=== PATIENT | female | born 1965 | race Caucasian/White ===

== ENCOUNTER 2017-03-12 22:32 | Inpatient (IN) ==
--- NOTE | 2017-03-12 22:56 | Emergency Department Note ---
Disposition Clinical Impression: Right fibular fracture Qualifiers: Encounter type: initial encounter Fibula location: proximal Fracture type: closed Fracture morphology: other fracture Qualified Code(s): S82.831A - Other fracture of upper and lower end of right fibula, initial encounter for closed fracture Disposition: Admitted As Inpatient Condition: Good Time of Disposition: 00:38 General Adult HPI - General Chief complaint: ED Extremity Injury, Lower Stated complaint: Right knee injury Time Seen by Provider: 03/12/17 22:46 Source: patient, EMS Limitations: no limitations Nursing Notes Reviewed: Yes Vital Signs Reviewed: Yes - History of Present Illness HPI Narrative: Female patient complaining of right knee pain. She states that she fell earlier today. She states this is mechanical fall. She was standing at the sink and the carpet came out from under her. She states she fell backwards. She denies striking her head. She reports right knee pain. There are no provoking or alleviating factors. She has taken her home Percocet to help with the pain. Pain Scale: 10 - Related Data Home Medications Medication Instructions Recorded Confirmed Carvedilol 3.125 mg PO BID 08/06/15 11/29/15 Cetirizine HCl [Zyrtec] 10 mg PO DAILY 08/06/15 11/29/15 Cholecalciferol (Vitamin D3) 1,000 unit PO DAILY 08/06/15 11/29/15 [Vitamin D3] Ferrous Sulfate 325 mg PO BID 08/06/15 11/29/15 OxyCODONE/APAP 5/325 [Percocet 1 tab PO BID PRN 08/06/15 11/29/15 5/325 MG] Pioglitazone HCl [Actos] 30 mg PO DAILY 08/06/15 11/29/15 Rosuvastatin [Crestor] 40 mg PO DAILY 08/06/15 11/29/15 Albuterol Sulfate [Ventolin Hfa] 1 - 2 puff IH Q6H 11/29/15 11/29/15 Gabapentin [Neurontin] 100 mg PO TID 11/29/15 11/29/15 Pantoprazole Sodium [Protonix] 40 mg PO DAILY 11/29/15 11/29/15 Previous Rx's Medication Instructions Recorded GuaiFENesin ER [Mucinex] 600 mg PO BID PRN #20 tbbp.12hr 12/02/15 Levofloxacin [Levaquin] 750 mg PO DAILY #7 tablet 12/02/15 Nystatin POWDER [Nystop] 1 appl TP BID #1 bottle 12/02/15 predniSONE [PredniSONE] 10 mg PO DAILY #40 tablet 12/02/15 Allergies Allergy/AdvReac Type Severity Reaction Status Date / Time No Known Allergies Allergy Verified 08/06/15 17:18 All systems ED: reviewed and negative except as stated. Constitutional: Denies: fever, chills ENT ED: Denies: congestion Cardiovascular: Denies: chest pain, palpitations, syncope Respiratory: Denies: cough, dyspnea Gastrointestinal: Denies: abdominal pain, nausea, vomiting, diarrhea Genitourinary: Denies: urgency, dysuria, frequency, hematuria Musculoskeletal: Reports: other (Right knee pain patient states she has bilateral knee pain chronically however her right knee hurt after her fall.). Denies: back pain, neck pain Integumentary: Reports: abrasion (To right knee). Denies: rash Neurological: Denies: headache, weakness, numbness, paresthesias Past Medical History - Past Medical History Medical history: Reports: asthma, COPD, diabetes, hyperlipidemia, hypertension, renal disease, other Surgical history: Reports: no surgical history Psychiatric history: Reports: no psych history AUTO BODY PAINTER history: Reports: no AUTO BODY PAINTER history - Social History Smoking Status: Current every day smoker Smokeless Tobacco Status: No Alcohol use: Reports: none Drug use: Reports: none Physical Exam - General Limitations: no limitations General appearance: alert, in no apparent distress - Head Head exam: atraumatic, normocephalic, normal inspection - Eye Eye exam: Present: normal appearance, PERRL, EOMI. Absent: scleral icterus - ENT ENT exam: normal exam, normal oropharynx, mucous membranes moist - Neck Neck exam: Present: normal inspection, full ROM, trachea midline. Absent: tenderness, meningismus, lymphadenopathy - Chest Chest inspection: Present: normal inspection, symmetric chest wall rise. Absent : tenderness - Respiratory Respiratory exam: Present: normal lung sounds bilaterally, respiratory distress. Absent: wheezes - Cardiovascular Cardiovascular exam: Present: regular rate, normal rhythm, normal heart sounds - Abdominal Exam Abdominal exam: Present: soft, Non-Tender, normal bowel sounds. Absent: tenderness, distention, guarding, rebound, rigidity, organomegaly - Extremities Exam Extremities exam: Present: normal inspection, full ROM, tenderness (To palpation of right tibial tuberosity. No laxity of right knee.), normal capillary refill. Absent: pedal edema, joint swelling, calf tenderness - Back Exam Back exam: Present: normal inspection, full ROM. Absent: tenderness - Neurological Exam Neurological exam: Present: alert, oriented X3, other (Patient unable to ambulate due to the pain in her right knee) - Psychiatric Psychiatric exam: Present: normal affect, normal mood - Skin Skin exam: Present: warm, dry, normal color, erythema. Absent: rash, cyanosis, diaphoresis Course Course Narrative: Female patient presenting to the emergency department in a wheelchair. She is complaining of right knee pain. Patient is unkempt while she is here. Her feet are dirty. She has a foul odor about her. She states she lives alone and takes care of herself. She states she was standing at the sink attempting to wash the dishes whenever the car breaking out from under her feet. She states she fell backwards. She denies striking her head. She only reports pain in her right knee. She had no episodes of syncope. She is not up-to-date on her tetanus shot but she is aware of. She does have a small abrasion to the patella area of her right knee. She has pain to palpation over the right tibial tuberosity. We will image this joint. She states she has taken Percocet at home prior to leaving to come to the hospital. I do not appreciate any laxity of her right knee joint. She does not have any ecchymosis. We will give her a tetanus shot while she is here and image the joint. The imaging showed a fibular fracture. We have placed patient in a posterior short leg splint and will admit to the hospital for inability to care for herself at home. She is unable to walk. I do not believe she will be able to care for herself at home with this injury. Vital Signs Temperature 98.2 F 03/12/17 22:35 Pulse Rate 55 03/12/17 22:35 Respiratory Rate 18 03/12/17 22:35 Blood Pressure 173/86 03/12/17 22:35 O2 Sat by Pulse Oximetry 94 03/12/17 22:35 Temperature 98.2 F 03/12/17 22:35 Pulse Rate 55 03/12/17 22:35 Respiratory Rate 18 03/12/17 22:35 Blood Pressure 173/86 03/12/17 22:35 O2 Sat by Pulse Oximetry 94 03/12/17 22:35 Oxygen Delivery Oxygen Delivery Room Air Medical Decision Making - Medical Records Medical records reviewed: Yes I reviewed the patient's medical records. - Radiology Data Radiology results reviewed: Yes I reviewed the patient's radiology results. Knee X-Ray 03/12/17 22:51 IMPRESSION: Oblique proximal fibular fracture. Multi compartmental degenerative changes at the knee. No fracture otherwise noted in the knee or the tibia/fibula D/ / Greg Mendes / Greg Mendes Interpreting Provider: Greg Mendes Tibia/Fibula X-Ray 03/12/17 22:51 IMPRESSION: Oblique proximal fibular fracture. Multi compartmental degenerative changes at the knee. No fracture otherwise noted in the knee or the tibia/fibula D/ / Greg Mendes / Greg Mendes Interpreting Provider: Greg Mendes Attestation Statement - Attestation Attestation: I, Dante Montez, examined this patient and my medical decision-making was reviewed with the LINE MECHANIC/PA/Advanced Practice Nurse/Resident Physician. I agree with the documented findings, disposition and treatment plan as described except to the extent set forth below. 52-year-old female presents with concerns of right knee pain. Patient states she was standing at her sink when the rug slipped out from underneath of her causing a mechanical fall. Denies hitting her head or having loss of consciousness. Patient complains of pain only to the right lateral knee. X- ray of the right tib-fib shows a proximal oblique fibular fracture. Patient is unable to ambulate emergency department. She is morbidly obese and is unable to use crutches. Patient will be admitted to hospital for further care and evaluation likely placement at a rehabilitation facility. I spoke to Dr. Means regarding the patient's case and presentation upon request of the hospitalist who will follow while in the hospital.
[2017-03-13] MEDS ORDERED: Tdap (Boostrix) Vaccine 0.5 ML SYRINGE IM ONE (00:30)
[2017-03-13] MEDS ORDERED: Ondansetron 4 MG/2 ML VIAL IVP PRN (00:54)
[2017-03-13] MEDS ORDERED: *HR* OxyCODONE Immed Rel 5 MG TABLET PO PRN (00:54)
[2017-03-13] MEDS ORDERED: Naloxone 0.4 MG/ML INJ IVP PRN (00:54)
[2017-03-13] MEDS ORDERED: Acetaminophen 325 MG TABLET PO PRN (00:54)
[2017-03-13] MEDS ORDERED: Dextrose Gel 15 GM PO PRN ×2 (00:58)
[2017-03-13] MEDS ORDERED: *HR* Dextrose 50 % in Water (Syg) 50 ML SYRINGE IVP PRN (00:58)
[2017-03-13] MEDS ORDERED: D5% in Water 1,000 ML IVC PRN (00:58)
--- NOTE | 2017-03-13 01:01 | Internal Med History&Physical ---
Date of Encounter: 03/13/17 Time of Encounter: 00:30 Assessment and Plan (1) Right fibular fracture Current visit: Yes Status: Acute Patient had a mechanical fall and has right knee pain. Tenderness to palpation over the right knee and lateral aspect of the right leg. X-ray reveals proximal fibular fracture that is oblique. Patient be admitted to inpatient status. Expected to be in the hospital for at least 2 midnights. Moderate due to risk of risk of further falls and morbidity. Expected discharge disposition is to home. Orthopedics consult. Physical therapy and occupational therapy consults. Pain control. Qualifiers: Encounter type: initial encounter Fracture type: closed Fracture morphology: oblique Fracture alignment: nondisplaced Qualified Code(s): S82.434A - Nondisplaced oblique fracture of shaft of right fibula, initial encounter for closed fracture (2) DM2 (diabetes mellitus, type 2) Current visit: Yes Status: Chronic Resume home medications. Sliding scale insulin. Patient has chronic kidney disease stage III. Will obtain labs to assess her renal function. 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 mellitus oysterman insulin use: without penitentiary use Chronic kidney disease stage: stage 3 (moderate) Qualified Code(s): E11.22 - Type 2 diabetes mellitus with diabetic chronic kidney disease; N18.3 - Chronic kidney disease, stage 3 ( moderate) (3) HTN (hypertension) Current visit: Yes Status: Chronic Controlled blood pressure. Continue home medications. Qualifiers: Hypertension type: essential hypertension Qualified Code(s): I10 - Essential (primary) hypertension (4) Tobacco abuse Current visit: Yes Status: Chronic Counseled regarding the need for cessation. Patient not willing to quit. Nicotine replacement therapy offered. Patient refused. (5) Morbid obesity with BMI of 50.0-59.9, adult Current visit: No Status: Chronic Internal Medicine - H&P: HPI Chief complaint: Fall and right knee pain Admitted From: Emergency Dept Plans for Post Hospital Care: Home History of present illness: Ms. Alexander is a 52 year old female who was brought to the emergency department why EMS after she sustained a fall and right knee pain. Patient states that she was standing in her kitchen washing dishes when the matter and her her legs slipped and she fell down hitting her back and right leg. She states that she started developing 9/10 pain in her right knee. She also reports 9/10 pain in her lower back in the middle. She denies any radiation of the pain. Pain is aggravated with movement and relieved with rest and pain medications. She denies any nausea or vomiting. She denies passing out after the fall. She denies hitting her head after the fall. She denies feeling lightheaded or having palpitations prior to the fall. She denies having any fever or chills. She states that she uses a cane at home. Past Med Surg Social Fam HX - Past Medical History Attestation: Yes The following information was validated with the patient. Source: patient Medical history: asthma, COPD, diabetes, hyperlipidemia, hypertension, renal disease, other Psychiatric history: no psych history - Past Surgical History Surgical History: non-contributory - Social History Smoking Status: Current every day smoker Packs per day: 2 Smokeless Tobacco Status: No Alcohol use: none Drug use: none Current living situation: Home, With Family Activity Level: Uses cane/walker Recent Out of Country Travel Within the Last 8 Weeks: No Exposure or Possible Exposure to Illness During Travel: No - Family History Mother Adopted: No Family Member Ethnicity: Non- Living Status: Hx Family Cardiac Disorders: Yes (SISTER) Hx Family Respiratory Disorders: Yes (DAD) Hx Family Cancer: No Hx Family GI Disorders: No Hx Family Endocrine Disorder: Yes (MOTHER) Hx Family Neuromuscular Disorders: No Hx Family Neurologic Disorders: No Hx Family HEENT Disorders: No Hx Family Autoimmune Disorders: No Father Living Status: Hx Family Cancer: Yes (Lung CA) Internal Medicine - H&P: Meds Carvedilol 3.125 mg PO BID 08/06/15 [History] Cetirizine HCl [Zyrtec] 10 mg PO DAILY 08/06/15 [History] Cholecalciferol (Vitamin D3) [Vitamin D3] 1,000 unit PO DAILY 08/06/15 [History] Ferrous Sulfate 325 mg PO BID 08/06/15 [History] OxyCODONE/APAP 5/325 [Percocet 5/325 MG] 1 tab PO BID PRN 08/06/15 [History] Pioglitazone HCl [Actos] 30 mg PO DAILY 08/06/15 [History] Rosuvastatin [Crestor] 40 mg PO DAILY 08/06/15 [History] Albuterol Sulfate [Ventolin Hfa] 1 - 2 puff IH Q6H 11/29/15 [History] Gabapentin [Neurontin] 100 mg PO TID 11/29/15 [History] Pantoprazole Sodium [Protonix] 40 mg PO DAILY 11/29/15 [History] GuaiFENesin ER [Mucinex] 600 mg PO BID PRN #20 tbbp.12hr 12/02/15 [Rx] Levofloxacin [Levaquin] 750 mg PO DAILY #7 tablet 12/02/15 [Rx] Nystatin POWDER [Nystop] 1 appl TP BID #1 bottle 12/02/15 [Rx] predniSONE [PredniSONE] 10 mg PO DAILY #40 tablet 12/02/15 [Rx] Allergies No Known Allergies Allergy (Verified 08/06/15 17:18) All Systems PM: A 10-system review of systems was performed and is negative for pertinent findings except as documented above in the HPI. Review of systems: 10 systems have been reviewed and are negative except as mentioned in the history of present illness - Constitutional Vitals: Temp Pulse Resp BP Pulse Ox 98.2 F 55 14 154/79 94 03/12/17 22:35 03/12/17 22:35 03/13/17 00:56 03/13/17 00:56 03/12/17 22:35 Exam: Gen.: Lying in bed. Mild to moderate distress. Eyes: Pupils equal, round and reactive to light. Extraocular muscles intact. ENT: Moist mucous membranes. No oropharyngeal erythema or discharge. Chest: Clear to auscultation bilaterally. No adventitious sounds present. CVS: First and second heart sounds present. No murmurs, rubs or gallops. Abdomen: Soft, nontender, obese. Bowel sounds present. Skin: No decubitus ulcers appreciated. WAREHOUSE TECHNICIAN: No focal neuro deficits present. Psychiatric: Alert, awake and oriented to time, place and person. Lymphatic system: No lymphadenopathy appreciated Musculoskeletal: Tenderness to palpation over the right knee on the lateral aspect. Internal Med - H&P Results - Diagnostic Studies Other Images Status: image reviewed by me Additional comments: Knee x-ray and tibia/fibula [id number] fracture of the proximal fibula
[2017-03-13 04:03] LABS: Basophils % 0.4 %; Eosinophils # 0.1 K/mcL (0.0-0.6); Eosinophils % 1.2 %; Hematocrit 40.9 % (35.3-44.9); Immature Granulocytes % 0.3 % (0-4); Lymphocytes # 0.8 K/mcL (0.6-4.6); Lymphocytes % 12.1 %; Mean Corpuscular HGB Conc 31.8 g/dL (31.6-35.5); Mean Corpuscular Hemoglobin 28.9 pg (28.0-33.3); Mean Corpuscular Volume 90.9 fL (83.0-100.0); Monocytes # 0.4 K/mcL (0.0-1.3); Monocytes % 6.3 %; Neutrophils # 5.3 K/mcL (1.6-8.9); Platelet Count 185 K/mcL (140-400); Red Cell Distribution Width 14.5 % (11.5-14.5); Segmented Neutrophils % 79.7 %
[2017-03-13 04:12] LABS: Albumin 3.6 g/dL (3.5-5.0); Albumin/Globulin Ratio 1.1 (1.1-2.2); Bilirubin,Total 0.7 mg/dL (0.2-1.2); Calcium 9.1 mg/dL (8.6-10.8); Globulin 3.3 g/dL (2.4-3.5); Potassium 4.3 mEq/L (3.5-4.5); Total Protein 6.9 g/dL (6.0-8.3)
[2017-03-13] MEDS: *HR* Heparin 5,000 UNIT/ML VIAL SQ SCH ×3 (09:09→23:23)
[2017-03-13] MEDS: Insulin LISPRO 300 UNITS/3 ML VIAL SQ SCH ×4 (09:10→20:16)
--- NOTE | 2017-03-13 14:33 | Orthopedic Consult Note ---
Date of Encounter: 03/13/17 Time of Encounter: 14:21 History of Present Illness Chief complaint: Right knee pain HPI: Ms. Alexander is a 52 year old female who sustained an injury to her right knee when she fell in her home. She states that she had a mechanical fall related to a carpet putting out from under her. She has only complaints of right knee pain. She denies any ankle pain though she does have a history of an ankle injury several weeks prior. He is having difficulty with ambulation due to the pain in around her knee. Patient also relates a history of having some chronic arthritic knee pain. For complete history and physical data please refer to the completed portion of the medical record. Pertinent orthopedic examination at this time reveals tenderness about the posterolateral aspect of the right knee. Exam is difficult due to the patient' s significant body habitus. No evidence of pain at the foot or ankle. Patient does have a BMI of 57.3. Reviewed x-rays of the right knee and the tibia and fibula. There are advanced arthritic changes manifested by tricompartmental spurring and significant medial femorotibial narrowing. These are not weightbearing x-rays. There is a oblique, nondisplaced fracture of the right fibular head. Impression: #1. Nondisplaced fracture right fibular head #2. Morbid obesity with BMI 57.3 #3. Advanced osteoarthritis bilateral knees Recommendation: This is purely a symptomatic treatment fracture. Would remove any braces or splints and start ambulation training with weightbearing as tolerated. I do not think there is any need for additional x-rays or follow-up unless there is a problem. Thank you very much for allowing me to see and care for Mrs. Alexander. Sincerely, Kaiden Means,DO Past Med Surg Social Fam HX - Past Medical History Medical history: asthma, COPD, diabetes, hyperlipidemia, hypertension, renal disease, other Psychiatric history: no psych history - Past Surgical History Surgical History: non-contributory - Social History Smoking Status: Current every day smoker Packs per day: 2 Smokeless Tobacco Status: No Alcohol use: none Drug use: none - Family History Mother Adopted: No Family Member Ethnicity: Non- Living Status: Hx Family Cardiac Disorders: Yes (SISTER) Hx Family Respiratory Disorders: Yes (DAD) Hx Family Cancer: No Hx Family GI Disorders: No Hx Family Endocrine Disorder: Yes (MOTHER) Hx Family Neuromuscular Disorders: No Hx Family Neurologic Disorders: No Hx Family HEENT Disorders: No Hx Family Autoimmune Disorders: No Father Living Status: Hx Family Cancer: Yes (Lung CA) Medications and Allergies Carvedilol 3.125 mg PO BID 08/06/15 [History] Cetirizine HCl [Zyrtec] 10 mg PO DAILY 08/06/15 [History] Ferrous Sulfate 325 mg PO BID 08/06/15 [History] OxyCODONE/APAP 5/325 [Percocet 5/325 MG] 1 tab PO TID PRN 08/06/15 [History] Rosuvastatin [Crestor] 40 mg PO HS 08/06/15 [History] Albuterol Sulfate [Ventolin Hfa] 2 puff IH Q6H PRN 11/29/15 [History] Pantoprazole Sodium [Protonix] 40 mg PO DAILY 11/29/15 [History] Nystatin POWDER [Nystop] 1 appl TP BID #1 bottle 12/02/15 [Rx] Cholecalciferol (D-3) [Vitamin D] 1,000 unit PO DAILY 03/13/17 [History] Gabapentin [Neurontin] 300 mg PO TID 03/13/17 [History] Losartan [Cozaar] 25 mg PO DAILY 03/13/17 [History] MetroNIDAZOLE [Rosadan] 1 appl TP BID 03/13/17 [History] Tiotropium [Spiriva] 18 mcg IH DAILY 03/13/17 [History] Allergies No Known Allergies Allergy (Verified 08/06/15 17:18) All Systems Reviewed: A 10-system review of systems was performed and is negative for pertinent findings except as documented above in the HPI. Physical Exam - Constitutional Vitals: Temp Pulse Resp BP Pulse Ox 98.2 F 56 18 159/82 97 03/13/17 11:33 03/13/17 11:33 03/13/17 11:33 03/13/17 11:33 03/13/17 11:33 Results - Labs Result Diagrams: 03/13/17 03:35 03/13/17 03:35 Labs: Abnormal lab results Creatinine 1.33 mg/dL (0.57-1.11) H 03/13/17 03:35 Est GFR ( Amer) 51 (> 60) L 03/13/17 03:35 Est GFR (Non-Af Amer) 42 (> 60) L 03/13/17 03:35 Glucose 147 mg/dL (70-99) H 03/13/17 03:35 POC Glucose 134 (58-89) H 03/13/17 01:43 All other labs normal. - Diagnostic results Knee x-ray: image reviewed Ankle/Foot x-ray: image reviewed Consult Discharge Plan - Plan Referrals: Shalonda Crowell MD [Primary Care Provider] -
--- NOTE | 2017-03-13 17:04 | Internal Med Progress Note ---
Date of Encounter: 03/13/17 Time of Encounter: 17:02 - Assessment and plan (1) CKD (chronic kidney disease) stage 3, GFR 30-59 ml/min Current Visit: No Status: Chronic (2) Morbid obesity with BMI of 50.0-59.9, adult Current Visit: No Status: Chronic (3) DM2 (diabetes mellitus, type 2) Current Visit: Yes Status: Chronic 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 mellitus superintendent terminal insulin use: without custodial use Chronic kidney disease stage: stage 3 (moderate) Qualified Code(s): E11.22 - Type 2 diabetes mellitus with diabetic chronic kidney disease; N18.3 - Chronic kidney disease, stage 3 ( moderate) (4) Acute worsening of stage 3 chronic kidney disease Current Visit: No Status: Resolved (5) Right fibular fracture Current Visit: Yes Status: Acute Qualifiers: Encounter type: initial encounter Fracture type: closed Fracture morphology: oblique Fracture alignment: nondisplaced Qualified Code(s): S82.434A - Nondisplaced oblique fracture of shaft of right fibula, initial encounter for closed fracture (6) HTN (hypertension) Current Visit: Yes Status: Chronic Qualifiers: Hypertension type: essential hypertension Qualified Code(s): I10 - Essential (primary) hypertension - Subjective Interval history: Mrs. Ada Alexander is a 52-year-old female who had a mechanical fall at home resulted in right fibular head fracture which is nondisplaced. For some reason she was decided to be admitted although it seems like that this sort of fracture would not need any further intervention. In any case orthopedics has seen the patient recommended to start bearing weight and ambulate. Patient wants to go home tomorrow the patient will be discharged tomorrow with outpatient physical therapy and pain management. No other complaint. She denies hitting her head neck or any other body part during this accident. She was complaining of knee pain for which x-rays were obtained which showed osteoarthritis. This has to be dealt as outpatient. Her creatinine was elevated which is reordered for the follow-up. - Constitutional Vitals: Temp Pulse Resp BP Pulse Ox 98.2 F 56 16 133/82 95 03/13/17 15:06 03/13/17 15:06 03/13/17 15:06 03/13/17 15:06 03/13/17 15:06 - Head Head exam: Present: atraumatic, normocephalic - Eye Eye exam: Present: PERRL, conjuntiva pink, sclera anicteric Pupils: Present: PERRL - Neck Neck exam general surgery: Present: supple, trachea midline. Absent: lymphadenopathy - Respiratory Respiratory exam: Present: CTAB. Absent: accessory muscle use, rales, rhonchi, wheezes - Cardiovascular Cardiovascular exam: Present: RRR, +S1, +S2. Absent: diastolic murmur, gallop, rubs, systolic murmur - GI/Abdominal GI/Abdominal exam: Present: normal bowel sounds, soft, no peritoneal signs. Absent: distended, tenderness - Extremities Exam Extremities exam: Present: warm, radial pulses palpable and symetrical. Absent : calf tenderness, cyanotic, pedal edema Additional comments: Patient did not allow us to examine her knees as she feels quite quite a bit of pain. She expressed tenderness when some pressure was applied at the lateral side of her leg. No Other complaints. - Neurological Exam Neurological exam: Present: CN II-XII intact, oriented X3, no focal deficits. Absent: pronater drift, facial droop, speech deficit - Skin Skin exam: Present: dry, intact Internal Medicine: Result - Labs CBC & Chem 7: 03/13/17 03:35 03/13/17 03:35 Consult Discharge Plan - Plan Referrals: Shalonda Crowell MD [Primary Care Provider] -
[2017-03-13] MEDS: *HR* Morphine 2 MG/ML SYRINGE IVP PRN (20:32)
[2017-03-14] MEDS: *HR* Morphine 2 MG/ML SYRINGE IVP PRN ×3 (02:07→23:46)
[2017-03-14 04:25] LABS: Basophils % 0.6 %; Eosinophils # 0.1 K/mcL (0.0-0.6); Eosinophils % 2.4 %; Hematocrit 39.7 % (35.3-44.9); Hemoglobin 12.8 g/dL (11.5-15.4); Immature Granulocytes % 0.2 % (0-4); Lymphocytes # 0.8 K/mcL (0.6-4.6); Lymphocytes % 15.2 %; Mean Corpuscular HGB Conc 32.2 g/dL (31.6-35.5); Mean Corpuscular Hemoglobin 29.2 pg (28.0-33.3); Mean Corpuscular Volume 90.4 fL (83.0-100.0); Mean Platelet Volume 10.2 fL (9.4-12.4); Monocytes # 0.4 K/mcL (0.0-1.3); Monocytes % 7.9 %; Neutrophils # 3.6 K/mcL (1.6-8.9); Platelet Count 178 K/mcL (140-400); Red Blood Count 4.39 M/mcL (3.82-4.97); Red Cell Distribution Width 14.3 % (11.5-14.5); Segmented Neutrophils % 73.7 %
[2017-03-14 05:57] LABS: Albumin 3.4 g/dL (3.5-5.0); Calcium 9.3 mg/dL (8.6-10.8); Globulin 3.5 g/dL (2.4-3.5); Potassium 4.5 mEq/L (3.5-4.5); Total Protein 6.9 g/dL (6.0-8.3)
[2017-03-14] MEDS: Insulin LISPRO 300 UNITS/3 ML VIAL SQ SCH ×4 (07:33→21:11)
[2017-03-14] MEDS: *HR* Heparin 5,000 UNIT/ML VIAL SQ SCH ×3 (07:56→23:48)
--- NOTE | 2017-03-14 16:03 | Physician Discharge Referral ---
ExtendedCare Referral Info Transfer To: ECF Provider in Charge: bhavani Provider in Charge after Transfer: PCP Institutional Level of Care: Skilled - Diagnosis (1) CKD (chronic kidney disease) stage 3, GFR 30-59 ml/min Status: Chronic (2) Morbid obesity with BMI of 50.0-59.9, adult Status: Chronic (3) DM2 (diabetes mellitus, type 2) Status: Chronic (4) Acute worsening of stage 3 chronic kidney disease Status: Resolved (5) Right fibular fracture Status: Acute (6) HTN (hypertension) Status: Chronic - Transfer Medications Home Medications: Carvedilol 3.125 mg PO BID 08/06/15 [History] Cetirizine HCl [Zyrtec] 10 mg PO DAILY 08/06/15 [History] Ferrous Sulfate 325 mg PO BID 08/06/15 [History] OxyCODONE/APAP 5/325 [Percocet 5/325 MG] 1 tab PO TID PRN 08/06/15 [History] Rosuvastatin [Crestor] 40 mg PO HS 08/06/15 [History] Albuterol Sulfate [Ventolin Hfa] 2 puff IH Q6H PRN 11/29/15 [History] Pantoprazole Sodium [Protonix] 40 mg PO DAILY 11/29/15 [History] Nystatin POWDER [Nystop] 1 appl TP BID #1 bottle 12/02/15 [Rx] Cholecalciferol (D-3) [Vitamin D] 1,000 unit PO DAILY 03/13/17 [History] Gabapentin [Neurontin] 300 mg PO TID 03/13/17 [History] Losartan [Cozaar] 25 mg PO DAILY 03/13/17 [History] MetroNIDAZOLE [Rosadan] 1 appl TP BID 03/13/17 [History] Tiotropium [Spiriva] 18 mcg IH DAILY 03/13/17 [History] Allergies/Adverse Reactions: Allergies No Known Allergies Allergy (Verified 08/06/15 17:18) - Respiratory Orders Smoking Cessation: Smoking cessation has been advised. For more information, call the [place] Tobacco Quit Line at 4-987-XHTT-NOW. CERTIFICATION: I certify that the transfer of the above named patient to an Extended Care Facility is necessary for the continuing treatment of the diagnosis listed. The above information is true and accurate reflection of patient's current condition. Confidential - Redisclosure prohibited without a patient's written consent.
--- NOTE | 2017-03-14 16:07 | Discharge Summary ---
Date of Encounter: 03/14/17 Time of Encounter: 16:05 - Discharge Diagnosis (1) CKD (chronic kidney disease) stage 3, GFR 30-59 ml/min Priority: Secondary Status: Chronic (2) Morbid obesity with BMI of 50.0-59.9, adult Priority: Secondary Status: Chronic (3) DM2 (diabetes mellitus, type 2) Priority: Secondary Status: Chronic 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 mellitus assisted insulin use: without assisted use Chronic kidney disease stage: stage 3 (moderate) Qualified Code(s): E11.22 - Type 2 diabetes mellitus with diabetic chronic kidney disease; N18.3 - Chronic kidney disease, stage 3 ( moderate) (4) Acute worsening of stage 3 chronic kidney disease Priority: Secondary Status: Resolved (5) Right fibular fracture Priority: Primary Status: Acute Qualifiers: Encounter type: initial encounter Fracture type: closed Fracture morphology: oblique Fracture alignment: nondisplaced Qualified Code(s): S82.434A - Nondisplaced oblique fracture of shaft of right fibula, initial encounter for closed fracture (6) HTN (hypertension) Priority: Secondary Status: Chronic Qualifiers: Hypertension type: essential hypertension Qualified Code(s): I10 - Essential (primary) hypertension - Discharge Medications Home Medications: Carvedilol 3.125 mg PO BID 08/06/15 [History] Cetirizine HCl [Zyrtec] 10 mg PO DAILY 08/06/15 [History] Ferrous Sulfate 325 mg PO BID 08/06/15 [History] OxyCODONE/APAP 5/325 [Percocet 5/325 MG] 1 tab PO TID PRN 08/06/15 [History] Rosuvastatin [Crestor] 40 mg PO HS 08/06/15 [History] Albuterol Sulfate [Ventolin Hfa] 2 puff IH Q6H PRN 11/29/15 [History] Pantoprazole Sodium [Protonix] 40 mg PO DAILY 11/29/15 [History] Nystatin POWDER [Nystop] 1 appl TP BID #1 bottle 12/02/15 [Rx] Cholecalciferol (D-3) [Vitamin D] 1,000 unit PO DAILY 03/13/17 [History] Gabapentin [Neurontin] 300 mg PO TID 03/13/17 [History] Losartan [Cozaar] 25 mg PO DAILY 03/13/17 [History] MetroNIDAZOLE [Rosadan] 1 appl TP BID 03/13/17 [History] Tiotropium [Spiriva] 18 mcg IH DAILY 03/13/17 [History] Acetaminophen [Tylenol] 650 mg PO Q6HR PRN #0 tablet 03/14/17 [Rx] Heparin 5,000 unit SQ Q8HR vial 03/14/17 [Rx] Lidocaine Patch [Lidoderm 5% patch] 2 each TP DAILY adh..patch 03/14/17 [Rx] Allergies/Adverse Reactions: Allergies No Known Allergies Allergy (Verified 08/06/15 17:18) Date of admission: 03/13/17 04:48 Primary care physician: Shalonda Crowell, Consults: 03/14/17 10:29 Consult to Warehouse Receiving Clerk [CONS] Routine Reason for SW Consult: Possible ECF placement Discharging clinician: Sushil Lua Anticipated date of discharge: 03/14/17 - Patient Status Disposition: Transfer SNF Condition: Good Overall status at discharge: patient is progressing back to baseline - Discharge Instructions Follow Up With: Shalonda Crowell MD [Primary Care Provider] - - Diet and Activity Activity: as per physical therapy, increase activity as tolerated Diet: advance to your usual diet Hospital course: Mrs. Ada Alexander is a 52-year-old female who had a mechanical fall at home resulted in right fibular head fracture which is nondisplaced. For some reason she was decided to be admitted although it seems like that this sort of fracture would not need any further intervention. In any case orthopedics has seen the patient recommended to start bearing weight and ambulate. Patient wants to go E for physical therapy and pain management. No other complaint. She denies hitting her head neck or any other body part during this accident. She was complaining of knee pain for which x-rays were obtained which showed osteoarthritis. This has to be dealt as outpatient. Her creatinine was elevated with repeat testing it has come down and seems to be stable. Patient is discharged to nursing facility for physical rehabilitation.. - Time Spent with Patient Total time spent providing and/or coordinating discharge services: Greater than 30 minutes - Constitutional Vitals: Temp Pulse Resp BP Pulse Ox 98.6 F 62 18 143/84 95 03/14/17 10:55 03/14/17 10:55 03/14/17 10:55 03/14/17 10:55 03/14/17 10:55 - Head Head exam: Present: atraumatic, normocephalic - Eye Eye exam: Present: PERRL, conjuntiva pink, sclera anicteric Pupils: Present: PERRL - Neck Neck exam general surgery: Present: supple, trachea midline. Absent: lymphadenopathy - Respiratory Respiratory exam: Present: CTAB. Absent: accessory muscle use, rales, rhonchi, wheezes - Cardiovascular Cardiovascular exam: Present: RRR, +S1, +S2. Absent: diastolic murmur, gallop, rubs, systolic murmur - GI/Abdominal GI/Abdominal exam: Present: normal bowel sounds, soft, no peritoneal signs. Absent: distended, tenderness - Extremities Exam Extremities exam: Present: warm, radial pulses palpable and symetrical. Absent : calf tenderness, cyanotic, pedal edema Additional comments: Tenderness around right we will ahead has improved and now as a squeeze her calf muscle then not as tender - Neurological Exam Neurological exam: Present: CN II-XII intact, oriented X3, no focal deficits. Absent: pronater drift, facial droop, speech deficit - Skin Skin exam: Present: dry, intact
[2017-03-15 04:26] LABS: Basophils % 0.5 %; Eosinophils # 0.1 K/mcL (0.0-0.6); Hematocrit 40.1 % (35.3-44.9); Hemoglobin 12.8 g/dL (11.5-15.4); Immature Granulocytes % 0.2 % (0-4); Lymphocytes % 25.4 %; Mean Corpuscular HGB Conc 31.9 g/dL (31.6-35.5); Mean Corpuscular Hemoglobin 28.6 pg (28.0-33.3); Mean Corpuscular Volume 89.7 fL (83.0-100.0); Mean Platelet Volume 10.2 fL (9.4-12.4); Monocytes # 0.4 K/mcL (0.0-1.3); Monocytes % 9.5 %; Neutrophils # 2.5 K/mcL (1.6-8.9); Platelet Count 178 K/mcL (140-400); Red Blood Count 4.47 M/mcL (3.82-4.97); Red Cell Distribution Width 14.2 % (11.5-14.5); Segmented Neutrophils % 61.4 %
[2017-03-15 04:45] LABS: Albumin 3.3 g/dL (3.5-5.0); Calcium 9.3 mg/dL (8.6-10.8); Globulin 3.4 g/dL (2.4-3.5); Potassium 4.1 mEq/L (3.5-4.5); Total Protein 6.7 g/dL (6.0-8.3)
[2017-03-15] MEDS: Insulin LISPRO 300 UNITS/3 ML VIAL SQ SCH ×2 (09:34→13:13)
[2017-03-15] MEDS: *HR* Heparin 5,000 UNIT/ML VIAL SQ SCH (09:40)
--- NOTE | 2017-03-15 09:59 | Discharge Summary ---
Date of Encounter: 03/15/17 Time of Encounter: 09:54 - Discharge Diagnosis (1) CKD (chronic kidney disease) stage 3, GFR 30-59 ml/min Priority: Secondary Status: Chronic (2) Tobacco abuse Priority: Secondary Status: Chronic (3) Morbid obesity with BMI of 50.0-59.9, adult Priority: Secondary Status: Chronic (4) DM2 (diabetes mellitus, type 2) Priority: Secondary Status: Chronic 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 mellitus intermediate frame tender insulin use: without detention use Chronic kidney disease stage: stage 3 (moderate) Qualified Code(s): E11.22 - Type 2 diabetes mellitus with diabetic chronic kidney disease; N18.3 - Chronic kidney disease, stage 3 ( moderate) (5) Right fibular fracture Priority: Primary Status: Acute Qualifiers: Encounter type: initial encounter Fracture type: closed Fracture morphology: oblique Fracture alignment: nondisplaced Qualified Code(s): S82.434A - Nondisplaced oblique fracture of shaft of right fibula, initial encounter for closed fracture (6) HTN (hypertension) Priority: Secondary Status: Chronic Qualifiers: Hypertension type: essential hypertension Qualified Code(s): I10 - Essential (primary) hypertension - Discharge Medications Prescriptions: Gabapentin [Neurontin] 300 mg PO TID #90 capsule OxyCODONE/APAP 5/325 [Percocet 5/325 MG] 1 tab PO TID PRN #30 tablet PRN Reason: Pain Home Medications: Carvedilol 3.125 mg PO BID 08/06/15 [History] Cetirizine HCl [Zyrtec] 10 mg PO DAILY 08/06/15 [History] Ferrous Sulfate 325 mg PO BID 08/06/15 [History] Rosuvastatin [Crestor] 40 mg PO HS 08/06/15 [History] Albuterol Sulfate [Ventolin Hfa] 2 puff IH Q6H PRN 11/29/15 [History] Pantoprazole Sodium [Protonix] 40 mg PO DAILY 11/29/15 [History] Nystatin POWDER [Nystop] 1 appl TP BID #1 bottle 12/02/15 [Rx] Cholecalciferol (D-3) [Vitamin D] 1,000 unit PO DAILY 03/13/17 [History] Losartan [Cozaar] 25 mg PO DAILY 03/13/17 [History] MetroNIDAZOLE [Rosadan] 1 appl TP BID 03/13/17 [History] Tiotropium [Spiriva] 18 mcg IH DAILY 03/13/17 [History] Acetaminophen [Tylenol] 650 mg PO Q6HR PRN #0 tablet 03/14/17 [Rx] Heparin 5,000 unit SQ Q8HR vial 03/14/17 [Rx] Lidocaine Patch [Lidoderm 5% patch] 2 each TP DAILY adh..patch 03/14/17 [Rx] Gabapentin [Neurontin] 300 mg PO TID #90 capsule 03/15/17 [Rx] OxyCODONE/APAP 5/325 [Percocet 5/325 MG] 1 tab PO TID PRN #30 tablet 03/15/17 [ Rx] Allergies/Adverse Reactions: Allergies No Known Allergies Allergy (Verified 08/06/15 17:18) Date of admission: 03/13/17 04:48 Primary care physician: Shalonda Crowell, Consults: 03/14/17 10:29 Consult to Procedure Tech [CONS] Routine Reason for SW Consult: Possible ECF placement - Patient Status Disposition: Transfer SNF Condition: Good Overall status at discharge: patient is progressing back to baseline - Discharge Instructions Follow Up With: Shalonda Crowell MD [Primary Care Provider] - - Diet and Activity Activity: as per physical therapy, increase activity as tolerated Diet: diabetic diet, low fat, low cholesterol, low salt diet Interval History: She reports mild right lower leg pain with bearing weight, currently 0/10 at rest. No chest pain or shortness of breath reported. Per nursing reports she was a to assist this morning however the patient says that she was able to walk herself to the commode yesterday. Hospital course: Ms. Alexander is a 52 year old female with past medical history significant for hypertension, type 2 diabetes, chronic kidney disease and morbid obesity who was admitted for evaluation and treatment of an acute right fibular fracture which resulted after a fall. Orthopedics was consulted. They recommended conservative management. Patient was managed with oral pain medication. Heparin was provided for DVT prophylaxis and we recommend that heparin should be continued for at least 2 weeks due to high risk of DVT secondary to decreased mobility and acute right lower extremity fracture. Her creatinine is at baseline. Pain is well-controlled with topical lidocaine and oral Percocet. She is medically stable for discharge to subacute rehabilitation. Time spent discussing smoking cessation with patient: 3 to 10 minutes - Time Spent with Patient Total time spent providing and/or coordinating discharge services: Less than 30 minutes - Constitutional Vitals: Temp Pulse Resp BP Pulse Ox 98.0 F 58 14 129/78 94 03/15/17 06:33 03/15/17 06:33 03/15/17 06:33 03/15/17 06:33 03/15/17 06:33 General appearance: Present: A&O X 3, answers questions appropriately - Respiratory Respiratory exam: Present: CTAB. Absent: accessory muscle use, rales, rhonchi, wheezes - Cardiovascular Cardiovascular exam: Present: RRR, +S1, +S2. Absent: diastolic murmur, gallop, rubs, systolic murmur - Extremities Exam Extremities exam: Present: warm, radial pulses palpable and symetrical. Absent : calf tenderness, cyanotic, pedal edema
[2017-03-15 11:07] VITALS: BP 147/82
== END 2017-03-15 13:10 | DRG 563 ==
LOC: 3NENU 22:32 → EMEROO 22:32 → 3NENU 03-13 00:58 → SUATTDRO 03-13 04:48
PROVIDERS: ADMIT Internal Medicine Sleep Medicine; ATTEND Internal Medicine

== ENCOUNTER 2017-11-08 21:05 | Inpatient (IN) ==
[2017-11-08 22:25] LABS: Calcium 9.3 mg/dL (8.6-10.3)
[2017-11-08 22:28] LABS: Basophils % 0.3 %; Eosinophils % 0.2 %; Hematocrit 42.2 % (35.3-44.9); Hemoglobin 13.4 g/dL (11.5-15.4); Immature Granulocytes % 0.3 % (0-4); Lymphocytes # 0.8 K/mcL (0.6-4.6); Lymphocytes % 9.5 %; Mean Corpuscular HGB Conc 31.8 g/dL (31.6-35.5); Mean Corpuscular Hemoglobin 28.3 pg (28.0-33.3); Mean Platelet Volume 10.6 fL (9.4-12.4); Monocytes # 0.7 K/mcL (0.0-1.3); Monocytes % 8.1 %; Neutrophils # 7.1 K/mcL (1.6-8.9); Platelet Count 245 K/mcL (140-400); Red Blood Count 4.74 M/mcL (3.82-4.97); Red Cell Distribution Width 13.8 % (11.5-14.5); Segmented Neutrophils % 81.6 %
--- NOTE | 2017-11-08 22:48 | Emergency Department Note ---
Disposition Clinical Impression: Acute exacerbation of chronic obstructive airways disease Disposition: Still a Patient Condition: Good Referrals: Shalonda Crowell MD [Primary Care Provider] - Forms: ED Satisfaction Letter SOB HPI - General Chief Complaint: ED Shortness of Breath/Dyspnea Stated Complaint: "MOHAN/Dizzy/Headache" Time Seen by Provider: 11/08/17 21:36 Source: patient Mode of arrival: ambulatory Limitations: no limitations Nursing Notes Reviewed: Yes Vital Signs Reviewed: Yes - History of Present Illness 52-year-old female who comes in complaining of cough congestion shortness of breath. Patient does have a history of COPD has progressive shortness of breath. He was seen at outside facility told she had a viral infection and was given cough syrup. 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 Context: recent illness Severity: moderate Consistency/Duration: constant Improves with: nothing Known history of: COPD Associated symptoms: Reports: fever, cough, wheezing Treatment prior to arrival: none Cough present: Yes Cough Description: Involuntary Cough Frequency: Continuous - Related Data Home Medications Medication Instructions Recorded Confirmed Carvedilol 3.125 mg PO BID 08/06/15 03/13/17 Cetirizine HCl [Zyrtec] 10 mg PO DAILY 08/06/15 03/13/17 Ferrous Sulfate 325 mg PO BID 08/06/15 03/13/17 Rosuvastatin [Crestor] 40 mg PO HS 08/06/15 03/13/17 Albuterol Sulfate [Ventolin Hfa] 2 puff IH Q6H PRN 11/29/15 03/13/17 Pantoprazole Sodium [Protonix] 40 mg PO DAILY 11/29/15 03/13/17 Cholecalciferol (D-3) [Vitamin D] 1,000 unit PO DAILY 03/13/17 03/13/17 Losartan [Cozaar] 25 mg PO DAILY 03/13/17 03/13/17 MetroNIDAZOLE [Rosadan] 1 appl TP BID 03/13/17 03/13/17 Tiotropium [Spiriva] 18 mcg IH DAILY 03/13/17 03/13/17 Previous Rx's Medication Instructions Recorded Nystatin POWDER [Nystop] 1 appl TP BID #1 bottle 12/02/15 Acetaminophen [Tylenol] 650 mg PO Q6HR PRN #0 tablet 03/14/17 Heparin 5,000 unit SQ Q8HR vial 03/14/17 Lidocaine Patch [Lidoderm 5% patch] 2 each TP DAILY adh..patch 03/14/17 Gabapentin [Neurontin] 300 mg PO TID #90 capsule 03/15/17 OxyCODONE/APAP 5/325 [Percocet 1 tab PO TID PRN #30 tablet 03/15/17 5/325 MG] Allergies Allergy/AdvReac Type Severity Reaction Status Date / Time No Known Allergies Allergy Verified 08/06/15 17:18 Past Medical History - Past Medical History Medical history: Reports: asthma, COPD, diabetes, hyperlipidemia, hypertension, renal disease, other Surgical history: Reports: non-contributory Psychiatric history: Reports: no psych history [employer]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 - Social History Smoking Status: Current every day smoker Smokeless Tobacco Status: No Alcohol use: Reports: none Drug use: Reports: none Physical Exam - General Limitations: no limitations General appearance: alert - Head Head exam: atraumatic, normocephalic, normal inspection - Eye Eye exam: Present: normal appearance, PERRL, EOMI - ENT ENT exam: normal exam, normal oropharynx, mucous membranes moist - Neck Neck exam: Present: normal inspection, full ROM, trachea midline - Chest Chest inspection: Present: normal inspection, symmetric chest wall rise - Respiratory Respiratory exam: Present: wheezes, prolonged expiratory phase - Cardiovascular Cardiovascular exam: Present: regular rate, normal rhythm, normal heart sounds - Abdominal Exam Abdominal exam: Present: soft, Non-Tender. Absent: tenderness, distention, guarding, rebound, rigidity - Extremities Exam Extremities exam: Present: normal inspection, full ROM. Absent: tenderness, pedal edema - Expanded Lower Extremity Exam Gait: observed and normal - Back Exam Back exam: Present: normal inspection, full ROM. Absent: tenderness - Neurological Exam Neurological exam: Present: alert, oriented X3 - Psychiatric Psychiatric exam: Present: normal affect, normal mood - Skin Skin exam: Present: warm, dry, intact, normal color Course Vital Signs Temperature 100.3 F H 11/08/17 21:08 Pulse Rate 93 11/08/17 21:08 Respiratory Rate 22 11/08/17 21:08 Blood Pressure 116/74 11/08/17 21:08 O2 Sat by Pulse Oximetry 85 11/08/17 21:08 Temperature 100.3 F H 11/08/17 21:08 Pulse Rate 86 11/08/17 21:53 Respiratory Rate 20 11/08/17 21:53 Blood Pressure 108/71 11/08/17 21:53 O2 Sat by Pulse Oximetry 89 11/08/17 21:53 Oxygen Delivery Oxygen Delivery Nasal Cannula Shortness of Breath/Dyspnea - Lab Data Result diagrams: 11/08/17 21:57 11/08/17 21:57 Lab Results 11/08/17 11/08/17 11/08/17 Range/Units 21:57 21:57 21:57 WBC 8.7 (4.3-11.1) K/mcL RBC 4.74 (3.82-4.97) M/mcL Hgb 13.4 (11.5-15.4) g/dL Hct 42.2 (35.3-44.9) % MCV 89.0 (83.0-100.0) fL MCH 28.3 (28.0-33.3) pg MCHC 31.8 (31.6-35.5) g/dL RDW 13.8 (11.5-14.5) % Plt Count 245 (140-400) K/mcL MPV 10.6 (9.4-12.4) fL Immature Gran % 0.3 (0-4) % Seg Neutrophils % 81.6 % Lymphocytes % 9.5 % Monocytes % 8.1 % Eosinophils % 0.2 % Basophils % 0.3 % Neutrophils # 7.1 (1.6-8.9) K/mcL Lymphocytes # 0.8 (0.6-4.6) K/mcL Monocytes # 0.7 (0.0-1.3) K/mcL Eosinophils # 0.0 (0.0-0.6) K/mcL Basophils # 0.0 (0.0-0.2) K/mcL Sodium 132 L (136-145) mEq/L Potassium 4.0 (3.5-5.1) mEq/L Chloride 102 (98-107) mEq/L Carbon Dioxide 19 L (23-29) mEq/L BUN 23 H (6-20) mg/dL Creatinine 2.38 H (0.60-1.20) mg/dL Est GFR ( Amer) 26 L (> 60) Est GFR (Non-Af Amer) 21 L (> 60) BUN/Creatinine Ratio 10 (6-26) Glucose 166 H (70-105) mg/dL Calculated Osmolality 281 (280-300) Lactic Acid 1.2 (0.5-2.2) mmol/L Calcium 9.3 (8.6-10.3) mg/dL Troponin I (< 0.04) ng/mL B-Natriuretic Peptide (Less than 100) pg/mL 11/08/17 11/08/17 Range/Units 21:57 21:57 WBC (4.3-11.1) K/mcL RBC (3.82-4.97) M/mcL Hgb (11.5-15.4) g/dL Hct (35.3-44.9) % MCV (83.0-100.0) fL MCH (28.0-33.3) pg MCHC (31.6-35.5) g/dL RDW (11.5-14.5) % Plt Count (140-400) K/mcL MPV (9.4-12.4) fL Immature Gran % (0-4) % Seg Neutrophils % % Lymphocytes % % Monocytes % % Eosinophils % % Basophils % % Neutrophils # (1.6-8.9) K/mcL Lymphocytes # (0.6-4.6) K/mcL Monocytes # (0.0-1.3) K/mcL Eosinophils # (0.0-0.6) K/mcL Basophils # (0.0-0.2) K/mcL Sodium (136-145) mEq/L Potassium (3.5-5.1) mEq/L Chloride (98-107) mEq/L Carbon Dioxide (23-29) mEq/L BUN (6-20) mg/dL Creatinine (0.60-1.20) mg/dL Est GFR ( Amer) (> 60) Est GFR (Non-Af Amer) (> 60) BUN/Creatinine Ratio (6-26) Glucose (70-105) mg/dL Calculated Osmolality (280-300) Lactic Acid (0.5-2.2) mmol/L Calcium (8.6-10.3) mg/dL Troponin I < 0.03 (< 0.04) ng/mL B-Natriuretic Peptide 55 (Less than 100) pg/mL S.B.A.R. - S.B.A.R. Recommendation: Recommendation based on pending studies, treatments, or consults Monica Report Given to: Ashley Anderson Repor Time: 22:51
[2017-11-08] MEDS ORDERED: Ipratropium/Albuterol Neb 3 ML IH ONE ×2 (22:53→23:24)
[2017-11-08] MEDS ORDERED: 0.9 % Sodium Chloride 1,000 ML IVC ONE (22:56)
[2017-11-08] MEDS ORDERED: methylPREDNISolone 125 MG/2 ML VIAL IVP ONE (23:24)
[2017-11-08] MEDS ORDERED: Azithromycin 500 MG in D5% in Water 250 ML IVPB ONE (23:25)
--- NOTE | 2017-11-08 23:26 | Emergency Department Note ---
Disposition Clinical Impression: Acute exacerbation of chronic obstructive airways disease, Acute renal injury Community acquired pneumonia Qualifiers: Laterality: left Lung location: lower lobe of lung Qualified Code(s): J18.1 - Lobar pneumonia, unspecified organism Disposition: Admitted As Inpatient Condition: Fair Referrals: Shalonda Crowell MD [Primary Care Provider] - Forms: ED Satisfaction Letter SOB HPI - General Chief Complaint: ED Shortness of Breath/Dyspnea Stated Complaint: "MOHAN/Dizzy/Headache" Time Seen by Provider: 11/08/17 21:36 Source: patient Mode of arrival: ambulatory Limitations: no limitations Nursing Notes Reviewed: Yes Vital Signs Reviewed: Yes - History of Present Illness Severity: moderate Improves with: nothing Associated symptoms: Reports: fever, cough, wheezing Treatment prior to arrival: none - Related Data Home Medications Medication Instructions Recorded Confirmed Carvedilol 3.125 mg PO BID 08/06/15 03/13/17 Cetirizine HCl [Zyrtec] 10 mg PO DAILY 08/06/15 03/13/17 Ferrous Sulfate 325 mg PO BID 08/06/15 03/13/17 Rosuvastatin [Crestor] 40 mg PO HS 08/06/15 03/13/17 Albuterol Sulfate [Ventolin Hfa] 2 puff IH Q6H PRN 11/29/15 03/13/17 Pantoprazole Sodium [Protonix] 40 mg PO DAILY 11/29/15 03/13/17 Cholecalciferol (D-3) [Vitamin D] 1,000 unit PO DAILY 03/13/17 03/13/17 Losartan [Cozaar] 25 mg PO DAILY 03/13/17 03/13/17 MetroNIDAZOLE [Rosadan] 1 appl TP BID 03/13/17 03/13/17 Tiotropium [Spiriva] 18 mcg IH DAILY 03/13/17 03/13/17 Previous Rx's Medication Instructions Recorded Nystatin POWDER [Nystop] 1 appl TP BID #1 bottle 12/02/15 Acetaminophen [Tylenol] 650 mg PO Q6HR PRN #0 tablet 03/14/17 Heparin 5,000 unit SQ Q8HR vial 03/14/17 Lidocaine Patch [Lidoderm 5% patch] 2 each TP DAILY adh..patch 03/14/17 Gabapentin [Neurontin] 300 mg PO TID #90 capsule 03/15/17 OxyCODONE/APAP 5/325 [Percocet 1 tab PO TID PRN #30 tablet 03/15/17 5/325 MG] Allergies Allergy/AdvReac Type Severity Reaction Status Date / Time No Known Allergies Allergy Verified 08/06/15 17:18 Past Medical History - Past Medical History Medical history: Reports: asthma, COPD, diabetes, hyperlipidemia, hypertension, renal disease, other Surgical history: Reports: non-contributory Psychiatric history: Reports: no psych history DUCT LAYER history: Reports: no DUCT LAYER history - Social History Smoking Status: Current every day smoker Smokeless Tobacco Status: No Alcohol use: Reports: none Drug use: Reports: none Physical Exam - General Limitations: no limitations General appearance: alert Course Course Narrative: Case was discussed with Dr. Matthews. Report received is that the patient is waiting on a CAT scan of the chest to further evaluate possible mass versus pneumonia. Vitals are stable. The patient does have history of COPD and two weeks ago was diagnosed with "a viral bronchitis and URI". She has had several days of dyspnea and per family is getting worse. She will most likely require admission. Another duo neb ordered. labs show АНДРЕЙ - Cr 2.4; baseline is usually 1.2-1.7. Thus, CT was done without contrast. CT read by rad as airspace disease / infiltrate and multiple nodes, likely reactive. ABX ordered. - Reevaluation(s) Reevaluation #1: "Feeling a little better", sats improved. Still requiring O2 Time: 00:10 - Consultations Consultation #1: CAse discussed with the hospitalist. He has accepted her for admission. Time: 00:15 Vital Signs Temperature 100.3 F H 11/08/17 21:08 Pulse Rate 93 11/08/17 21:08 Respiratory Rate 22 11/08/17 21:08 Blood Pressure 116/74 11/08/17 21:08 O2 Sat by Pulse Oximetry 85 11/08/17 21:08 Temperature 100.3 F H 11/08/17 21:08 Pulse Rate 86 11/08/17 21:53 Respiratory Rate 20 11/08/17 21:53 Blood Pressure 108/71 11/08/17 21:53 O2 Sat by Pulse Oximetry 89 11/08/17 21:53 Oxygen Delivery Oxygen Delivery Nasal Cannula Shortness of Breath/Dyspnea - Lab Data Result diagrams: 11/08/17 21:57 11/08/17 21:57 Lab Results 11/08/17 11/08/17 11/08/17 Range/Units 21:57 21:57 21:57 WBC 8.7 (4.3-11.1) K/mcL RBC 4.74 (3.82-4.97) M/mcL Hgb 13.4 (11.5-15.4) g/dL Hct 42.2 (35.3-44.9) % MCV 89.0 (83.0-100.0) fL MCH 28.3 (28.0-33.3) pg MCHC 31.8 (31.6-35.5) g/dL RDW 13.8 (11.5-14.5) % Plt Count 245 (140-400) K/mcL MPV 10.6 (9.4-12.4) fL Immature Gran % 0.3 (0-4) % Seg Neutrophils % 81.6 % Lymphocytes % 9.5 % Monocytes % 8.1 % Eosinophils % 0.2 % Basophils % 0.3 % Neutrophils # 7.1 (1.6-8.9) K/mcL Lymphocytes # 0.8 (0.6-4.6) K/mcL Monocytes # 0.7 (0.0-1.3) K/mcL Eosinophils # 0.0 (0.0-0.6) K/mcL Basophils # 0.0 (0.0-0.2) K/mcL Sodium 132 L (136-145) mEq/L Potassium 4.0 (3.5-5.1) mEq/L Chloride 102 (98-107) mEq/L Carbon Dioxide 19 L (23-29) mEq/L BUN 23 H (6-20) mg/dL Creatinine 2.38 H (0.60-1.20) mg/dL Est GFR ( Amer) 26 L (> 60) Est GFR (Non-Af Amer) 21 L (> 60) BUN/Creatinine Ratio 10 (6-26) Glucose 166 H (70-105) mg/dL Calculated Osmolality 281 (280-300) Lactic Acid 1.2 (0.5-2.2) mmol/L Calcium 9.3 (8.6-10.3) mg/dL Troponin I (< 0.04) ng/mL B-Natriuretic Peptide (Less than 100) pg/mL 11/08/17 11/08/17 Range/Units 21:57 21:57 WBC (4.3-11.1) K/mcL RBC (3.82-4.97) M/mcL Hgb (11.5-15.4) g/dL Hct (35.3-44.9) % MCV (83.0-100.0) fL MCH (28.0-33.3) pg MCHC (31.6-35.5) g/dL RDW (11.5-14.5) % Plt Count (140-400) K/mcL MPV (9.4-12.4) fL Immature Gran % (0-4) % Seg Neutrophils % % Lymphocytes % % Monocytes % % Eosinophils % % Basophils % % Neutrophils # (1.6-8.9) K/mcL Lymphocytes # (0.6-4.6) K/mcL Monocytes # (0.0-1.3) K/mcL Eosinophils # (0.0-0.6) K/mcL Basophils # (0.0-0.2) K/mcL Sodium (136-145) mEq/L Potassium (3.5-5.1) mEq/L Chloride (98-107) mEq/L Carbon Dioxide (23-29) mEq/L BUN (6-20) mg/dL Creatinine (0.60-1.20) mg/dL Est GFR ( Amer) (> 60) Est GFR (Non-Af Amer) (> 60) BUN/Creatinine Ratio (6-26) Glucose (70-105) mg/dL Calculated Osmolality (280-300) Lactic Acid (0.5-2.2) mmol/L Calcium (8.6-10.3) mg/dL Troponin I < 0.03 (< 0.04) ng/mL B-Natriuretic Peptide 55 (Less than 100) pg/mL
[2017-11-09] MEDS ORDERED: Acetaminophen 325 MG TABLET PO PRN (01:59)
[2017-11-09] MEDS ORDERED: *HR* OxyCODONE/APAP 5/325 TABLET PO PRN (01:59)
--- NOTE | 2017-11-09 02:15 | Internal Med History&Physical ---
Date of Encounter: 11/09/17 Time of Encounter: 02:09 Assessment and Plan (1) Acute exacerbation of chronic obstructive airways disease Current visit: Yes Status: Acute Pt with Hx of COPD not on home O2 exacerbation likely 2/2 to PNA on arrival to ED patient sating at 85 started on 2L NC Patient given azithromycin and ceftriaxone in ED Patient given Duoneb breathing treatment and 125mg IV solumedrol. Plan: continue abx standing Q4H duonebs 60mg IV solumedrol Q12H restart hoem spiriva (2) Community acquired pneumonia Current visit: Yes Status: Acute Pt with suspected Pneumonia on CXR and CT chest. Patient started on Ceftriaxone and Azithromycin in the ED. blood cultures ordered and pending LA 1.2 WBC 8.7 Plan: continue abx. continue to monitor Qualifiers: Laterality: left Lung location: lower lobe of lung Qualified Code(s): J18.1 - Lobar pneumonia, unspecified organism (3) Sepsis Current visit: Yes Status: Acute Pt met sepsis criteria based on temp 100.3, RR 22, HR 93 PNA on imaging Likely 2/2 PNA LA 1.2, WBC 8.7 Blood cultures drawn and pending. patient given NS IV bolus Patient started on Ceftriaxone and azithromycin. Plan: continue to monitor continue Abx. continue IV hydration. Qualifiers: Sepsis type: sepsis due to unspecified organism Qualified Code(s): A41.9 - Sepsis, unspecified organism (4) DM2 (diabetes mellitus, type 2) Current visit: No Status: Chronic Patient denies hx of DM, but appears on her in patient and out patient records. glucose 166 on admission Plan: diabetic diet, SSI, accuchecks will check hgb A1C continue home neurontin likely for diabetic neuropathy 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 mellitus fpc insulin use: without fpc use Chronic kidney disease stage: stage 3 (moderate) Qualified Code(s): E11.22 - Type 2 diabetes mellitus with diabetic chronic kidney disease; N18.3 - Chronic kidney disease, stage 3 ( moderate); N18.3 - Chronic kidney disease, stage 3 (moderate) (5) Acute worsening of stage 3 chronic kidney disease Current visit: Yes Status: Acute Pt with DIANA on CKD stage III current Cr 2.38 baseline 1.2-1.7 likely secondary to dehydration Plan: continue IV fluid hydration avoid nephrotoxic agents (6) Morbid obesity with BMI of 50.0-59.9, adult Current visit: No Status: Chronic (7) DVT prophylaxis Current visit: Yes Status: Acute Started on Sub Q heparin q8H due to DIANA on CKD Internal Medicine - H&P: HPI Chief complaint: Shortness of Breath Admitted From: Emergency Dept Plans for Post Hospital Care: Home History of present illness: Ms. Alexander is a 52 year old female c PMHx of COPD not on home O2, CKD, HTN, HLD, DM reports to the [facility] ED c/o several days of progressively worsening SOB. Patient reports productive cough and change in sputum character, chest congestion. Patient denies fever, chest pain, abd pain, Nausea, vomtiing, diarrhea. Patient was worked up in the ED with CXR, CT chest, and lab work. Patient was found to have a pneumonia on imagining. Blood work was noteable for WBC 8.7, Na 132, bicarb 19, BUN 23, Cr 2.38(baseline 1.2-1.7), Glucose 166, Lactic acid 1.2 trop <0.03, BNP 55. Patient was started on ceftriaxone and azithromycin. She received 125 mg solumedrol and given duoneb breathing treatment. Patient was given a bolus of NS. Past Med Surg Social Fam HX - Past Medical History Medical history: asthma, COPD, coronary artery disease, diabetes, hyperlipidemia , hypertension, renal disease, other Psychiatric history: no psych history - Past Surgical History Surgical History: non-contributory - Social History Smoking Status: Current every day smoker Packs per day: 1 Smokeless Tobacco Status: No Alcohol use: none Drug use: none - Family History Mother Adopted: No Family Member Ethnicity: Non- Living Status: Hx Family Cardiac Disorders: Yes (SISTER) Hx Family Respiratory Disorders: Yes (DAD) Hx Family Cancer: No Hx Family GI Disorders: No Hx Family Endocrine Disorder: Yes (MOTHER) Hx Family Neuromuscular Disorders: No Hx Family Neurologic Disorders: No Hx Family HEENT Disorders: No Hx Family Autoimmune Disorders: No Father Living Status: Hx Family Cancer: Yes (Lung CA) Internal Medicine - H&P: Meds Carvedilol 3.125 mg PO BID 08/06/15 [History] Cetirizine HCl [Zyrtec] 10 mg PO DAILY 08/06/15 [History] Ferrous Sulfate 325 mg PO BID 08/06/15 [History] Rosuvastatin [Crestor] 40 mg PO HS 08/06/15 [History] Albuterol Sulfate [Ventolin Hfa] 2 puff IH Q6H PRN 11/29/15 [History] Pantoprazole Sodium [Protonix] 40 mg PO DAILY 11/29/15 [History] Nystatin POWDER [Nystop] 1 appl TP BID #1 bottle 12/02/15 [Rx] Cholecalciferol (D-3) [Vitamin D] 1,000 unit PO DAILY 03/13/17 [History] MetroNIDAZOLE [Rosadan] 1 appl TP BID 03/13/17 [History] Tiotropium [Spiriva] 18 mcg IH DAILY 03/13/17 [History] Acetaminophen [Tylenol] 650 mg PO Q6HR PRN #0 tablet 03/14/17 [Rx] Gabapentin [Neurontin] 300 mg PO TID #90 capsule 03/15/17 [Rx] OxyCODONE/APAP 5/325 [Percocet 5/325 MG] 1 tab PO TID PRN #30 tablet 03/15/17 [ Rx] 3 Allergy/AdvReac Type Severity Reaction Status Date / Time No Known Allergies Allergy Verified 08/06/15 17:18 All Systems PM: A 10-system review of systems was performed and is negative for pertinent findings except as documented above in the HPI. - Constitutional Vitals: Temp Pulse Resp BP Pulse Ox 98.4 F 63 14 115/68 88 11/09/17 01:46 11/09/17 01:46 11/09/17 01:46 11/09/17 01:46 11/09/17 01:46 General appearance: Present: A&O X 3, morbidly obese, no acute distress, answers questions appropriately - Head Head exam: Present: atraumatic, normocephalic - Eye Eye exam: Present: EOMI, PERRL, conjuntiva pink, sclera anicteric Pupils: Present: PERRL - Neck Neck exam general surgery: Present: supple, trachea midline - Respiratory Respiratory exam: Present: decreased breath sounds, wheezes. Absent: accessory muscle use, CTAB, rales, rhonchi - Cardiovascular Cardiovascular exam: Present: RRR, +S1, +S2. Absent: diastolic murmur, gallop, rubs, systolic murmur - GI/Abdominal GI/Abdominal exam: Present: normal bowel sounds, soft, no peritoneal signs. Absent: distended, tenderness - Extremities Exam Extremities exam: Present: warm, radial pulses palpable and symmetrical. Absent : calf tenderness, cyanotic, pedal edema - Neurological Exam Neurological exam: Present: alert, CN II-XII intact, oriented X3, no focal deficits. Absent: facial droop, speech deficit - Skin Skin exam: Present: dry, intact Internal Med - H&P Results - Labs CBC & Chem 7: 11/08/17 21:57 11/08/17 21:57
[2017-11-09] MEDS ORDERED: *HR* Dextrose 50 % in Water (Syg) 50 ML SYRINGE IVP PRN (02:25)
[2017-11-09] MEDS ORDERED: D5% in Water 1,000 ML IVC PRN (02:25)
[2017-11-09] MEDS ORDERED: Dextrose Gel 15 GM/37.5 ML TUBE PO PRN ×2 (02:25)
[2017-11-09] MEDS: Gabapentin 300 MG CAPSULE PO SCH ×4 (02:48→21:30)
[2017-11-09] MEDS ORDERED: cefTRIAXone 1,000 MG in Water for inj. (sterile) 20 ML 10 ML IVPB ONE (03:00)
[2017-11-09] MEDS: 0.9 % Sodium Chloride 1,000 ML IVC SCH ×3 (03:14→23:40)
[2017-11-09 04:47] LABS: Basophils % 0.3 %; Eosinophils % 0.1 %; Hematocrit 39.9 % (35.3-44.9); Hemoglobin 12.6 g/dL (11.5-15.4); Immature Granulocytes % 0.4 % (0-4); Lymphocytes # 0.5 K/mcL (0.6-4.6); Lymphocytes % 6.6 %; Mean Corpuscular HGB Conc 31.6 g/dL (31.6-35.5); Mean Corpuscular Hemoglobin 28.4 pg (28.0-33.3); Mean Corpuscular Volume 89.9 fL (83.0-100.0); Mean Platelet Volume 10.8 fL (9.4-12.4); Monocytes # 0.3 K/mcL (0.0-1.3); Monocytes % 3.2 %; Neutrophils # 7.1 K/mcL (1.6-8.9); Nucleated Red Blood Cells 0.5 /100 WBC (0); Platelet Count 190 K/mcL (140-400); Red Blood Count 4.44 M/mcL (3.82-4.97); Red Cell Distribution Width 13.9 % (11.5-14.5); Segmented Neutrophils % 89.4 %
[2017-11-09 05:02] LABS: Hemoglobin A1C 6.2 %
[2017-11-09 05:03] LABS: Calcium 8.9 mg/dL (8.6-10.3); Potassium 4.2 mEq/L (3.5-5.1)
[2017-11-09] MEDS: Ipratropium/Albuterol Neb 3 ML IH SCH ×6 (05:18→23:45)
[2017-11-09] MEDS ORDERED: *HR* Heparin 5,000 UNIT/ML VIAL SQ SCH (06:00)
[2017-11-09] MEDS: methylPREDNISolone 125 MG/2 ML VIAL IVP SCH ×2 (06:29→16:32)
[2017-11-09] MEDS: Tiotropium 18 MCG inhalation IH SCH (07:30)
--- NOTE | 2017-11-09 10:08 | Event Note ---
<Lukasz Garcia - Last Filed: 11/09/17 13:12> Date of Encounter: 11/09/17 Time of Encounter: 09:37 Ms. Alexander is a 52-year-old female that was admitted to the hospital for acute exacerbation of COPD likely secondary to pneumonia. Patient states that she is feeling better but still not back to her baseline. Patient denies any home oxygen use and is requiring 2.5 L here in the hospital. Patient was started on azithromycin and ceftriaxone for antibiotic therapy to likely pneumonia. Patient is also receiving duo nebs and steroids here in the hospital. Due the patient being admitted after midnight and being seen this morning by the night team. General: Patient is resting in bed comfortably in no acute distress Head: normocephalic atraumatic Neck: Full range of motion, trachea is midline, normal inspection Cardiac: Regular rate and rhythm, no murmurs Lungs: Patient had Rales in the left base and wheezing bilaterally Abdomen soft nontender no masses palpated Extremities there is no edema present in the lower extremities. Neuro: Patient is alert, no focal neurologic deficits, no facial droop Psych: Normal mood and affect Skin: Dry, warm and intact. <Raymundo Carrasquillo - Last Filed: 11/09/17 18:41> Date of Encounter: 11/09/17 Not seen by me today. Dr. Park patient.
[2017-11-09] MEDS: Insulin LISPRO 300 UNITS/3 ML VIAL SQ SCH ×3 (10:34→16:32)
[2017-11-09] MEDS ORDERED: cefTRIAXone 2,000 MG in Water for inj. (sterile) 20 ML IVP SCH ×2 (12:00→12:30)
--- NOTE | 2017-11-09 15:29 | Event Note ---
Date of Encounter: 11/09/17 Time of Encounter: 09:45 52-year-old female with history of COPD, diabetes, chronic kidney disease, hypertension, tobacco abuse, admitted with worsening cough and shortness of breath. Seen and examined at bedside. Slow but appropriate responses. Refuses home oxygen even if she qualifies at discharge. Is not on diabetic medications at home. Chest-S1, S2 heard. Lungs with coarse breath sounds bilaterally. - Bilateral pneumonia-chest x-ray reviewed, shows small infiltrates bilaterally. Follow-up blood cultures. Continue IV antibiotics-azithromycin and Rocephin. Supportive care and supplemental oxygen. - Acute hypoxic respiratory failure - Acute exacerbation of COPD-active smoker, continues to smoke at least 1 pack per day. Not motivated to quit at this time. Continue bronchodilators, IV steroids, IV antibiotics, supplemental oxygen. Requiring 3.5 L oxygen per minute at this time. However, refuses home oxygen. - Diabetes mellitus-noted to have steroid-induced hyperglycemia. Continue Accu- Chek blood glucose monitoring with basal bolus insulin regimen. Diabetic diet.
[2017-11-09] MEDS: *HR* Heparin 5,000 UNIT/ML VIAL SQ SCH ×2 (16:31→23:40)
[2017-11-09] MEDS ORDERED: Azithromycin 500 MG in D5% in Water 250 ML IVPB SCH (18:00)
[2017-11-09] MEDS ORDERED: Insulin LISPRO 300 UNITS/3 ML VIAL SQ SCH ×2 (21:00)
[2017-11-09] MEDS: Insulin DETEMIR 100 UNIT/ML X5UNITS SQ SCH (21:30)
[2017-11-10] MEDS: Ipratropium/Albuterol Neb 3 ML IH SCH ×4 (04:12→14:51)
[2017-11-10] MEDS: methylPREDNISolone 125 MG/2 ML VIAL IVP SCH (06:11)
[2017-11-10 06:17] LABS: Basophils % 0.1 %; Hematocrit 39.8 % (35.3-44.9); Hemoglobin 12.6 g/dL (11.5-15.4); Immature Granulocytes % 0.5 % (0-4); Lymphocytes # 0.6 K/mcL (0.6-4.6); Lymphocytes % 5.8 %; Mean Corpuscular HGB Conc 31.7 g/dL (31.6-35.5); Mean Corpuscular Hemoglobin 28.2 pg (28.0-33.3); Mean Platelet Volume 10.8 fL (9.4-12.4); Monocytes # 0.6 K/mcL (0.0-1.3); Monocytes % 5.8 %; Neutrophils # 8.4 K/mcL (1.6-8.9); Platelet Count 218 K/mcL (140-400); Red Blood Count 4.47 M/mcL (3.82-4.97); Red Cell Distribution Width 13.8 % (11.5-14.5); Segmented Neutrophils % 87.8 %
[2017-11-10 06:37] LABS: Calcium 8.9 mg/dL (8.6-10.3); Potassium 4.1 mEq/L (3.5-5.1)
[2017-11-10] MEDS: Tiotropium 18 MCG inhalation IH SCH (07:30)
[2017-11-10] MEDS: Insulin LISPRO 300 UNITS/3 ML VIAL SQ SCH ×4 (08:22→16:50)
[2017-11-10] MEDS: Gabapentin 300 MG CAPSULE PO SCH (08:52)
[2017-11-10] MEDS: Insulin DETEMIR 100 UNIT/ML X5UNITS SQ SCH (08:53)
[2017-11-10] MEDS: *HR* Heparin 5,000 UNIT/ML VIAL SQ SCH ×2 (08:54→16:51)
[2017-11-10] MEDS: 0.9 % Sodium Chloride 1,000 ML IVC SCH (10:07)
[2017-11-10 11:02] LABS: Uric Acid 6.2 mg/dL (2.3-7.6)
--- NOTE | 2017-11-10 11:13 | Nephrology Consult Note ---
Date of Encounter: 11/10/17 Time of Encounter: 11:01 Assessment and Plan (1) DIANA (acute kidney injury) Current Visit: Yes Status: Acute Work up to include: UA, urine culture, urine sodium, urine creatinine, urine eosinophils, CPK, serum uric acid, renal ultrasound, protein/creatinine ratio Agree with IV fluids Push p.o fluids Baseline GFR 45, Scr 1.30 Currently GFR 15, Scr 3.23 Strict I/Os Avoid nephrotoxins if possible (2) CKD (chronic kidney disease) stage 3, GFR 30-59 ml/min Current Visit: No Status: Chronic Will proceed with CKD workup since it has been 2 1/2 years since she seen a airport security screener PTH, C3 & C4 complement, Vitamin D 25-OH, MICAH, protein electrophoresis, immunofixation urine Baseline kidney function Scr 1.30 GFR 45 Avoid nephrotoxins if possible (3) Acute exacerbation of chronic obstructive airways disease Current Visit: Yes Status: Acute per primary team (4) DM2 (diabetes mellitus, type 2) Current Visit: No Status: Chronic per primary team 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 mellitus buttermaker continuous churn insulin use: without buttermaker continuous churn use Chronic kidney disease stage: stage 3 (moderate) Qualified Code(s): E11.22 - Type 2 diabetes mellitus with diabetic chronic kidney disease; N18.3 - Chronic kidney disease, stage 3 ( moderate); N18.3 - Chronic kidney disease, stage 3 (moderate) History of Present Illness - Reason for Consult Consult date: 11/10/17 - Chief Complaint pneumonia, DIANA on CKD - History of Present Illness Patient was originally placed on Dr Verdin service but his COLDFUSION Michelle informed me this patient has had multiple labs by Dr Horne so she should be on our service. ECW shows patient seen Dr Horne on 04/23/15 and then missed/ no showed future appointments. Ms. Alexander is a 52 year old female with a PMH of COPD, CKD, HTN, HLD, DM who was admitted by ED for c/o several days of progressively worsening SOB. Patient reports productive cough and change in sputum character, chest congestion. Patient was found to have a pneumonia on imagining. SCr 2.38 at admission ( baseline 1.30) GFR 21 (Baseline 45); patient was started on ceftriaxone and azithromycin. Patient states she has never seen a kidney doctor-which is incorrect, seen Dr Horne in April 2015; states her PCP wanted her to go see a kidney doctor recently but was too sick to make the appointment. Patient is a poor historian , lives with her sister, denies having HTN but this is listed on her [facility] list. Denies any family history of kidney disease, no heavy usage of NSAIDS, no recent dye exposure. Past Med Surg Social Fam HX - Past Medical History Medical history: asthma, COPD, coronary artery disease, diabetes, hyperlipidemia , hypertension, renal disease, other Psychiatric history: no psych history - Past Surgical History Surgical History: non-contributory - Social History Smoking Status: Current every day smoker Packs per day: 1 Smokeless Tobacco Status: No Alcohol use: none Drug use: none - Family History Mother Adopted: No Family Member Ethnicity: Non- Living Status: Hx Family Cardiac Disorders: Yes (SISTER) Hx Family Respiratory Disorders: Yes (DAD) Hx Family Cancer: No Hx Family GI Disorders: No Hx Family Endocrine Disorder: Yes (MOTHER) Hx Family Neuromuscular Disorders: No Hx Family Neurologic Disorders: No Hx Family HEENT Disorders: No Hx Family Autoimmune Disorders: No Father Living Status: Hx Family Cancer: Yes (Lung CA) Medications and Allergies Carvedilol 3.125 mg PO BID 08/06/15 [History] Ferrous Sulfate 325 mg PO BID 08/06/15 [History] Rosuvastatin [Crestor] 40 mg PO HS 08/06/15 [History] Albuterol Sulfate [Ventolin Hfa] 2 puff IH Q6H PRN 11/29/15 [History] Pantoprazole Sodium [Protonix] 40 mg PO DAILY 11/29/15 [History] Tiotropium [Spiriva] 18 mcg IH DAILY 03/13/17 [History] Gabapentin [Neurontin] 300 mg PO TID #90 capsule 03/15/17 [Rx] OxyCODONE/APAP 5/325 [Percocet 5/325 MG] 1 tab PO TID PRN #30 tablet 03/15/17 [ Rx] Ergocalciferol (VITAMIN D2) [Vitamin D2] 50,000 unit PO QWEEK 11/09/17 [History] Levocetirizine Dihydrochloride [Levocetirizine Dihydrochloride] 5 mg PO DAILY [History] Losartan [Cozaar] 25 mg PO DAILY 11/09/17 [History] 3 Allergy/AdvReac Type Severity Reaction Status Date / Time No Known Allergies Allergy Verified 08/06/15 17:18 Review of Systems All Systems: reviewed and no additional remarkable complaints except as stated Constitutional: malaise, no chills, no fever(s) Cardiovascular: dyspnea, dyspnea on exertion, no chest pain, no leg edema Respiratory: dyspnea, dyspnea on exertion Gastrointestinal: no constipation, no vomiting Neurological: no behavioral changes Exam - Vital Signs Vital signs: Initial Vital Signs Temp Pulse Resp BP Pulse Ox 100.3 F H 93 22 116/74 85 11/08/17 21:08 11/08/17 21:08 11/08/17 21:08 11/08/17 21:08 11/08/17 21:08 Vital Signs - Last 8 Hours Temp Pulse Resp BP Pulse Ox 11/10/17 10:19 97.8 F 56 18 129/77 94 11/10/17 08:25 97.8 F 52 16 95 11/10/17 07:31 16 95 11/10/17 06:55 97.8 F 52 18 130/79 96 11/10/17 05:10 97.5 F L 51 16 126/79 96 11/10/17 04:13 16 94 Intake and Output 11/09/17 11/10/17 11/10/17 23:59 07:59 15:59 Intake Total 1490 / 1490 0 / 0 1300 / 1300 Output Total 100 / 100 600 / 600 600 / 600 Balance 1390 / 1390 -600 / -600 700 / 700 Intake: IV Fluids 1250 / 1250 1000 / 1000 0.9 % Sodium Chloride 1,000 ML 1000 / 1000 1000 / 1000 @ 100 mls/hr IVC .Q10H [facility] Rx#: [id number] Zithromax 500 mg In Dextrose 5% 250 / 250 250 ML @ 252 mls/hr IVPB Q24H [facility] Rx#:[id number] Oral 240 / 240 0 / 0 300 / 300 Output: Urine 100 / 100 600 / 600 600 / 600 Other: Meal Dinner Breakfast Percent of Meal Consumed 100% 100% Weight 140.568 kg Blood Glucose* 379 187 Patient Weight 11/10/17 23:59 Weight 140.568 kg - General Appearance General appearance: obese EENT: ATNC, mucous membranes moist, hearing intact, vision intact Neck: supple Respiratory: wheezing, rhonchi Cardiology: no edema, normal S1, normal S2 Gastrointestinal: no tenderness, no guarding, obese Integumentary: warm and dry Neurologic: alert and oriented x3 Psychiatric: mood/affect appropriate, cooperative Results - Lab Results 11/10/17 04:12 11/10/17 04:12 Most recent lab results Calcium 8.9 mg/dL (8.6-10.3) 11/10/17 04:12 Magnesium 2.0 mg/dL (1.6-2.6) 11/10/17 04:12 Consult Discharge Plan - Plan Referrals: Shalonda Crowell MD [Primary Care Provider] -
[2017-11-10] MEDS ORDERED: cefTRIAXone 2,000 MG in Water for inj. (sterile) 20 ML 20 ML IVP SCH (12:30)
[2017-11-10 15:08] VITALS: BP 148/77
[2017-11-10] MEDS ORDERED: Acetaminophen 325 MG TABLET PO PRN (15:20)
[2017-11-10] MEDS ORDERED: *HR* OxyCODONE/APAP 5/325 TABLET PO PRN (15:20)
[2017-11-10 16:12] LABS: Bilirubin,Urine Negative (Negative); Blood,Urine Small (Negative); Clarity,Urine Cloudy (Clear); Color,Urine Yellow (Yellow); Glucose,Urine (UA) 100 mg/dL (Normal); Ketones,Urine Negative (Negative); Leukocyte Esterase,Urine Negative (Negative); Nitrite,Urine Negative (Negative); PH,Urine 5.5 pH Units (5.0-8.0); Protein,Urine 100 mg/dL (Neg-Trace); Urobilinogen,Urine Normal (Normal)
[2017-11-10 16:14] LABS: Bacteria,Urine None Seen per hpf (None-Few); RBC,Urine 0-3 per hpf (0-3); Squamous Epithelial Cell,Urine Many per lpf (None-Few)
--- NOTE | 2017-11-10 16:17 | Electrocardiograph Report ---
[place] [id number] Test Date: 2017-11-08 Pat Name: Ada Alexander Department: 104 Room: 3A16 Gender: F [employer] Assistant Department Head: JOSETTE : 1965 Requested By: Suha Montez Order Number: [id number] Reading MD: Bel Saldivar Measurements Intervals [place] Rate: 84 P: 67 CT: 159 QRS: 4 QRSD: 89 T: 47 QT: 380 QTc: 421 Interpretive Statements SINUS RHYTHM Electronically Signed On 11-10-2017 16:16:29 EST by Bel Saldivar
[2017-11-10 16:26] LABS: Uric Acid 5.7 mg/dL (2.3-7.6)
[2017-11-10 16:28] LABS: Yeast,Urine Few per hpf (None Seen)
--- NOTE | 2017-11-10 16:43 | Internal Med Progress Note ---
Date of Encounter: 11/10/17 Time of Encounter: 10:30 - Assessment and plan (1) Sepsis Current Visit: Yes Status: Acute Assessment and plan: Admitted with low-grade fever, tachycardia and tachypnea. Likely source pneumonia. Currently improving. Continue IV antibiotics, follow-up cultures, IV hydration. Qualifiers: Sepsis type: sepsis due to unspecified organism Qualified Code(s): A41.9 - Sepsis, unspecified organism (2) Community acquired pneumonia Current Visit: Yes Status: Acute Assessment and plan: Imaging studies show bilateral infiltrates. Continue IV Rocephin and azithromycin. Rapid influenza antigen, blood cultures negative. Continue supportive care and supplemental oxygen. Qualifiers: Laterality: unspecified laterality Qualified Code(s): J18.9 - Pneumonia, unspecified organism (3) Acute exacerbation of chronic obstructive airways disease Current Visit: Yes Status: Acute Assessment and plan: Improving slowly. Taper down IV steroids as tolerated. Continue bronchodilators and supplemental oxygen. Patient is not on home oxygen, improving oxygen requirements, now on 2 L/m via nasal cannula, refuses home oxygen at this time. (4) DIANA (acute kidney injury) Current Visit: Yes Status: Acute Assessment and plan: Baseline serum creatinine around 1.2-1.3. Currently worsening, 3.23 today. Noted to have appropriate urine output. Likely related to sepsis, continue IV hydration. Continue to monitor closely. Avoid nephrotoxic agents. Adjust gabapentin dose. Nephrology consulted. Follow-up urine dipstick, urine protein , urine protein creatinine ratio, serum uric acid levels. (5) Acute respiratory failure with hypoxia Current Visit: Yes Status: Acute (6) CAD (coronary artery disease) Current Visit: Yes Status: Chronic Qualifiers: Coronary Disease-Associated Artery/Lesion type: [place] artery [place] vs. transplanted heart: [place] heart Associated angina: without angina Qualified Code(s): I25.10 - Atherosclerotic heart disease of [place] coronary artery without angina pectoris (7) CKD (chronic kidney disease) stage 3, GFR 30-59 ml/min Current Visit: Yes Status: Chronic (8) DM2 (diabetes mellitus, type 2) Current Visit: Yes Status: Chronic Assessment and plan: Blood sugars noted to be well controlled. Continue Accu-Chek blood glucose monitoring with sliding scale insulin as needed. Hemoglobin A1c noted to be 6.2 %. Diabetic diet. 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 mellitus elevating grader operator insulin use: without elevating grader operator use Chronic kidney disease stage: stage 3 (moderate) Qualified Code(s): E11.22 - Type 2 diabetes mellitus with diabetic chronic kidney disease; N18.3 - Chronic kidney disease, stage 3 ( moderate); N18.3 - Chronic kidney disease, stage 3 (moderate) (9) HTN (hypertension) Current Visit: Yes Status: Chronic Qualifiers: Hypertension type: essential hypertension Qualified Code(s): I10 - Essential (primary) hypertension (10) Morbid obesity with BMI of 50.0-59.9, adult Current Visit: Yes Status: Chronic (11) Tobacco abuse Current Visit: Yes Status: Chronic - Subjective Interval history: Feels better; improving shortness of breath, cough, fever/chills; has decent urine output; - Constitutional Vitals: Temp Pulse Resp BP Pulse Ox 98.5 F 60 18 148/77 93 11/10/17 15:05 11/10/17 15:05 11/10/17 15:05 11/10/17 15:05 11/10/17 15:05 General appearance: Present: A&O X 3, morbidly obese, no acute distress, answers questions appropriately - Respiratory Respiratory exam: Present: CTAB (coarse breath sounds B/L). Absent: accessory muscle use, rales, rhonchi, wheezes - Cardiovascular Cardiovascular exam: Present: RRR, +S1, +S2. Absent: diastolic murmur, gallop, rubs, systolic murmur - GI/Abdominal GI/Abdominal exam: Present: normal bowel sounds, soft, no peritoneal signs. Absent: distended, tenderness - Extremities Exam Extremities exam: Present: warm, radial pulses palpable and symmetrical. Absent : calf tenderness, cyanotic, pedal edema Internal Medicine: Result - Labs CBC & Chem 7: 11/10/17 04:12 11/10/17 04:12 Labs: Short CBC 11/10/17 Range/Units 04:12 WBC 9.5 (4.3-11.1) K/mcL Hgb 12.6 (11.5-15.4) g/dL Hct 39.8 (35.3-44.9) % Plt Count 218 (140-400) K/mcL Neutrophils # 8.4 (1.6-8.9) K/mcL BMP 11/10/17 04:12 Sodium 136 Potassium 4.1 Chloride 107 Carbon Dioxide 17 L BUN 36 H Creatinine 3.23 H Glucose 265 H Calcium 8.9 Urine 11/10/17 Range/Units 15:36 Urine Color Yellow (Yellow) Urine Clarity Cloudy A (Clear) Urine pH 5.5 (5.0-8.0) pH Units Ur Specific [place] 1.020 (1.010-1.025) Urine Protein 100 H (Neg-Trace) mg/dL Urine Glucose (UA) 100 H (Normal) mg/dL Consult Discharge Plan - Plan Referrals: Shalonda Crowell MD [Primary Care Provider] -
[2017-11-10 17:03] LABS: Protein/Creatinine Ratio,Urine 1.59 mg/mg (0.00-0.20); Sodium, Urine 50.5 mEq/L
[2017-11-10] MEDS ORDERED: MethylPREDNISolone 40 MG/ML VIAL IVP SCH (18:00)
[2017-11-10] MEDS ORDERED: Gabapentin 300 MG CAPSULE PO SCH (21:00)
--- NOTE | 2017-11-11 17:22 | Discharge Summary ---
Orders not resulted at time of discharge: Pending orders 11/10/17 15:36 Immunofixation,Urine (BJP) Stat 11/10/17 15:44 MICAH IgG RICO rflx IFA Stat Complement Component 3 Stat Complement Component 4 Stat Protein Electrophoresis Stat Date of Encounter: 11/10/17 Time of Encounter: 10:30 - Discharge Diagnosis (1) Sepsis Priority: Primary Status: Acute Qualifiers: Sepsis type: sepsis due to unspecified organism Qualified Code(s): A41.9 - Sepsis, unspecified organism (2) Community acquired pneumonia Priority: Primary Status: Acute Qualifiers: Laterality: unspecified laterality Qualified Code(s): J18.9 - Pneumonia, unspecified organism (3) Acute exacerbation of chronic obstructive airways disease Priority: Primary Status: Acute (4) DIANA (acute kidney injury) Priority: Primary Status: Acute (5) Acute respiratory failure with hypoxia Priority: Primary Status: Acute (6) CAD (coronary artery disease) Priority: Secondary Status: Chronic Qualifiers: Coronary Disease-Associated Artery/Lesion type: [place] artery [place] vs. transplanted heart: [place] heart Associated angina: without angina Qualified Code(s): I25.10 - Atherosclerotic heart disease of [place] coronary artery without angina pectoris (7) CKD (chronic kidney disease) stage 3, GFR 30-59 ml/min Priority: Secondary Status: Chronic (8) DM2 (diabetes mellitus, type 2) Priority: Secondary Status: Chronic 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 mellitus fci insulin use: without fci use Chronic kidney disease stage: stage 3 (moderate) Qualified Code(s): E11.22 - Type 2 diabetes mellitus with diabetic chronic kidney disease; N18.3 - Chronic kidney disease, stage 3 ( moderate); N18.3 - Chronic kidney disease, stage 3 (moderate) (9) HTN (hypertension) Priority: Secondary Status: Chronic Qualifiers: Hypertension type: essential hypertension Qualified Code(s): I10 - Essential (primary) hypertension (10) Morbid obesity with BMI of 50.0-59.9, adult Priority: Secondary Status: Chronic (11) Tobacco abuse Priority: Secondary Status: Chronic Hospital course: Ms. Alexander is a 52 year old female with the above medical problems, admitted with SOB and cough. She was started on IV hydration and antibiotics for sepsis from Pneumonia. She was on nebulizers, supplemental O2 for acute exacerbation of COPD. SHe had acute on chronic renal failure, on IV hydration, nonoliguric; Nephrology was consulted and workup was pending. Patient decided to leave AMA after my shift, did not wait for on-call Hospitalist evaluation and left AMA, per RN notes. - Time Spent with Patient Total time spent providing and/or coordinating discharge services: Less than 30 minutes - Discharge Medications Home Medications: Carvedilol 3.125 mg PO BID 08/06/15 [History] Ferrous Sulfate 325 mg PO BID 08/06/15 [History] Rosuvastatin [Crestor] 40 mg PO HS 08/06/15 [History] Albuterol Sulfate [Ventolin Hfa] 2 puff IH Q6H PRN 11/29/15 [History] Pantoprazole Sodium [Protonix] 40 mg PO DAILY 11/29/15 [History] Tiotropium [Spiriva] 18 mcg IH DAILY 03/13/17 [History] Gabapentin [Neurontin] 300 mg PO TID #90 capsule 03/15/17 [Rx] OxyCODONE/APAP 5/325 [Percocet 5/325 MG] 1 tab PO TID PRN #30 tablet 03/15/17 [ Rx] Ergocalciferol (VITAMIN D2) [Vitamin D2] 50,000 unit PO QWEEK 11/09/17 [History] Levocetirizine Dihydrochloride [Levocetirizine Dihydrochloride] 5 mg PO DAILY [History] Losartan [Cozaar] 25 mg PO DAILY 11/09/17 [History] Allergies/Adverse Reactions: 3 Allergy/AdvReac Type Severity Reaction Status Date / Time No Known Allergies Allergy Verified 08/06/15 17:18 Date of admission: 11/09/17 08:57 Primary care physician: Shalonda Crowell, Consults: 11/10/17 10:00 Consult to Nephrology [CONS] Routine Consulting Provider: Kidney Sailaja/MONICA/ALPESH/JOSSIE Reason for Consult: DIANA on CKD, worsening, slightly oliguric Call Completed: Yes Anticipated date of discharge: 11/10/17 - Constitutional Vitals: Temp Pulse Resp BP Pulse Ox 98.5 F 60 18 148/77 93 11/10/17 15:05 11/10/17 15:05 11/10/17 15:05 11/10/17 15:05 11/10/17 15:05 General appearance: Present: A&O X 3, morbidly obese, no acute distress, answers questions appropriately - Patient Status Disposition: Left Against Medical Advice Condition: Fair - Discharge Instructions Follow Up With: Shalonda Crowell MD [Primary Care Provider] -
[2017-11-13 20:39] LABS: Urine Collection Duration RANDOM hr; Urine Collection Volume RANDOM mL
[2017-11-13 22:30] LABS: Alpha 2 Globulin (PEP) 1.27 g/dL (0.48-1.05); Beta Globulin (PEP) 1.02 g/dL (0.48-1.10)
[2017-11-14 10:07] LABS: IFE Reflexed NOT DONE
[2017-11-14 10:08] LABS: ANA IgG by ELISA NONE DETECTED (None Detected); Complement Component 3 173 mg/dL (88-201); Complement Component 4 41 mg/dL (10-40)
== END 2017-11-10 19:18 | disposition left against medical advice (07) | DRG 871 ==
LOC: EMEROO 21:05 → 3BNU 21:05 → 3ANU 11-09 01:07
PROVIDERS: ADMIT Internal Medicine; ATTEND Internal Medicine

== ENCOUNTER 2018-05-20 03:36 | Observation (INO) ==
[2018-05-20] MEDS ORDERED: Ondansetron 4 MG/2 ML VIAL IVP ONE ×3 (03:40→22:38)
[2018-05-20] MEDS ORDERED: *HR* FentaNYL (PF) 100 MCG/2 ML VIAL IVP ONE ×2 (03:41→06:39)
[2018-05-20 04:15] LABS: Basophils % 0.3 %; Eosinophils # 0.2 K/mcL (0.0-0.6); Eosinophils % 2.1 %; Hematocrit 44.7 % (35.3-44.9); Hemoglobin 14.3 g/dL (11.5-15.4); Immature Granulocytes % 0.3 % (0-4); Lymphocytes # 0.9 K/mcL (0.6-4.6); Lymphocytes % 12.6 %; Mean Corpuscular Hemoglobin 28.6 pg (28.0-33.3); Mean Corpuscular Volume 89.4 fL (83.0-100.0); Mean Platelet Volume 10.2 fL (9.4-12.4); Monocytes # 0.4 K/mcL (0.0-1.3); Monocytes % 5.2 %; Neutrophils # 5.7 K/mcL (1.6-8.9); Platelet Count 212 K/mcL (140-400); Red Cell Distribution Width 15.4 % (11.5-14.5); Segmented Neutrophils % 79.5 %
[2018-05-20 04:38] LABS: Albumin 4.3 g/dL (3.5-5.7); Albumin/Globulin Ratio 1.2 (1.1-2.2); Bilirubin,Direct 0.1 mg/dL (0.0-0.2); Bilirubin,Indirect 0.6 mg/dL (0.0-1.2); Bilirubin,Total 0.7 mg/dL (0.3-1.0); Calcium 9.9 mg/dL (8.6-10.3); Globulin 3.7 g/dL (2.4-3.5); Potassium 4.4 mEq/L (3.5-5.1)
[2018-05-20 06:25] LABS: Bilirubin,Urine Negative (Negative); Blood,Urine Negative (Negative); Clarity,Urine Clear (Clear); Color,Urine Yellow (Yellow); Glucose,Urine (UA) Normal (Normal); Ketones,Urine Negative (Negative); Leukocyte Esterase,Urine Negative (Negative); Nitrite,Urine Negative (Negative); Protein,Urine Trace mg/dL (Neg-Trace); Specific Gravity,Urine 1.011 (1.010-1.025); Urobilinogen,Urine Normal (Normal)
[2018-05-20 06:27] LABS: Bacteria,Urine None Seen per hpf (None-Few); Hyaline Casts,Urine None Seen per lpf (None-Few); RBC,Urine 0-3 per hpf (0-3); Squamous Epithelial Cell,Urine Many per lpf (None-Few); WBC,Urine 0-3 per hpf (0-3)
--- NOTE | 2018-05-20 06:40 | Emergency Department Note ---
Disposition Clinical Impression: Nausea & vomiting Qualifiers: Vomiting type: unspecified Vomiting Intractability: non-intractable Qualified Code(s): R11.2 - Nausea with vomiting, unspecified Disposition: Home, Self-Care Condition: Good Referrals: Shalonda Crowell MD [Primary Care Provider] - Forms: ED Satisfaction Letter Time of Disposition: 07:13 Nausea/Vomiting/Diarrhea HPI - General Chief complaint: ED Nausea/Vomiting/Diarrhea Stated complaint: n/v Time Seen by Provider: 05/20/18 03:39 Source: patient, EMS Limitations: no limitations Nursing Notes Reviewed: Yes Vital Signs Reviewed: Yes - History of Present Illness Pt Subjective Complaint: abdominal pain Onset (ago): hour(s) Description of emesis: watery Associated Abdominal Pain: Yes If pain, Location of pain: diffuse Consistency: constant Improves with: nothing Worsens with: nonthing Associated symptoms: Reports: loss of appetite, nausea/vomiting. Denies: chest pain, cough, malaise, dysuria, weakness - Related Data Home Medications Medication Instructions Recorded Confirmed Carvedilol 3.125 mg PO BID 08/06/15 11/09/17 Ferrous Sulfate 325 mg PO BID 08/06/15 11/09/17 Rosuvastatin [Crestor] 40 mg PO HS 08/06/15 11/09/17 Albuterol Sulfate [Ventolin Hfa] 2 puff IH Q6H PRN 11/29/15 11/09/17 Pantoprazole Sodium [Protonix] 40 mg PO DAILY 11/29/15 11/09/17 Tiotropium [Spiriva] 18 mcg IH DAILY 03/13/17 11/09/17 Ergocalciferol (VITAMIN D2) 50,000 unit PO QWEEK 11/09/17 11/09/17 [Vitamin D2] Levocetirizine Dihydrochloride 5 mg PO DAILY 11/09/17 11/09/17 [Levocetirizine Dihydrochloride] Losartan [Cozaar] 25 mg PO DAILY 11/09/17 11/09/17 Previous Rx's Medication Instructions Recorded Gabapentin [Neurontin] 300 mg PO TID #90 capsule 03/15/17 OxyCODONE/APAP 5/325 [Percocet 1 tab PO TID PRN #30 tablet 03/15/17 5/325 MG] Allergies Allergy/AdvReac Type Severity Reaction Status Date / Time No Known Allergies Allergy Verified 08/06/15 17:18 All systems ED: reviewed and negative except as stated. Review of Systems: As Per HPI Constitutional: Denies: fever Eyes: Denies: eye discharge ENT ED: Denies: throat pain Cardiovascular: Denies: chest pain, palpitations Respiratory: Denies: dyspnea Gastrointestinal: Reports: as per HPI Genitourinary: Denies: dysuria, discharge Musculoskeletal: Denies: back pain Integumentary: Denies: rash Neurological: Denies: headache Endocrine: Denies: fatigue Allergic/Immunologic: Denies: facial swelling Past Medical History - Past Medical History Medical history: Reports: asthma, COPD, coronary artery disease, diabetes, hyperlipidemia, hypertension, renal disease, other Surgical history: Reports: non-contributory Psychiatric history: Reports: no psych history 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 Absent: conjunctival injection - ENT ENT exam: mucous membranes moist - Neck Neck exam: Present: full ROM - Chest Chest inspection: Present: symmetric chest wall rise - Respiratory Respiratory exam: Absent: respiratory distress - Cardiovascular Cardiovascular exam: Present: regular rate - Abdominal Exam Abdominal exam: Present: soft, tenderness (diffuse over upper abdomen). Absent : distention, guarding, rebound, Powers's sign, tenderness at McBurney's Point - Extremities Exam Extremities exam: Present: normal inspection, normal capillary refill - Back Exam Back exam: Present: normal inspection, full ROM - Neurological Exam Neurological exam: Present: alert - Psychiatric Psychiatric exam: Present: normal affect, normal mood - Skin Skin exam: Present: warm, dry, intact, normal color. Absent: rash, cyanosis, diaphoresis Course Course Narrative: 53-year-old female arrives via squad with complaint of abdominal pain. She describes it as "it hurts". It is accompanied with nausea and vomiting. She states before bedtime she was feeling fine. She denies any diarrhea or constipation hematemesis, melena, fever, chest pain, diarrhea. Patient denies any past surgical history. On examination, she has diffuse abdominal tenderness worse with palpation. Her vitals are within normal limits. I have ordered analgesics and antiemetics. We will try to control her symptoms. I did discuss patient with Dr. Russell who agreed to see patient and agreed for CT scan. Patient is diabetic with known history of chronic kidney disease, we will plan CT without contrast. - Reevaluation(s) Reevaluation #1: Patient's lab work shows no elevation of white count, liver enzymes, lipase. Her renal function and appears improved since previous labs. No evidence of urinary tract infection. On repeat examination, she does have some mild right upper quadrant tenderness on palpation. Powers sign negative. We will plan for gallbladder ultrasound. Additional analgesics have been ordered. Patient was discussed with oncoming provider Julia Mays PA-C. Due to shift change, she will take over care of this patient. Please see her documentation for additional details and final disposition of this patient. If patient's pain is controlled, and she has a normal ultrasound of her gallbladder, I feel patient can be discharged to follow up with her primary care provider or possibly gastroenterology. However please see Julia's documentation for final details on patient's disposition and any changes to this plan. Time: 07:11 Vital Signs Temperature 98.2 F 05/20/18 03:39 Pulse Rate 71 05/20/18 03:39 Respiratory Rate 20 05/20/18 03:39 Blood Pressure 183/120 05/20/18 03:39 O2 Sat by Pulse Oximetry 94 05/20/18 03:39 Temperature 98.2 F 05/20/18 03:39 Pulse Rate 64 05/20/18 06:53 Respiratory Rate 16 05/20/18 06:53 Blood Pressure 163/83 05/20/18 06:53 O2 Sat by Pulse Oximetry 93 05/20/18 06:53 Oxygen Delivery Oxygen Delivery Room Air Nausea/Vomiting/Diarrhea - [facility] Narrative Medical decision making narrative: Abdomen/Pelvis CT 05/20/18 04:21 IMPRESSION: 1. Cholelithiasis. Question small pericholecystic fluid. Correlate for right upper quadrant pain. The right upper quadrant ultrasound can be performed if clinically appropriate. 2. Otherwise no acute noncontrast findings in the abdomen or pelvis. 3. Fibroid uterus. D/ / Zeinab Mccray MD / Zeinab Mccray MD Interpreting Provider: Zeinab Mccray MD Laboratory Tests 05/20/18 05/20/18 05/20/18 03:57 03:57 03:57 WBC 7.1 RBC 5.00 H Hgb 14.3 Hct 44.7 MCV 89.4 MCH 28.6 MCHC 32.0 RDW 15.4 H Plt Count 212 MPV 10.2 Immature Gran % 0.3 Seg Neutrophils % 79.5 Lymphocytes % 12.6 Monocytes % 5.2 Eosinophils % 2.1 Basophils % 0.3 Neutrophils # 5.7 Lymphocytes # 0.9 Monocytes # 0.4 Eosinophils # 0.2 Basophils # 0.0 Sodium 139 Potassium 4.4 Chloride 106 Carbon Dioxide 23 BUN 13 Creatinine 1.47 H Est GFR ( Amer) 45 L Est GFR (Non-Af Amer) 37 L BUN/Creatinine Ratio 9 Glucose 173 H Calculated Osmolality 292 Lactic Acid 0.9 Calcium 9.9 Total Bilirubin 0.7 Direct Bilirubin 0.1 Indirect Bilirubin 0.6 AST 10 L ALT 11 Alkaline Phosphatase 85 Serum Total Protein 8.0 Albumin 4.3 Globulin 3.7 H Albumin/Globulin Ratio 1.2 Amylase 41 Lipase 52 Urine Color Urine Clarity Urine pH Ur Specific [place] Urine Protein Urine Glucose (UA) Urine Ketones Urine Blood Urine Nitrite Urine Bilirubin Urine Urobilinogen Ur Leukocyte Esterase Urine Microscopic RBC Urine Microscopic WBC Ur Squamous Epith Cells Urine Bacteria Hyaline Casts Ur Culture Indicated? 05/20/18 06:07 WBC RBC Hgb Hct MCV MCH MCHC RDW Plt Count MPV Immature Gran % Seg Neutrophils % Lymphocytes % Monocytes % Eosinophils % Basophils % Neutrophils # Lymphocytes # Monocytes # Eosinophils # Basophils # Sodium Potassium Chloride Carbon Dioxide BUN Creatinine Est GFR ( Amer) Est GFR (Non-Af Amer) BUN/Creatinine Ratio Glucose Calculated Osmolality Lactic Acid Calcium Total Bilirubin Direct Bilirubin Indirect Bilirubin AST ALT Alkaline Phosphatase Serum Total Protein Albumin Globulin Albumin/Globulin Ratio Amylase Lipase Urine Color Yellow Urine Clarity Clear Urine pH 6.0 Ur Specific [place] 1.011 Urine Protein Trace Urine Glucose (UA) Normal Urine Ketones Negative Urine Blood Negative Urine Nitrite Negative Urine Bilirubin Negative Urine Urobilinogen Normal Ur Leukocyte Esterase Negative Urine Microscopic RBC 0-3 Urine Microscopic WBC 0-3 Ur Squamous Epith Cells Many H Urine Bacteria None Seen Hyaline Casts None Seen Ur Culture Indicated? NO - Lab Data Lab results reviewed: Yes I reviewed the patient's lab results. Result diagrams: 05/20/18 03:57 05/20/18 03:57 Lab Results 05/20/18 05/20/18 05/20/18 Range/Units 03:57 03:57 03:57 WBC 7.1 (4.3-11.1) K/mcL RBC 5.00 H (3.82-4.97) M/mcL Hgb 14.3 (11.5-15.4) g/dL Hct 44.7 (35.3-44.9) % MCV 89.4 (83.0-100.0) fL MCH 28.6 (28.0-33.3) pg MCHC 32.0 (31.6-35.5) g/dL RDW 15.4 H (11.5-14.5) % Plt Count 212 (140-400) K/mcL MPV 10.2 (9.4-12.4) fL Immature Gran % 0.3 (0-4) % Seg Neutrophils % 79.5 % Lymphocytes % 12.6 % Monocytes % 5.2 % Eosinophils % 2.1 % Basophils % 0.3 % Neutrophils # 5.7 (1.6-8.9) K/mcL Lymphocytes # 0.9 (0.6-4.6) K/mcL Monocytes # 0.4 (0.0-1.3) K/mcL Eosinophils # 0.2 (0.0-0.6) K/mcL Basophils # 0.0 (0.0-0.2) K/mcL Sodium 139 (136-145) mEq/L Potassium 4.4 (3.5-5.1) mEq/L Chloride 106 (98-107) mEq/L Carbon Dioxide 23 (23-29) mEq/L BUN 13 (6-20) mg/dL Creatinine 1.47 H (0.60-1.20) mg/dL Est GFR ( Amer) 45 L (> 60) Est GFR (Non-Af Amer) 37 L (> 60) BUN/Creatinine Ratio 9 (6-26) Glucose 173 H (70-105) mg/dL Calculated Osmolality 292 (280-300) Lactic Acid 0.9 (0.5-2.2) mmol/L Calcium 9.9 (8.6-10.3) mg/dL Total Bilirubin 0.7 (0.3-1.0) mg/dL Direct Bilirubin 0.1 (0.0-0.2) mg/dL Indirect Bilirubin 0.6 (0.0-1.2) mg/dL AST 10 L (13-39) Units/L ALT 11 (7-52) Units/L Alkaline Phosphatase 85 (34-104) Units/L Serum Total Protein 8.0 (6.4-8.9) g/dL Albumin 4.3 (3.5-5.7) g/dL Globulin 3.7 H (2.4-3.5) g/dL Albumin/Globulin Ratio 1.2 (1.1-2.2) Amylase 41 (29-103) Units/L Lipase 52 (11-82) Units/L Urine Color (Yellow) Urine Clarity (Clear) Urine pH (5.0-8.0) pH Units Ur Specific [place] (1.010-1.025) Urine Protein (Neg-Trace) mg/dL Urine Glucose (UA) (Normal) mg/dL Urine Ketones (Negative) mg/dL Urine Blood (Negative) Urine Nitrite (Negative) Urine Bilirubin (Negative) Urine Urobilinogen (Normal) mg/dL Ur Leukocyte Esterase (Negative) Urine Microscopic RBC (0-3) per hpf Urine Microscopic WBC (0-3) per hpf Ur Squamous Epith Cells (None-Few) per lpf Urine Bacteria (None-Few) per hpf Hyaline Casts (None-Few) per lpf Ur Culture Indicated? (NO) 05/20/18 Range/Units 06:07 WBC (4.3-11.1) K/mcL RBC (3.82-4.97) M/mcL Hgb (11.5-15.4) g/dL Hct (35.3-44.9) % MCV (83.0-100.0) fL MCH (28.0-33.3) pg MCHC (31.6-35.5) g/dL RDW (11.5-14.5) % Plt Count (140-400) K/mcL MPV (9.4-12.4) fL Immature Gran % (0-4) % Seg Neutrophils % % Lymphocytes % % Monocytes % % Eosinophils % % Basophils % % Neutrophils # (1.6-8.9) K/mcL Lymphocytes # (0.6-4.6) K/mcL Monocytes # (0.0-1.3) K/mcL Eosinophils # (0.0-0.6) K/mcL Basophils # (0.0-0.2) K/mcL Sodium (136-145) mEq/L Potassium (3.5-5.1) mEq/L Chloride (98-107) mEq/L Carbon Dioxide (23-29) mEq/L BUN (6-20) mg/dL Creatinine (0.60-1.20) mg/dL Est GFR ( Amer) (> 60) Est GFR (Non-Af Amer) (> 60) BUN/Creatinine Ratio (6-26) Glucose (70-105) mg/dL Calculated Osmolality (280-300) Lactic Acid (0.5-2.2) mmol/L Calcium (8.6-10.3) mg/dL Total Bilirubin (0.3-1.0) mg/dL Direct Bilirubin (0.0-0.2) mg/dL Indirect Bilirubin (0.0-1.2) mg/dL AST (13-39) Units/L ALT (7-52) Units/L Alkaline Phosphatase (34-104) Units/L Serum Total Protein (6.4-8.9) g/dL Albumin (3.5-5.7) g/dL Globulin (2.4-3.5) g/dL Albumin/Globulin Ratio (1.1-2.2) Amylase (29-103) Units/L Lipase (11-82) Units/L Urine Color Yellow (Yellow) Urine Clarity Clear (Clear) Urine pH 6.0 (5.0-8.0) pH Units Ur Specific [place] 1.011 (1.010-1.025) Urine Protein Trace (Neg-Trace) mg/dL Urine Glucose (UA) Normal (Normal) mg/dL Urine Ketones Negative (Negative) mg/dL Urine Blood Negative (Negative) Urine Nitrite Negative (Negative) Urine Bilirubin Negative (Negative) Urine Urobilinogen Normal (Normal) mg/dL Ur Leukocyte Esterase Negative (Negative) Urine Microscopic RBC 0-3 (0-3) per hpf Urine Microscopic WBC 0-3 (0-3) per hpf Ur Squamous Epith Cells Many H (None-Few) per lpf Urine Bacteria None Seen (None-Few) per hpf Hyaline Casts None Seen (None-Few) per lpf Ur Culture Indicated? NO (NO) - Radiology Data Radiology results reviewed: Yes I reviewed the patient's radiology results.
--- NOTE | 2018-05-20 07:37 | Emergency Department Note ---
Disposition Clinical Impression: Nausea & vomiting Qualifiers: Vomiting type: unspecified Vomiting Intractability: non-intractable Qualified Code(s): R11.2 - Nausea with vomiting, unspecified Cholelithiasis Qualifiers: Cholelithiasis location: gallbladder Cholecystitis acuity: unspecified acuity Disposition: Still a Patient Condition: Good Referrals: Shalonda Crowell MD [Primary Care Provider] - Forms: ED Satisfaction Letter General Adult HPI - General Chief complaint: ED Nausea/Vomiting/Diarrhea Stated complaint: n/v Time Seen by Provider: 05/20/18 03:39 Source: patient, EMS Limitations: no limitations Nursing Notes Reviewed: Yes Vital Signs Reviewed: Yes - History of Present Illness Pain Scale: 6 - Related Data Home Medications Medication Instructions Recorded Confirmed Carvedilol 3.125 mg PO BID 08/06/15 11/09/17 Ferrous Sulfate 325 mg PO BID 08/06/15 11/09/17 Rosuvastatin [Crestor] 40 mg PO HS 08/06/15 11/09/17 Albuterol Sulfate [Ventolin Hfa] 2 puff IH Q6H PRN 11/29/15 11/09/17 Pantoprazole Sodium [Protonix] 40 mg PO DAILY 11/29/15 11/09/17 Tiotropium [Spiriva] 18 mcg IH DAILY 03/13/17 11/09/17 Ergocalciferol (VITAMIN D2) 50,000 unit PO QWEEK 11/09/17 11/09/17 [Vitamin D2] Levocetirizine Dihydrochloride 5 mg PO DAILY 11/09/17 11/09/17 [Levocetirizine Dihydrochloride] Losartan [Cozaar] 25 mg PO DAILY 11/09/17 11/09/17 Previous Rx's Medication Instructions Recorded Gabapentin [Neurontin] 300 mg PO TID #90 capsule 03/15/17 OxyCODONE/APAP 5/325 [Percocet 1 tab PO TID PRN #30 tablet 03/15/17 5/325 MG] Allergies Allergy/AdvReac Type Severity Reaction Status Date / Time No Known Allergies Allergy Verified 08/06/15 17:18 Constitutional: Denies: fever Eyes: Denies: eye discharge ENT ED: Denies: throat pain Cardiovascular: Denies: chest pain, palpitations Respiratory: Denies: dyspnea Gastrointestinal: Reports: as per HPI Genitourinary: Denies: dysuria, discharge Musculoskeletal: Denies: back pain Integumentary: Denies: rash Neurological: Denies: headache Endocrine: Denies: fatigue Allergic/Immunologic: Denies: facial swelling Past Medical History - Past Medical History Medical history: Reports: asthma, COPD, coronary artery disease, diabetes, hyperlipidemia, hypertension, renal disease, other Surgical history: Reports: non-contributory Psychiatric history: Reports: no psych history 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 history - Social History Smoking Status: Current every day smoker Smokeless Tobacco Status: No Alcohol use: Reports: none Drug use: Reports: none Physical Exam - General Limitations: no limitations General appearance: alert, in no apparent distress Course Vital Signs Temperature 98.2 F 05/20/18 03:39 Pulse Rate 71 05/20/18 03:39 Respiratory Rate 20 05/20/18 03:39 Blood Pressure 183/120 05/20/18 03:39 O2 Sat by Pulse Oximetry 94 05/20/18 03:39 Temperature 98.2 F 05/20/18 03:39 Pulse Rate 64 05/20/18 06:53 Respiratory Rate 16 05/20/18 06:53 Blood Pressure 163/83 05/20/18 06:53 O2 Sat by Pulse Oximetry 93 05/20/18 06:53 Oxygen Delivery Oxygen Delivery Room Air Medical Decision Making - Medical Records Medical records reviewed: Yes I reviewed the patient's medical records. - Lab Data Lab results reviewed: Yes I reviewed the patient's lab results. Result diagrams: 05/20/18 03:57 05/20/18 03:57 Lab Results 05/20/18 05/20/18 05/20/18 Range/Units 03:57 03:57 03:57 WBC 7.1 (4.3-11.1) K/mcL RBC 5.00 H (3.82-4.97) M/mcL Hgb 14.3 (11.5-15.4) g/dL Hct 44.7 (35.3-44.9) % MCV 89.4 (83.0-100.0) fL MCH 28.6 (28.0-33.3) pg MCHC 32.0 (31.6-35.5) g/dL RDW 15.4 H (11.5-14.5) % Plt Count 212 (140-400) K/mcL MPV 10.2 (9.4-12.4) fL Immature Gran % 0.3 (0-4) % Seg Neutrophils % 79.5 % Lymphocytes % 12.6 % Monocytes % 5.2 % Eosinophils % 2.1 % Basophils % 0.3 % Neutrophils # 5.7 (1.6-8.9) K/mcL Lymphocytes # 0.9 (0.6-4.6) K/mcL Monocytes # 0.4 (0.0-1.3) K/mcL Eosinophils # 0.2 (0.0-0.6) K/mcL Basophils # 0.0 (0.0-0.2) K/mcL Sodium 139 (136-145) mEq/L Potassium 4.4 (3.5-5.1) mEq/L Chloride 106 (98-107) mEq/L Carbon Dioxide 23 (23-29) mEq/L BUN 13 (6-20) mg/dL Creatinine 1.47 H (0.60-1.20) mg/dL Est GFR ( Amer) 45 L (> 60) Est GFR (Non-Af Amer) 37 L (> 60) BUN/Creatinine Ratio 9 (6-26) Glucose 173 H (70-105) mg/dL Calculated Osmolality 292 (280-300) Lactic Acid 0.9 (0.5-2.2) mmol/L Calcium 9.9 (8.6-10.3) mg/dL Total Bilirubin 0.7 (0.3-1.0) mg/dL Direct Bilirubin 0.1 (0.0-0.2) mg/dL Indirect Bilirubin 0.6 (0.0-1.2) mg/dL AST 10 L (13-39) Units/L ALT 11 (7-52) Units/L Alkaline Phosphatase 85 (34-104) Units/L Serum Total Protein 8.0 (6.4-8.9) g/dL Albumin 4.3 (3.5-5.7) g/dL Globulin 3.7 H (2.4-3.5) g/dL Albumin/Globulin Ratio 1.2 (1.1-2.2) Amylase 41 (29-103) Units/L Lipase 52 (11-82) Units/L Urine Color (Yellow) Urine Clarity (Clear) Urine pH (5.0-8.0) pH Units Ur Specific [place] (1.010-1.025) Urine Protein (Neg-Trace) mg/dL Urine Glucose (UA) (Normal) mg/dL Urine Ketones (Negative) mg/dL Urine Blood (Negative) Urine Nitrite (Negative) Urine Bilirubin (Negative) Urine Urobilinogen (Normal) mg/dL Ur Leukocyte Esterase (Negative) Urine Microscopic RBC (0-3) per hpf Urine Microscopic WBC (0-3) per hpf Ur Squamous Epith Cells (None-Few) per lpf Urine Bacteria (None-Few) per hpf Hyaline Casts (None-Few) per lpf Ur Culture Indicated? (NO) 05/20/18 Range/Units 06:07 WBC (4.3-11.1) K/mcL RBC (3.82-4.97) M/mcL Hgb (11.5-15.4) g/dL Hct (35.3-44.9) % MCV (83.0-100.0) fL MCH (28.0-33.3) pg MCHC (31.6-35.5) g/dL RDW (11.5-14.5) % Plt Count (140-400) K/mcL MPV (9.4-12.4) fL Immature Gran % (0-4) % Seg Neutrophils % % Lymphocytes % % Monocytes % % Eosinophils % % Basophils % % Neutrophils # (1.6-8.9) K/mcL Lymphocytes # (0.6-4.6) K/mcL Monocytes # (0.0-1.3) K/mcL Eosinophils # (0.0-0.6) K/mcL Basophils # (0.0-0.2) K/mcL Sodium (136-145) mEq/L Potassium (3.5-5.1) mEq/L Chloride (98-107) mEq/L Carbon Dioxide (23-29) mEq/L BUN (6-20) mg/dL Creatinine (0.60-1.20) mg/dL Est GFR ( Amer) (> 60) Est GFR (Non-Af Amer) (> 60) BUN/Creatinine Ratio (6-26) Glucose (70-105) mg/dL Calculated Osmolality (280-300) Lactic Acid (0.5-2.2) mmol/L Calcium (8.6-10.3) mg/dL Total Bilirubin (0.3-1.0) mg/dL Direct Bilirubin (0.0-0.2) mg/dL Indirect Bilirubin (0.0-1.2) mg/dL AST (13-39) Units/L ALT (7-52) Units/L Alkaline Phosphatase (34-104) Units/L Serum Total Protein (6.4-8.9) g/dL Albumin (3.5-5.7) g/dL Globulin (2.4-3.5) g/dL Albumin/Globulin Ratio (1.1-2.2) Amylase (29-103) Units/L Lipase (11-82) Units/L Urine Color Yellow (Yellow) Urine Clarity Clear (Clear) Urine pH 6.0 (5.0-8.0) pH Units Ur Specific [place] 1.011 (1.010-1.025) Urine Protein Trace (Neg-Trace) mg/dL Urine Glucose (UA) Normal (Normal) mg/dL Urine Ketones Negative (Negative) mg/dL Urine Blood Negative (Negative) Urine Nitrite Negative (Negative) Urine Bilirubin Negative (Negative) Urine Urobilinogen Normal (Normal) mg/dL Ur Leukocyte Esterase Negative (Negative) Urine Microscopic RBC 0-3 (0-3) per hpf Urine Microscopic WBC 0-3 (0-3) per hpf Ur Squamous Epith Cells Many H (None-Few) per lpf Urine Bacteria None Seen (None-Few) per hpf Hyaline Casts None Seen (None-Few) per lpf Ur Culture Indicated? NO (NO) - Radiology Data Radiology results reviewed: Yes I reviewed the patient's radiology results. Abdomen/Pelvis CT 05/20/18 04:21 IMPRESSION: 1. Cholelithiasis. Question small pericholecystic fluid. Correlate for right upper quadrant pain. The right upper quadrant ultrasound can be performed if clinically appropriate. 2. Otherwise no acute noncontrast findings in the abdomen or pelvis. 3. Fibroid uterus. D/ / Zeinab Mccray MD / Zeinab Mccray MD Interpreting Provider: Zeinab Mccray MD Attestation Statement - Attestation Attestation: I, Madhu Russell MD, personally evaluated this patient and discussed their management with the resident physician. I reviewed the resident's note and agree with the documented findings, medical decision making, and plan of care. 53-year-old female presents to the emergency department with a complaint of epigastric and right upper quadrant abdominal pain associated with nausea and vomiting which started earlier this evening when she was getting ready for bed. No diarrhea. No fever. No melena, hematemesis, or hematochezia. No urinary symptoms. Patient does still have her gallbladder. On examination patient is a well-developed obese female in no acute distress but does appear to be in moderate discomfort. She is alert and oriented 3. There is no cyanosis or diaphoresis. Breath sounds are clear and equal bilaterally. Heart regular rate and rhythm. Abdomen is soft with normal bowel sounds. There is moderate epigastric and right upper quadrant tenderness. Labs reviewed and unremarkable. CT of the abdomen and pelvis shows cholelithiasis with some questionable pericholecystic fluid. A gallbladder ultrasound was recommended and was ordered and pending.
[2018-05-20] MEDS ORDERED: Ampicillin/Sulbactam 3,000 MG in 0.9 % Sodium Chloride Mini Bag 100 ML IVPB ONE (10:50)
[2018-05-20] MEDS ORDERED: 0.9 % Sodium Chloride 1,000 ML IVC ONE (10:51)
--- NOTE | 2018-05-20 10:57 | Emergency Department Note ---
Disposition Clinical Impression: Acute calculous cholecystitis, CKD (chronic kidney disease) stage 3, GFR 30-59 ml/min Disposition: Admitted As Inpatient Condition: Fair Referrals: Shalonda Crowell MD [Primary Care Provider] - Forms: ED Satisfaction Letter General Adult HPI - General Chief complaint: ED Nausea/Vomiting/Diarrhea Stated complaint: n/v Time Seen by Provider: 05/20/18 03:39 Source: patient, EMS Limitations: no limitations - History of Present Illness Pain Scale: 0 - Related Data Home Medications Medication Instructions Recorded Confirmed Carvedilol 3.125 mg PO BID 08/06/15 11/09/17 Ferrous Sulfate 325 mg PO BID 08/06/15 11/09/17 Rosuvastatin [Crestor] 40 mg PO HS 08/06/15 11/09/17 Albuterol Sulfate [Ventolin Hfa] 2 puff IH Q6H PRN 11/29/15 11/09/17 Pantoprazole Sodium [Protonix] 40 mg PO DAILY 11/29/15 11/09/17 Tiotropium [Spiriva] 18 mcg IH DAILY 03/13/17 11/09/17 Ergocalciferol (VITAMIN D2) 50,000 unit PO QWEEK 11/09/17 11/09/17 [Vitamin D2] Levocetirizine Dihydrochloride 5 mg PO DAILY 11/09/17 11/09/17 [Levocetirizine Dihydrochloride] Losartan [Cozaar] 25 mg PO DAILY 11/09/17 11/09/17 Previous Rx's Medication Instructions Recorded Gabapentin [Neurontin] 300 mg PO TID #90 capsule 03/15/17 OxyCODONE/APAP 5/325 [Percocet 1 tab PO TID PRN #30 tablet 03/15/17 5/325 MG] Allergies Allergy/AdvReac Type Severity Reaction Status Date / Time No Known Allergies Allergy Verified 08/06/15 17:18 Constitutional: Denies: fever Eyes: Denies: eye discharge ENT ED: Denies: throat pain Cardiovascular: Denies: chest pain, palpitations Respiratory: Denies: dyspnea Gastrointestinal: Reports: as per HPI Genitourinary: Denies: dysuria, discharge Musculoskeletal: Denies: back pain Integumentary: Denies: rash Neurological: Denies: headache Endocrine: Denies: fatigue Allergic/Immunologic: Denies: facial swelling Past Medical History - Past Medical History Medical history: Reports: asthma, COPD, coronary artery disease, diabetes, hyperlipidemia, hypertension, renal disease, other Surgical history: Reports: non-contributory Psychiatric history: Reports: no psych history 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 Patient reportedly has gallstones seen on the CAT scan. She has had right upper quadrant and epigastric abdominal pain for several days along with nonbloody, nonbilious emesis. Additional pain medication was ordered from the cage shift manager provider. Vitals are stable. She is currently afebrile. She appears uncomfortable but nontoxic. She is sitting up, receiving oxygen by nasal cannula. She does have multiple significant comorbidities. Labs show a slightly improved renal function compared to previous. She has chronic kidney disease and sees Dr. Flowers for this. Right upper quadrant ultrasound shows a large gallstone mild gallbladder wall thickening and pericholecystic fluid. Surgery has been paged. Unasyn has been ordered. Patient accepted by Dr. Hillman. - Consultations Consultation #1: Case was discussed with Dr. Hillman, including patient's significant multiple comorbidities, CT and ultrasound findings, vital signs and lab results. He states, "we will get the patient admitted." Time: 10:56 Vital Signs Temperature 98.2 F 05/20/18 03:39 Pulse Rate 71 05/20/18 03:39 Respiratory Rate 20 05/20/18 03:39 Blood Pressure 183/120 05/20/18 03:39 O2 Sat by Pulse Oximetry 94 05/20/18 03:39 Temperature 98.2 F 05/20/18 03:39 Pulse Rate 53 05/20/18 10:03 Respiratory Rate 15 05/20/18 10:03 Blood Pressure 160/90 05/20/18 10:03 O2 Sat by Pulse Oximetry 96 05/20/18 10:03 Oxygen Delivery Oxygen Delivery Room Air Medical Decision Making - Medical Records Medical records reviewed: Yes I reviewed the patient's medical records. - Lab Data Lab results reviewed: Yes I reviewed the patient's lab results. Lab results narrative: Laboratory Last Values WBC 7.1 K/mcL (4.3-11.1) 05/20/18 03:57 RBC 5.00 M/mcL (3.82-4.97) H 05/20/18 03:57 Hgb 14.3 g/dL (11.5-15.4) 05/20/18 03:57 Hct 44.7 % (35.3-44.9) 05/20/18 03:57 MCV 89.4 fL (83.0-100.0) 05/20/18 03:57 MCH 28.6 pg (28.0-33.3) 05/20/18 03:57 MCHC 32.0 g/dL (31.6-35.5) 05/20/18 03:57 RDW 15.4 % (11.5-14.5) H 05/20/18 03:57 Plt Count 212 K/mcL (140-400) 05/20/18 03:57 MPV 10.2 fL (9.4-12.4) 05/20/18 03:57 Immature Gran % 0.3 % (0-4) 05/20/18 03:57 Seg Neutrophils % 79.5 % 05/20/18 03:57 Lymphocytes % 12.6 % 05/20/18 03:57 Monocytes % 5.2 % 05/20/18 03:57 Eosinophils % 2.1 % 05/20/18 03:57 Basophils % 0.3 % 05/20/18 03:57 Neutrophils # 5.7 K/mcL (1.6-8.9) 05/20/18 03:57 Lymphocytes # 0.9 K/mcL (0.6-4.6) 05/20/18 03:57 Monocytes # 0.4 K/mcL (0.0-1.3) 05/20/18 03:57 Eosinophils # 0.2 K/mcL (0.0-0.6) 05/20/18 03:57 Basophils # 0.0 K/mcL (0.0-0.2) 05/20/18 03:57 Sodium 139 mEq/L (136-145) 05/20/18 03:57 Potassium 4.4 mEq/L (3.5-5.1) 05/20/18 03:57 Chloride 106 mEq/L (98-107) 05/20/18 03:57 Carbon Dioxide 23 mEq/L (23-29) 05/20/18 03:57 BUN 13 mg/dL (6-20) 05/20/18 03:57 Creatinine 1.47 mg/dL (0.60-1.20) H 05/20/18 03:57 Est GFR ( Amer) 45 (> 60) L 05/20/18 03:57 Est GFR (Non-Af Amer) 37 (> 60) L 05/20/18 03:57 BUN/Creatinine Ratio 9 (6-26) 05/20/18 03:57 Glucose 173 mg/dL (70-105) H 05/20/18 03:57 Calculated Osmolality 292 (280-300) 05/20/18 03:57 Lactic Acid 0.9 mmol/L (0.5-2.2) 05/20/18 03:57 Calcium 9.9 mg/dL (8.6-10.3) 05/20/18 03:57 Total Bilirubin 0.7 mg/dL (0.3-1.0) 05/20/18 03:57 Direct Bilirubin 0.1 mg/dL (0.0-0.2) 05/20/18 03:57 Indirect Bilirubin 0.6 mg/dL (0.0-1.2) 05/20/18 03:57 AST 10 Units/L (13-39) L 05/20/18 03:57 ALT 11 Units/L (7-52) 05/20/18 03:57 Alkaline Phosphatase 85 Units/L (34-104) 05/20/18 03:57 Serum Total Protein 8.0 g/dL (6.4-8.9) 05/20/18 03:57 Albumin 4.3 g/dL (3.5-5.7) 05/20/18 03:57 Globulin 3.7 g/dL (2.4-3.5) H 05/20/18 03:57 Albumin/Globulin Ratio 1.2 (1.1-2.2) 05/20/18 03:57 Amylase 41 Units/L (29-103) 05/20/18 03:57 Lipase 52 Units/L (11-82) 05/20/18 03:57 Urine Color Yellow (Yellow) 05/20/18 06:07 Urine Clarity Clear (Clear) 05/20/18 06:07 Urine pH 6.0 pH Units (5.0-8.0) 05/20/18 06:07 Ur Specific [place] 1.011 (1.010-1.025) 05/20/18 06:07 Urine Protein Trace mg/dL (Neg-Trace) 05/20/18 06:07 Urine Glucose (UA) Normal mg/dL (Normal) 05/20/18 06:07 Urine Ketones Negative mg/dL (Negative) 05/20/18 06:07 Urine Blood Negative (Negative) 05/20/18 06:07 Urine Nitrite Negative (Negative) 05/20/18 06:07 Urine Bilirubin Negative (Negative) 05/20/18 06:07 Urine Urobilinogen Normal mg/dL (Normal) 05/20/18 06:07 Ur Leukocyte Esterase Negative (Negative) 05/20/18 06:07 Urine Microscopic RBC 0-3 per hpf (0-3) 05/20/18 06:07 Urine Microscopic WBC 0-3 per hpf (0-3) 05/20/18 06:07 Ur Squamous Epith Cells Many per lpf (None-Few) H 05/20/18 06:07 Urine Bacteria None Seen per hpf (None-Few) 05/20/18 06:07 Hyaline Casts None Seen per lpf (None-Few) 05/20/18 06:07 Ur Culture Indicated? NO (NO) 05/20/18 06:07 Result diagrams: 05/20/18 03:57 05/20/18 03:57 Lab Results 05/20/18 05/20/18 05/20/18 Range/Units 03:57 03:57 03:57 WBC 7.1 (4.3-11.1) K/mcL RBC 5.00 H (3.82-4.97) M/mcL Hgb 14.3 (11.5-15.4) g/dL Hct 44.7 (35.3-44.9) % MCV 89.4 (83.0-100.0) fL MCH 28.6 (28.0-33.3) pg MCHC 32.0 (31.6-35.5) g/dL RDW 15.4 H (11.5-14.5) % Plt Count 212 (140-400) K/mcL MPV 10.2 (9.4-12.4) fL Immature Gran % 0.3 (0-4) % Seg Neutrophils % 79.5 % Lymphocytes % 12.6 % Monocytes % 5.2 % Eosinophils % 2.1 % Basophils % 0.3 % Neutrophils # 5.7 (1.6-8.9) K/mcL Lymphocytes # 0.9 (0.6-4.6) K/mcL Monocytes # 0.4 (0.0-1.3) K/mcL Eosinophils # 0.2 (0.0-0.6) K/mcL Basophils # 0.0 (0.0-0.2) K/mcL Sodium 139 (136-145) mEq/L Potassium 4.4 (3.5-5.1) mEq/L Chloride 106 (98-107) mEq/L Carbon Dioxide 23 (23-29) mEq/L BUN 13 (6-20) mg/dL Creatinine 1.47 H (0.60-1.20) mg/dL Est GFR ( Amer) 45 L (> 60) Est GFR (Non-Af Amer) 37 L (> 60) BUN/Creatinine Ratio 9 (6-26) Glucose 173 H (70-105) mg/dL Calculated Osmolality 292 (280-300) Lactic Acid 0.9 (0.5-2.2) mmol/L Calcium 9.9 (8.6-10.3) mg/dL Total Bilirubin 0.7 (0.3-1.0) mg/dL Direct Bilirubin 0.1 (0.0-0.2) mg/dL Indirect Bilirubin 0.6 (0.0-1.2) mg/dL AST 10 L (13-39) Units/L ALT 11 (7-52) Units/L Alkaline Phosphatase 85 (34-104) Units/L Serum Total Protein 8.0 (6.4-8.9) g/dL Albumin 4.3 (3.5-5.7) g/dL Globulin 3.7 H (2.4-3.5) g/dL Albumin/Globulin Ratio 1.2 (1.1-2.2) Amylase 41 (29-103) Units/L Lipase 52 (11-82) Units/L Urine Color (Yellow) Urine Clarity (Clear) Urine pH (5.0-8.0) pH Units Ur Specific [place] (1.010-1.025) Urine Protein (Neg-Trace) mg/dL Urine Glucose (UA) (Normal) mg/dL Urine Ketones (Negative) mg/dL Urine Blood (Negative) Urine Nitrite (Negative) Urine Bilirubin (Negative) Urine Urobilinogen (Normal) mg/dL Ur Leukocyte Esterase (Negative) Urine Microscopic RBC (0-3) per hpf Urine Microscopic WBC (0-3) per hpf Ur Squamous Epith Cells (None-Few) per lpf Urine Bacteria (None-Few) per hpf Hyaline Casts (None-Few) per lpf Ur Culture Indicated? (NO) 05/20/18 Range/Units 06:07 WBC (4.3-11.1) K/mcL RBC (3.82-4.97) M/mcL Hgb (11.5-15.4) g/dL Hct (35.3-44.9) % MCV (83.0-100.0) fL MCH (28.0-33.3) pg MCHC (31.6-35.5) g/dL RDW (11.5-14.5) % Plt Count (140-400) K/mcL MPV (9.4-12.4) fL Immature Gran % (0-4) % Seg Neutrophils % % Lymphocytes % % Monocytes % % Eosinophils % % Basophils % % Neutrophils # (1.6-8.9) K/mcL Lymphocytes # (0.6-4.6) K/mcL Monocytes # (0.0-1.3) K/mcL Eosinophils # (0.0-0.6) K/mcL Basophils # (0.0-0.2) K/mcL Sodium (136-145) mEq/L Potassium (3.5-5.1) mEq/L Chloride (98-107) mEq/L Carbon Dioxide (23-29) mEq/L BUN (6-20) mg/dL Creatinine (0.60-1.20) mg/dL Est GFR ( Amer) (> 60) Est GFR (Non-Af Amer) (> 60) BUN/Creatinine Ratio (6-26) Glucose (70-105) mg/dL Calculated Osmolality (280-300) Lactic Acid (0.5-2.2) mmol/L Calcium (8.6-10.3) mg/dL Total Bilirubin (0.3-1.0) mg/dL Direct Bilirubin (0.0-0.2) mg/dL Indirect Bilirubin (0.0-1.2) mg/dL AST (13-39) Units/L ALT (7-52) Units/L Alkaline Phosphatase (34-104) Units/L Serum Total Protein (6.4-8.9) g/dL Albumin (3.5-5.7) g/dL Globulin (2.4-3.5) g/dL Albumin/Globulin Ratio (1.1-2.2) Amylase (29-103) Units/L Lipase (11-82) Units/L Urine Color Yellow (Yellow) Urine Clarity Clear (Clear) Urine pH 6.0 (5.0-8.0) pH Units Ur Specific [place] 1.011 (1.010-1.025) Urine Protein Trace (Neg-Trace) mg/dL Urine Glucose (UA) Normal (Normal) mg/dL Urine Ketones Negative (Negative) mg/dL Urine Blood Negative (Negative) Urine Nitrite Negative (Negative) Urine Bilirubin Negative (Negative) Urine Urobilinogen Normal (Normal) mg/dL Ur Leukocyte Esterase Negative (Negative) Urine Microscopic RBC 0-3 (0-3) per hpf Urine Microscopic WBC 0-3 (0-3) per hpf Ur Squamous Epith Cells Many H (None-Few) per lpf Urine Bacteria None Seen (None-Few) per hpf Hyaline Casts None Seen (None-Few) per lpf Ur Culture Indicated? NO (NO) - Radiology Data Radiology results reviewed: Yes I reviewed the patient's radiology results. Abdomen/Pelvis CT 05/20/18 04:21 IMPRESSION: 1. Cholelithiasis. Question small pericholecystic fluid. Correlate for right upper quadrant pain. The right upper quadrant ultrasound can be performed if clinically appropriate. 2. Otherwise no acute noncontrast findings in the abdomen or pelvis. 3. Fibroid uterus. D/ /20/2018 08:33:47 Zeinab Mccray MD / Bushra Quiñones Interpreting Provider: Zeinab Mccray MD Gallbladder Ultrasound 05/20/18 06:39 IMPRESSION: Large gallstone with mild gallbladder wall thickening and pericholecystic fluid. No sonographic Powers sign. D/ / Darryl Chang MD / Darryl Chang MD Interpreting Provider: Darryl Chang MD
[2018-05-20] MEDS ORDERED: Ondansetron 4 MG/2 ML VIAL IVP PRN ×2 (11:28→22:38)
[2018-05-20] MEDS ORDERED: 0.9 % Sodium Chloride 1,000 ML IVC SCH ×2 (11:30→22:38)
[2018-05-20] MEDS ORDERED: Naloxone 0.4 MG/ML INJ IVP PRN ×2 (11:35→22:38)
[2018-05-20] MEDS ORDERED: Acetaminophen 325 MG TABLET PO PRN ×2 (11:36→22:38)
[2018-05-20] MEDS ORDERED: OXYCODONE Oral CONC 10 MG/0.5 ML ORAL.SYG SL PRN ×4 (11:37→22:38)
--- NOTE | 2018-05-20 11:51 | General Surg History&Physical ---
<Aries Skelton R - Last Filed: 05/20/18 11:47> Date of Encounter: 05/20/18 Time of Encounter: 11:47 Assessment and Plan (1) Acute calculous cholecystitis Current Visit: Yes Status: Acute The assessment and plan as outlined above was discussed with the patient and/or family members who expressed understanding and agreement. All questions were answered. Patient exam and radiographic findings are consistent with acute cholecystitis. Unasyn antibiotics were administered in the emergency department. Plan: To operating room likely this evening for laparoscopic cholecystectomy IV antibiotics - ciprofloxacin and Flagyl IV fluids Comfort care pain management Incentive spirometry To ambulate 3 times a day with assistance postsurgically NPO Repeat a.m. labs (2) COPD (chronic obstructive pulmonary disease) Current Visit: No Status: Chronic The assessment and plan as outlined above was discussed with the patient and/or family members who expressed understanding and agreement. All questions were answered. We will start every 4 hours duo nebs Qualifiers: Qualified Code(s): J44.9 - Chronic obstructive pulmonary disease, unspecified (3) DVT prophylaxis Current Visit: No Status: Acute The assessment and plan as outlined above was discussed with the patient and/or family members who expressed understanding and agreement. All questions were answered. EPCD's Ambulate 3 times a day with assistance Heparin postoperatively History of Present Illness Chief complaint: Abdominal pain HPI: Ms. Alexander is a 53 year old female with a history of COPD, diabetes untreated, hyperlipidemia, hypertension, chronic kidney disease, and COPD. She presented for evaluation of abdominal and epigastric pain overnight. She describes it as "it hurt ". Pain began yesterday evening, she states that before she went to bed she felt fine. She did have associated nausea and vomiting. Denies diarrhea, constipation, fever, hematochezia, hematemesis. Patient also denies past abdominal surgical history. She denies previous occurrence of similar pain. At my examination in the ED she states her pain is less since she has received medications. She notes that she is tender in her epigastric and right upper quadrant. She denies ongoing nausea or vomiting. She states that she is a diabetic, however is not on insulin or oral medications. She denies previous history of myocardial infarction or stroke. CT scan of the abdomen performed in EEG assessment revealed cholelithiasis with small pericholecystic fluid. Gallbladder ultrasound revealed large gallstones with wall thickening and pericholecystic fluid. Patient is afebrile with no leukocytosis. Past Med Surg Social Fam HX - Past Medical History Medical history: asthma, COPD, coronary artery disease, diabetes, hyperlipidemia , hypertension, renal disease, other Psychiatric history: no psych history - Past Surgical History Surgical History: non-contributory Additional surgical history: eye surgery, ear tubes - Social History Smoking Status: Current every day smoker Smokeless Tobacco Status: No Alcohol use: none Drug use: none - Family History Mother Adopted: No Family Member Ethnicity: Non- Living Status: Hx Family Cardiac Disorders: Yes (SISTER) Hx Family Respiratory Disorders: Yes (DAD) Hx Family Cancer: No Hx Family GI Disorders: No Hx Family Endocrine Disorder: Yes (MOTHER) Hx Family Neuromuscular Disorders: No Hx Family Neurologic Disorders: No Hx Family HEENT Disorders: No Hx Family Autoimmune Disorders: No Father Living Status: Hx Family Cancer: Yes (Lung CA) Medications and Allergies Carvedilol 3.125 mg PO BID 08/06/15 [History] Albuterol Sulfate [Ventolin Hfa] 2 puff IH Q6H PRN 11/29/15 [History] Pantoprazole Sodium [Protonix] 40 mg PO DAILY 11/29/15 [History] Tiotropium [Spiriva] 18 mcg IH DAILY 03/13/17 [History] Gabapentin [Neurontin] 300 mg PO TID #90 capsule 03/15/17 [Rx] OxyCODONE/APAP 5/325 [Percocet 5/325 MG] 1 tab PO TID PRN #30 tablet 03/15/17 [ Rx] Ergocalciferol (VITAMIN D2) [Vitamin D2] 50,000 unit PO SON 11/09/17 [History] Losartan [Cozaar] 25 mg PO DAILY 11/09/17 [History] Budesonide/Formoterol 80/4.5 [Symbicort 80/4.5] 2 puff IH BID 05/20/18 [History ] Ferrous Sulfate [Ferrous Sulfate] 325 mg PO DAILY 05/20/18 [History] Levocetirizine Dihydrochloride [Allergy Relief] 5 mg PO DAILY 05/20/18 [History] Rosuvastatin Calcium [Rosuvastatin Calcium] 40 mg PO HS 05/20/18 [History] 3 Allergy/AdvReac Type Severity Reaction Status Date / Time No Known Allergies Allergy Verified 05/20/18 11:40 Review of Systems All systems PM: The remainder of the systems were reviewed and are negative - Constitutional no chills, no fever(s) - Cardiovascular no chest pain - Respiratory no dyspnea, no wheezing - Gastrointestinal abdominal pain, nausea, vomiting, no change in bowel habits, no constipation, no diarrhea, no hematemesis, no hematochezia General Surgery Exam Initial Vital Signs Temp Pulse Resp BP Pulse Ox 98.2 F 71 20 183/120 94 05/20/18 03:39 05/20/18 03:39 05/20/18 03:39 05/20/18 03:39 05/20/18 03:39 - General physical appearance no distress, no pain, obese - Eyes PERRL, normal ocular movement - ENT dry mucosa, atraumatic, normocephalic - Neck trachea midline - Respiratory normal expansion, clear to auscultation - Cardiovascular Cardiovascular exam: Present: RRR, no murmurs/rubs/gallops - Abdomen Abdomen general surgery: Present: bowel sounds present, soft, tender ( Tenderness to palpation of the epigastric and right upper quadrants.). Absent: guarding, rebound, surgical scars Abdominal Tenderness: Present: epigastic, RUQ - Integumentary Integumentary general surgery: Present: warm and dry - Neurologic Present: CN 2-12 grossly intact - Psychiatric Psychiatric general surgery: Present: A&Ox3, speech is normal Results - Labs 05/20/18 03:57 05/20/18 03:57 Abnormal lab results RBC 5.00 M/mcL (3.82-4.97) H 05/20/18 03:57 RDW 15.4 % (11.5-14.5) H 05/20/18 03:57 Creatinine 1.47 mg/dL (0.60-1.20) H 05/20/18 03:57 Est GFR ( Amer) 45 (> 60) L 05/20/18 03:57 Est GFR (Non-Af Amer) 37 (> 60) L 05/20/18 03:57 Glucose 173 mg/dL (70-105) H 05/20/18 03:57 AST 10 Units/L (13-39) L 05/20/18 03:57 Globulin 3.7 g/dL (2.4-3.5) H 05/20/18 03:57 Ur Squamous Epith Cells Many per lpf (None-Few) H 05/20/18 06:07 All other labs normal. <Thien Hillman - Last Filed: 05/20/18 15:57> Date of Encounter: 05/20/18 History of Present Illness HPI: Ms. Alexander is a 53 year old female Review of Systems All systems PM: The remainder of the systems were reviewed and are negative General Surgery Exam Initial Vital Signs Temp Pulse Resp BP Pulse Ox 98.2 F 71 20 183/120 94 05/20/18 03:39 05/20/18 03:39 05/20/18 03:39 05/20/18 03:39 05/20/18 03:39 Results - Labs 05/20/18 03:57 05/20/18 03:57 Abnormal lab results RBC 5.00 M/mcL (3.82-4.97) H 05/20/18 03:57 RDW 15.4 % (11.5-14.5) H 05/20/18 03:57 Creatinine 1.47 mg/dL (0.60-1.20) H 05/20/18 03:57 Est GFR ( Amer) 45 (> 60) L 05/20/18 03:57 Est GFR (Non-Af Amer) 37 (> 60) L 05/20/18 03:57 Glucose 173 mg/dL (70-105) H 05/20/18 03:57 AST 10 Units/L (13-39) L 05/20/18 03:57 Globulin 3.7 g/dL (2.4-3.5) H 05/20/18 03:57 Ur Squamous Epith Cells Many per lpf (None-Few) H 05/20/18 06:07 All other labs normal. - Attending Attestation I examined this patient and my medical decision-making was reviewed with the Resident Physician. I agree with the documented findings, disposition and treatment plan as described except to the extent set forth below. The patient is seen and evaluated on the floor with the resident she is complaining bitterly of right upper quadrant pain. She sought evaluation in the emergency room. CAT scan and ultrasound demonstrated evidence of acute cholecystitis. We will plan laparoscopic cholecystectomy later today. Thien Hillman MD FACS
[2018-05-20] MEDS: MetroNIDAZOLE 500 MG/100 ML 500 MG/100 ML BAG IVPB SCH ×2 (14:41→22:43)
[2018-05-20] MEDS ORDERED: Pantoprazole 40 MG VIAL IVP SCH (15:00)
[2018-05-20] MEDS: Ipratropium/Albuterol Neb 3 ML IH SCH ×4 (15:19→23:12)
--- NOTE | 2018-05-20 19:12 | Anesthesia Evaluation PreOp ---
Date of Encounter: 05/20/18 Time of Encounter: 19:10 - Past History Planned Operation: Lap. Merari Cardiac History: HTN, Hyperlipidemia Pulmonary History: Smoker, Asthma, COPD AS400 ADMINISTRATOR History: Denies Any Significant HX Other Medical History: Renal (CRD Stage 3), Diabetes Type II, Other (SMO BMI-52) Anesthesia History: No Prior Anesthetic Complications, Past Anesthesia (eye surgery, ear tubes) : No Alcohol Use: none Drug use: none Medications and Allergies Carvedilol 3.125 mg PO BID 08/06/15 [History] Albuterol Sulfate [Ventolin Hfa] 2 puff IH Q6H PRN 11/29/15 [History] Pantoprazole Sodium [Protonix] 40 mg PO DAILY 11/29/15 [History] Tiotropium [Spiriva] 18 mcg IH DAILY 03/13/17 [History] Gabapentin [Neurontin] 300 mg PO TID #90 capsule 03/15/17 [Rx] OxyCODONE/APAP 5/325 [Percocet 5/325 MG] 1 tab PO TID PRN #30 tablet 03/15/17 [ Rx] Ergocalciferol (VITAMIN D2) [Vitamin D2] 50,000 unit PO SON 11/09/17 [History] Losartan [Cozaar] 25 mg PO DAILY 11/09/17 [History] Budesonide/Formoterol 80/4.5 [Symbicort 80/4.5] 2 puff IH BID 05/20/18 [History ] Ferrous Sulfate [Ferrous Sulfate] 325 mg PO DAILY 05/20/18 [History] Levocetirizine Dihydrochloride [Allergy Relief] 5 mg PO DAILY 05/20/18 [History] Rosuvastatin Calcium [Rosuvastatin Calcium] 40 mg PO HS 05/20/18 [History] 3 Allergy/AdvReac Type Severity Reaction Status Date / Time No Known Allergies Allergy Verified 05/20/18 11:40 - Meds/Allergy Pre-op Review Medications Reviewed: Yes Allergies Reviewed: Yes Beta Blockers on Current Med List: No Anesthesia Results - Labs 05/20/18 03:57 05/20/18 03:57 Echocardiogram Name: Ada Alexander Date of Study: 12/01/2015 Impressions: LVEF 60%. Mild concentric left ventricular hypertrophy. Moderate left ventricular diastolic dysfunction. Normal right ventricular structure and function. Moderate biatrial enlargement. Mild mitral regurgitation. Mild pulmonary hypertension. - Imaging EKG: report reviewed (SR) Anesthesia Exam Vital Signs/O2 Sat, Most Current Temp Pulse Resp BP Pulse Ox 97.7 F 43 18 116/75 94 05/20/18 15:12 05/20/18 15:12 05/20/18 16:19 05/20/18 15:12 05/20/18 16:19 Blood glucose: 103 Height: 5'5'' Weight: 315# NPO (# of Hours): > 8 hrs Pain Scale: 0 Pain Scale Used: Numeric (1 - 10) - HEENT Pupil (Motor): EOMI Mallampati: II Teeth: Missing, Poor dentition Oral Opening: Greater than 3 - AS400 ADMINISTRATOR LOC: Oriented AS400 ADMINISTRATOR Motor: Normal RUE, Normal LUE, Normal RLE, Normal LLE, Normal Face AS400 ADMINISTRATOR Sensory: Normal: RUE, LUE, RLE, LLE, Face - Cardiac Rhythm: Regular Murmur: None JVD: No Carotid Bruit: No - Pulmonary Breath Sounds: bilateral Clear Respiratory Effort: Symmetrical Anesthesia Assess/Plan ASA Score: 4 Modified Ambreen Scale for Level of Consciousness: Cooperative, oriented, and tranquil Anesthetic Plan: General Autologous Blood: Yes Monitoring Plan: Standard Monitors Recovery Plan: PACU
[2018-05-20] MEDS ORDERED: *HR* Labetalol 20 MG/4 ML SYRINGE IVP PRN ×2 (19:15→22:38)
[2018-05-20] MEDS ORDERED: Acetaminophen IV 1,000 MG/100 ML INFUS..BTL IVPB ONE ×2 (19:15→22:38)
[2018-05-20] MEDS ORDERED: *HR* FentaNYL (PF) 100 MCG/2 ML VIAL IVP PRN ×2 (19:15→22:38)
[2018-05-20] MEDS ORDERED: *HR* Promethazine 25 MG/ML VIAL IVP PRN ×2 (19:15→22:38)
[2018-05-20] MEDS ORDERED: *HR* FentaNYL (PF) 100 MCG/2 ML VIAL ONE (19:22)
[2018-05-20] MEDS ORDERED: *HR* Midazolam HCl 2 MG/2 ML VIAL ONE (19:22)
[2018-05-20] MEDS ORDERED: *HR* Propofol 200 MG/20 ML VIAL IVP ONE ×2 (19:22→20:08)
[2018-05-20] MEDS ORDERED: *HR* Rocuronium Bromide 50 MG/5 ML VIAL ONE (19:26)
[2018-05-20] MEDS ORDERED: Lidocaine -MPF 2% 2 ML VIAL ONE (19:26)
[2018-05-20] MEDS ORDERED: Ondansetron 4 MG/2 ML VIAL ONE (19:26)
[2018-05-20] MEDS ORDERED: Dexamethasone 4 MG/ML VIAL ONE (19:26)
[2018-05-20] MEDS ORDERED: *HR* Succinylcholine 200 MG/10 ML VIAL IVP ONE (19:26)
[2018-05-20] MEDS ORDERED: Isovue-300 50 ML VIAL IVP ONE (19:31)
[2018-05-20] MEDS ORDERED: CefOXitin 1,000 MG VIAL ONE (19:31)
[2018-05-20] MEDS ORDERED: CefOXitin 2,000 MG VIAL ONE (20:15)
[2018-05-20] MEDS: Albuterol 2.5 MG/3 ML NEBULIZER IH ONE ×2 (20:18→21:47)
[2018-05-20] MEDS ORDERED: cefOXitin 2,000 MG in Water for inj. (sterile) 20 ML 20 ML IVP ONE (20:18)
--- NOTE | 2018-05-20 21:14 | Operative Note ---
Date of procedure: 05/20/18 Pre-op diagnosis: Acute cholecystitis and cholelithiasis Post-op diagnosis: same Procedure: Laparoscopic cholecystectomy, cholangiogram +30% (body mass index 52) Anesthesia: BETTEA Surgeon: Thien Hillman Was there an social human services assistants present: Yes Riveter Hand: Adela Jolley Estimated blood loss (cc): 20 Specimen: gallbladder incontinence Condition: stable Disposition: PACU Procedure in Detail: Laparoscopic cholecystectomy and intraoperative cholangiogram +30% (body mass index 52) Operative procedure after informed consent and appropriate patient identification timeout the patient was taken to the major operating suite and placed supine position given adequate general endotracheal anesthesia the abdomen is prepped and draped in sterile fashion utilizing ChloraPrep standard draping techniques timeout was taken patient is identified. I made a vertical midline incision below the umbilicus dissected down to level of fascia there are 2 traction stitches placed in the abdominal cavity was entered visually. A Edouard trocar was placed in the abdomen and the abdomen was insufflated to 15 mmHg pressure CO2 the gallbladder was visualized. A placement 11 port in the subxiphoid area and 2 5 mm ports in the subcostal area. Visualization was limited by profound morbid obesity which added 20 minutes to the dissection time and made the dissection technically more difficult The gallbladder was grasped and elevated. A variety of blunt and sharp dissection techniques were used to isolate the cystic duct and cystic artery. The cystic artery was controlled with 2 surgical clips proximally and one distally and it was divided I placed a surgical clip on the neck the gallbladder and obtained an intraoperative cholangiogram using 10 mL of Isovue. Intraoperative cholangiogram was normal. There was early fill of the pancreatic duct and I stopped pushing additional contrast material and I saw this to prevent pancreatitis. The cholangiocatheter was removed and the cystic duct was controlled with 2 surgical clips proximally and was divided the gallbladder was removed from the gallbladder fossae using electrocautery. The gallbladder was removed through the #11 port site. I used a specimen bag and the fascia needed to be enlarged to get the gallbladder out. This is subsequently closed with 0 Nurolon I replaced the #11 port and irrigated with copious amounts of antibiotic containing solution. There is no evidence of bleeding or bile leak. All trochars were removed. Fascia was closed with 0 Vicryl skin with 2-0 and 4-0 Vicryl he tolerated the procedure well and was transferred to recovery in stable condition
--- NOTE | 2018-05-20 21:59 | Anesthesia Evaluation Post Op ---
Date of Encounter: 05/20/18 Time of Encounter: 21:58 - Vital Signs Vital Signs: Vital Signs/O2 Sat, Most Current Temp Pulse Resp BP Pulse Ox 97.5 F L 55 20 172/75 94 05/20/18 22:00 05/20/18 22:10 05/20/18 22:10 05/20/18 22:10 05/20/18 22:10 - Lungs Lungs: Clear Ascult./Percussion - Airway Airway: Non-obstructed - Cardiovascular Regular Rate - Mental Status Mental Status: Alert & Oriented, Answers Appropriately - Pain Pain Scale: 0 Pain Scale used: Numeric (1 - 10) - Nausea Vomiting Nausea Vomiting: Not Present - Hydration Hydration: NPO, Has not voided - Discharge PostOp Status: Transfer Patient to floor
[2018-05-21] MEDS: Ipratropium/Albuterol Neb 3 ML IH SCH ×4 (03:52→16:00)
[2018-05-21] MEDS ORDERED: *HR* Heparin 5,000 UNIT/ML VIAL SQ SCH (04:00)
[2018-05-21] MEDS: MetroNIDAZOLE 500 MG/100 ML 500 MG/100 ML BAG IVPB SCH ×2 (04:19→12:18)
[2018-05-21] MEDS: *HR* Heparin 5,000 UNIT/ML VIAL SQ SCH ×2 (04:20→05:17)
[2018-05-21 04:49] LABS: Basophils % 0.1 %; Eosinophils % 0.1 %; Hematocrit 38.6 % (35.3-44.9); Immature Granulocytes % 0.4 % (0-4); Lymphocytes # 0.3 K/mcL (0.6-4.6); Mean Corpuscular HGB Conc 30.8 g/dL (31.6-35.5); Mean Corpuscular Volume 90.8 fL (83.0-100.0); Mean Platelet Volume 9.4 fL (9.4-12.4); Monocytes # 0.2 K/mcL (0.0-1.3); Monocytes % 2.2 %; Neutrophils # 6.3 K/mcL (1.6-8.9); Platelet Count 149 K/mcL (140-400); Red Blood Count 4.25 M/mcL (3.82-4.97); Red Cell Distribution Width 15.2 % (11.5-14.5); Segmented Neutrophils % 92.2 %
[2018-05-21 04:54] LABS: Hemoglobin 11.9 g/dL (11.5-15.4)
[2018-05-21 05:15] LABS: Calcium 8.7 mg/dL (8.6-10.3); Potassium 4.9 mEq/L (3.5-5.1)
[2018-05-21 06:30] VITALS: BP 126/80
[2018-05-21] MEDS ORDERED: Pantoprazole 40 MG VIAL IVP SCH (09:00)
--- NOTE | 2018-05-21 09:32 | Discharge Summary ---
<Concepción Pedroza - Last Filed: 05/21/18 09:30> Orders not resulted at time of discharge: Pending orders 05/20/18 21:01 Surgical Pathology [PTH] Routine Date of Encounter: 05/21/18 Time of Encounter: 07:00 - Discharge Diagnosis (1) Acute calculous cholecystitis Priority: Primary Status: Resolved (2) Tobacco abuse Priority: Secondary Status: Chronic (3) Morbid obesity with BMI of 50.0-59.9, adult Priority: Secondary Status: Chronic (4) COPD (chronic obstructive pulmonary disease) Priority: Secondary Status: Chronic Qualifiers: COPD type: unspecified COPD Qualified Code(s): J44.9 - Chronic obstructive pulmonary disease, unspecified General Surgery Exam Initial Vital Signs Temp Pulse Resp BP Pulse Ox 98.2 F 71 20 183/120 94 05/20/18 03:39 05/20/18 03:39 05/20/18 03:39 05/20/18 03:39 05/20/18 03:39 Vital Signs Temp Pulse Resp BP Pulse Ox 05/21/18 07:37 14 95 05/21/18 06:29 97.6 F 54 14 126/80 95 05/21/18 04:15 97.3 F L 55 12 138/87 95 05/21/18 03:52 14 95 05/21/18 01:00 97.3 F L 44 12 134/79 95 05/21/18 00:00 97.3 F L 46 16 138/76 94 05/20/18 23:30 97.3 F L 46 16 147/73 94 05/20/18 23:12 16 95 05/20/18 23:00 95 05/20/18 22:53 97.3 F L 50 18 165/115 95 05/20/18 22:10 55 20 172/75 94 05/20/18 22:00 97.5 F L 65 18 153/83 89 05/20/18 21:50 56 18 157/79 96 05/20/18 21:40 63 18 152/81 91 05/20/18 21:30 97.2 F L 64 22 140/84 90 05/20/18 16:19 18 94 05/20/18 15:12 97.7 F 43 16 116/75 94 05/20/18 11:46 97.4 F L 90 18 137/83 96 05/20/18 10:03 53 15 160/90 96 Intake and Output 05/20/18 05/21/18 05/21/18 23:59 07:59 15:59 Intake Total 0 / 0 0 / 0 300 / 300 Output Total 20 / 20 900 / 900 Balance -20 / -20 -900 / -900 300 / 300 Intake: IV Fluids 300 / 300 Cipro Premix 400 MG/200 ML 400 200 / 200 mg In 200 ml @ 200 mls/hr IVPB Q12H [facility] Rx#:[id number] Flagyl Premix 500 MG/100 ML 500 100 / 100 mg In 100 ml @ 100 mls/hr IVPB Q8H [facility] Rx#:[id number] Oral 0 / 0 0 / 0 Output: Urine 900 / 900 Estimated Blood Loss Other: Meal NPO Dinner Percent of Meal Consumed 0% Blood Glucose* 121 VITAL SIGNS: Reviewed. See [facility] GENERAL: In no apparent distress. HEENT: Normocephalic, atraumatic, pupils are equal and reactive, extraocular motions intact, oropharynx is pink and moist, there is no neck adenopathy or JVD noted. CHEST/RESPIRATORY: The thorax is free from signs of trauma. Lung sounds: decreased, decreased respiratory effort CARDIAC: Regular rate and rhythm. Normal S1 and S2, without murmurs, gallops, or rubs. VASCULAR: No Edema. 2+ peripheral pulses. ABDOMEN: soft, expected postoperative tenderness, hypoactive bowel sounds INCISION: Surgical incision is clean, dry, and intact. There are no signs of cellulitis or infection noted. MUSCULOSKELETAL: Good range of motion of all major joints. Extremities without clubbing, cyanosis or edema. NEUROLOGIC EXAM: Alert and oriented x 3. Speech normal. Follows commands. PSYCHIATRIC: Mood normal. SKIN: No rash or lesions. - Hospital Course Hospital course: Ms. Alexander is a 53 year old female /09/2018 with complaints of abdominal and epigastric pain. Her exam and imaging were consistent with acute cholecystitis. Antibiotics were started in the emergency department. She was taken to the operating room on 05/20/2018 where she underwent an uncomplicated laparoscopic cholecystectomy. Her hospital course was complicated by were pulmonary participation/progression. Respiratory therapy was consult did for aggressive pulmonary toileting and scheduled nebulizer treatments in the setting of history of COPD and recent surgery. Her oxygen was weaned to her baseline. We will begin discharge planning to home with a follow-up in the office in approximately 2 weeks. She will be discharged on a seven-day course of Cipro and Flagyl. She is given ibuprofen and stool softeners. She is reminded that she can continue her home narcotic use for breakthrough pain. Time spent discussing smoking cessation with patient: 3 to 10 minutes - Time Spent with Patient Total time spent providing and/or coordinating discharge services: Less than 30 minutes - Discharge Medications Prescriptions: Ciprofloxacin HCl [Cipro] 500 mg PO BID #14 tablet Docusate Sodium [Colace] 100 mg PO BID #30 capsule Ibuprofen [Ibu] 800 mg PO Q8H #60 tablet metroNIDAZOLE [Flagyl] 500 mg PO TID #21 tablet Home Medications: Carvedilol 3.125 mg PO BID 08/06/15 [History] Albuterol Sulfate [Ventolin Hfa] 2 puff IH Q6H PRN 11/29/15 [History] Pantoprazole Sodium [Protonix] 40 mg PO DAILY 11/29/15 [History] Tiotropium [Spiriva] 18 mcg IH DAILY 03/13/17 [History] Gabapentin [Neurontin] 300 mg PO TID #90 capsule 03/15/17 [Rx] OxyCODONE/APAP 5/325 [Percocet 5/325 MG] 1 tab PO TID PRN #30 tablet 03/15/17 [ Rx] Ergocalciferol (VITAMIN D2) [Vitamin D2] 50,000 unit PO SON 11/09/17 [History] Losartan [Cozaar] 25 mg PO DAILY 11/09/17 [History] Budesonide/Formoterol 80/4.5 [Symbicort 80/4.5] 2 puff IH BID 05/20/18 [History ] Ferrous Sulfate 325 mg PO DAILY 05/20/18 [History] Levocetirizine Dihydrochloride [Allergy Relief] 5 mg PO DAILY 05/20/18 [History] Rosuvastatin Calcium 40 mg PO HS 05/20/18 [History] Ciprofloxacin HCl [Cipro] 500 mg PO BID #14 tablet 05/21/18 [Rx] Docusate Sodium [Colace] 100 mg PO BID #30 capsule 05/21/18 [Rx] Ibuprofen [Ibu] 800 mg PO Q8H #60 tablet 05/21/18 [Rx] metroNIDAZOLE [Flagyl] 500 mg PO TID #21 tablet 05/21/18 [Rx] Allergies/Adverse Reactions: 3 Allergy/AdvReac Type Severity Reaction Status Date / Time No Known Allergies Allergy Verified 05/20/18 11:40 Date of admission: 05/20/18 10:59 Primary care physician: Shalonda Crowell MD Discharging clinician: Thien Pedroza) Anticipated date of discharge: 05/21/18 Labs on day of discharge: Labs from last 24 hours 05/21/18 05/21/18 05/20/18 04:38 04:38 17:00 WBC 6.8 RBC 4.25 Hgb 11.9 D Hct 38.6 MCV 90.8 MCH 28.0 MCHC 30.8 L RDW 15.2 H Plt Count 149 MPV 9.4 Immature Gran % 0.4 Seg Neutrophils % 92.2 Lymphocytes % 5.0 Monocytes % 2.2 Eosinophils % 0.1 Basophils % 0.1 Neutrophils # 6.3 Lymphocytes # 0.3 L Monocytes # 0.2 Eosinophils # 0.0 Basophils # 0.0 Sodium 139 Potassium 4.9 Chloride 108 H Carbon Dioxide 25 BUN 13 Creatinine 1.22 H Est GFR ( Amer) 56 L Est GFR (Non-Af Amer) 46 L BUN/Creatinine Ratio 11 Glucose 189 H POC Glucose 103 H Calculated Osmolality 293 Calcium 8.7 - Patient Status Disposition: Home, Self-Care Condition: Fair Functional capacity at discharge: independent ambulation Overall status at discharge: patient is progressing back to baseline - Discharge Instructions Instructions: Laparoscopic Cholecystectomy (DC), Chronic Obstructive Pulmonary Disease (DC) Follow Up With: Concepción Pedroza CNP [Advanced Practice Nurse] - 05/30/18 2:30 pm Shalonda Crowell MD [Primary Care Provider] - Additional Instructions: General Surgical Discharge Instructions 1. No pushing, pulling, or lifting greater than 15 lbs for 2-4 weeks (depending upon procedure). 2. You may shower beginning today, but no tub baths, soaking, or swimming for 2 weeks. 3. You may resume driving when you are off narcotics and are safe to react in a car. 4. Take ibuprofen every 8 hours for discomfort. If this does not relieve discomfort, you may take the as needed Percocet. Take narcotics as directed. Do not take more narcotics then directed and do not share your narcotics with any other person. Do not drink alcohol while on narcotics. 5. Take stool softeners (Colace) or a water based laxative (Miralax) while taking narcotics. You may hold for loose stools. 6. Report any fevers greater than 100.5F, increase abdominal discomfort, drainage that looks like pus, increased redness or pain at the surgical site, or any vomiting. 7. Report any pain in the calves, shortness of breath, or rapid heartbeat. 8. Follow-up in the office as directed. 9. If you were prescribed antibiotics, do not stop them without talking to your provider. Continue using her incentive spirometry 10 times every hour while awake at home. Do NOT drink any alcohol while taking metronidazole. Refrain from alcohol use for 48 hours after completing metronidazole. If you drink alcohol while taking metronidazole it can cause - Diet and Activity Activity: increase activity as tolerated Diet: advance to your usual diet <Thien Hillman - Last Filed: 05/23/18 08:23> Orders not resulted at time of discharge: Pending orders 05/20/18 21:01 Surgical Pathology [PTH] Routine Date of Encounter: 05/21/18 General Surgery Exam Initial Vital Signs Temp Pulse Resp BP Pulse Ox 98.2 F 71 20 183/120 94 05/20/18 03:39 05/20/18 03:39 05/20/18 03:39 05/20/18 03:39 05/20/18 03:39 - Hospital Course Hospital course: Ms. Alexander is a 53 year old female - Time Spent with Patient Total time spent providing and/or coordinating discharge services: Date of admission: 05/20/18 10:59 Primary care physician: Shalonda Crowell MD Consults: 05/21/18 09:36 Consult to Respiratory Therapy [CONS] Stat Reason for Consult: Aggressive pulm toileting; wean O2 to baseline Time Notified: 09:25 Call Completed: Yes - Attending Attestation I examined this patient and my medical decision-making was reviewed with the Resident Physician. I agree with the documented findings, disposition and treatment plan as described except to the extent set forth below. The patient is seen and evaluated on morning rounds with the surgical appliance fitter and the clinical nurse practitioner. The patient had laparoscopic cholecystectomy. She has done quite well from the procedure and is ready for discharge. Thien Hillman MD FACS
[2018-05-21] MEDS ORDERED: Tiotropium 18 MCG inhalation IH SCH (10:00)
[2018-05-21] MEDS ORDERED: Budesonide/Formoterol 80/4.5 MDI IH SCH (10:00)
[2018-05-21] MEDS: Gabapentin 300 MG CAPSULE PO SCH ×2 (10:05→14:27)
== END 2018-05-21 17:50 | disposition home or self-care (01) ==
LOC: 3ANU 03:36 → EMEROOARM 03:36 → 3ANU 12:00
PROVIDERS: ADMIT Surgery; ATTEND Surgery

== ENCOUNTER 2018-05-25 20:39 | Inpatient (IN) ==
--- NOTE | 2018-05-25 21:12 | Emergency Department Note ---
Disposition Clinical Impression: Acute exacerbation of chronic obstructive airways disease, HCAP (healthcare- associated pneumonia), Hypoxemia Disposition: Admitted As Inpatient Condition: Fair Referrals: Shalonda Crowell MD [Primary Care Provider] - Forms: ED Satisfaction Letter Time of Disposition: 00:07 SOB HPI - General Chief Complaint: ED Shortness of Breath/Dyspnea Stated Complaint: "pneumonia" Time Seen by Provider: 05/25/18 21:00 Source: patient, family Nursing Notes Reviewed: Yes Vital Signs Reviewed: Yes - History of Present Illness 53 y.o. female with a PMHx significant for asthma and COPD who presents to the ED c/o sudden onset shortness of breath and cough x earlier today. She states onset occurred while she was sitting down and has been continuous. She describes the cough as productive of green sputum. She reports associated chest and back pain, worse on deep inspiration and laying flat, as well as wheezing and nausea. She denies any other relieving or exacerbating factors. She had a previous episode of pneumonia earlier this year and believes this feels similar. She had a cholecystectomy on 05/20/18 with no significant complications. She denies any fever, chills, or abd pain. She denies history of DVT or PE. Pt Subjective Complaint: shortness of breath, cough, pain with inspiration, chest pain Onset (ago): hour(s) Consistency/Duration: constant Improves with: nothing Worsens with: lying flat, inspiration Known history of: COPD, asthma Associated symptoms: Reports: chest pain, pain with inspiration, cough, wheezing , sputum production, nausea/vomiting. Denies: fever, hemoptysis, abdominal pain Treatment prior to arrival: none Cough present: Yes Cough Description: Involuntary, Productive Cough Frequency: Intermittent Sputum production: Yes Sputum Color: Green - Related Data Home Medications Medication Instructions Recorded Confirmed Carvedilol 3.125 mg PO BID 08/06/15 05/20/18 Albuterol Sulfate [Ventolin Hfa] 2 puff IH Q6H PRN 11/29/15 05/20/18 Pantoprazole Sodium [Protonix] 40 mg PO DAILY 11/29/15 05/20/18 Tiotropium [Spiriva] 18 mcg IH DAILY 03/13/17 05/20/18 Ergocalciferol (VITAMIN D2) 50,000 unit PO SON 11/09/17 05/20/18 [Vitamin D2] Losartan [Cozaar] 25 mg PO DAILY 11/09/17 05/20/18 Budesonide/Formoterol 80/4.5 2 puff IH BID 05/20/18 05/20/18 [Symbicort 80/4.5] Ferrous Sulfate 325 mg PO DAILY 05/20/18 05/20/18 Levocetirizine Dihydrochloride 5 mg PO DAILY 05/20/18 05/20/18 [Allergy Relief] Rosuvastatin Calcium 40 mg PO HS 05/20/18 05/20/18 Previous Rx's Medication Instructions Recorded Gabapentin [Neurontin] 300 mg PO TID #90 capsule 03/15/17 OxyCODONE/APAP 5/325 [Percocet 1 tab PO TID PRN #30 tablet 03/15/17 5/325 MG] Ciprofloxacin HCl [Cipro] 500 mg PO BID #14 tablet 05/21/18 Docusate Sodium [Colace] 100 mg PO BID #30 capsule 05/21/18 Ibuprofen [Ibu] 800 mg PO Q8H #60 tablet 05/21/18 metroNIDAZOLE [Flagyl] 500 mg PO TID #21 tablet 05/21/18 Allergies Allergy/AdvReac Type Severity Reaction Status Date / Time No Known Allergies Allergy Verified 05/20/18 11:40 All systems ED: reviewed and negative except as stated. Constitutional: Denies: fever, chills Cardiovascular: Reports: chest pain. Denies: palpitations Respiratory: Reports: cough, wheezes, sputum production. Denies: hemoptysis Gastrointestinal: Reports: nausea. Denies: abdominal pain, vomiting, diarrhea Musculoskeletal: Reports: back pain Neurological: Denies: headache, weakness, numbness Past Medical History - Past Medical History Attestation: Yes The following information was validated with the patient. Source: patient Medical history: Reports: asthma, COPD, coronary artery disease, diabetes, hyperlipidemia, hypertension, renal disease, other Surgical history: Reports: non-contributory Psychiatric history: Reports: no psych history SDE history: Reports: no SDE history - Social History Smoking Status: Current every day smoker Smokeless Tobacco Status: No Alcohol use: Reports: none Drug use: Reports: none Physical Exam - General General appearance: alert, in no apparent distress - Head Head exam: atraumatic, normocephalic, normal inspection - Eye Eye exam: Present: EOMI - ENT ENT exam: normal exam, normal oropharynx, mucous membranes moist - Neck Neck exam: Present: normal inspection, full ROM, trachea midline - Chest Chest inspection: Present: normal inspection, symmetric chest wall rise - Respiratory Respiratory exam: Present: wheezes (diffusely) - Cardiovascular Cardiovascular exam: Present: regular rate, normal rhythm, normal heart sounds - Abdominal Exam Abdominal exam: Present: soft, Non-Tender. Absent: tenderness, distention, guarding, rebound, rigidity - Extremities Exam Extremities exam: Present: normal inspection, full ROM. Absent: tenderness, pedal edema - Back Exam Back exam: Present: normal inspection, full ROM. Absent: tenderness - Neurological Exam Neurological exam: Present: alert, oriented X3 - Psychiatric Psychiatric exam: Present: normal affect, normal mood - Skin Skin exam: Present: warm, dry, intact, normal color Course Course Narrative: Patient seen and examined. Patient concerned about possible pneumonia. Has had difficulty breathing over the last several days with a productive green cough. Patient recently had called bladder surgery approximately [address] Hillman. States she has not been using her incentive spirometer. She does have a history of COPD. Upon my examination, she is diffusely wheezy. Respiratory therapy was called to administer 3 breathing treatments as well as Solu-Medrol. Due to patient's hypoxemia at 87% on room air, we will likely admit for hypoxemia, COPD exacerbation, possible hospital-acquired pneumonia. - Reevaluation(s) Reevaluation #1: Labwork unremarkable. Chest x-ray is clear. However due to the patient's symptoms of the productive cough, we will go ahead and cover for hospital- acquired pneumonia with one dose of vancomycin and Zosyn. Blood cultures were ordered. I discussed with the hospitalist Dr. Gibson who has accepted patient for admission. Time: 00:05 Vital Signs Temperature 98.1 F 05/25/18 20:50 Pulse Rate 85 05/25/18 20:50 Respiratory Rate 22 05/25/18 20:50 Blood Pressure 159/89 05/25/18 20:50 O2 Sat by Pulse Oximetry 90 05/25/18 20:50 Temperature 98.1 F 05/25/18 20:50 Pulse Rate 85 05/25/18 23:20 Respiratory Rate 20 05/25/18 23:20 Blood Pressure 145/84 05/25/18 23:20 O2 Sat by Pulse Oximetry 98 05/25/18 23:20 Oxygen Delivery Oxygen Delivery Nasal Cannula Shortness of Breath/Dyspnea - Medical Records Medical records reviewed: Yes I reviewed the patient's medical records. - Lab Data Lab results reviewed: Yes I reviewed the patient's lab results. Result diagrams: 05/25/18 21:33 05/25/18 21:33 Lab Results 05/25/18 05/25/18 05/25/18 Range/Units 21:33 21:33 21:33 WBC 6.1 (4.3-11.1) K/mcL RBC 4.58 (3.82-4.97) M/mcL Hgb 13.0 (11.5-15.4) g/dL Hct 41.9 (35.3-44.9) % MCV 91.5 (83.0-100.0) fL MCH 28.4 (28.0-33.3) pg MCHC 31.0 L (31.6-35.5) g/dL RDW 15.5 H (11.5-14.5) % Plt Count 193 (140-400) K/mcL MPV 10.2 (9.4-12.4) fL Immature Gran % 0.5 (0-4) % Seg Neutrophils % 81.8 % Lymphocytes % 8.2 % Monocytes % 6.4 % Eosinophils % 2.6 % Basophils % 0.5 % Neutrophils # 5.0 (1.6-8.9) K/mcL Lymphocytes # 0.5 L (0.6-4.6) K/mcL Monocytes # 0.4 (0.0-1.3) K/mcL Eosinophils # 0.2 (0.0-0.6) K/mcL Basophils # 0.0 (0.0-0.2) K/mcL Sodium 141 (136-145) mEq/L Potassium 4.4 (3.5-5.1) mEq/L Chloride 109 H (98-107) mEq/L Carbon Dioxide 23 (23-29) mEq/L BUN 17 (6-20) mg/dL Creatinine 1.74 H (0.60-1.20) mg/dL Est GFR ( Amer) 37 L (> 60) Est GFR (Non-Af Amer) 30 L (> 60) BUN/Creatinine Ratio 10 (6-26) Glucose 145 H (70-105) mg/dL Calculated Osmolality 296 (280-300) Lactic Acid 0.8 (0.5-2.2) mmol/L Calcium 9.6 (8.6-10.3) mg/dL Troponin I < 0.03 (< 0.04) ng/mL B-Natriuretic Peptide (Less than 100) pg/mL 05/25/18 Range/Units 21:33 WBC (4.3-11.1) K/mcL RBC (3.82-4.97) M/mcL Hgb (11.5-15.4) g/dL Hct (35.3-44.9) % MCV (83.0-100.0) fL MCH (28.0-33.3) pg MCHC (31.6-35.5) g/dL RDW (11.5-14.5) % Plt Count (140-400) K/mcL MPV (9.4-12.4) fL Immature Gran % (0-4) % Seg Neutrophils % % Lymphocytes % % Monocytes % % Eosinophils % % Basophils % % Neutrophils # (1.6-8.9) K/mcL Lymphocytes # (0.6-4.6) K/mcL Monocytes # (0.0-1.3) K/mcL Eosinophils # (0.0-0.6) K/mcL Basophils # (0.0-0.2) K/mcL Sodium (136-145) mEq/L Potassium (3.5-5.1) mEq/L Chloride (98-107) mEq/L Carbon Dioxide (23-29) mEq/L BUN (6-20) mg/dL Creatinine (0.60-1.20) mg/dL Est GFR ( Amer) (> 60) Est GFR (Non-Af Amer) (> 60) BUN/Creatinine Ratio (6-26) Glucose (70-105) mg/dL Calculated Osmolality (280-300) Lactic Acid (0.5-2.2) mmol/L Calcium (8.6-10.3) mg/dL Troponin I (< 0.04) ng/mL B-Natriuretic Peptide 103 H (Less than 100) pg/mL - Radiology Data Radiology results reviewed: Yes I reviewed the patient's radiology results. Chest X-Ray 05/25/18 21:01 IMPRESSION: No acute process. D/ / Zhou Noguera MD / Zhou Noguera MD Interpreting Provider: Zhou Noguera MD - EKG Data EKG attestation: Yes I reviewed and interpreted this EKG.
[2018-05-25] MEDS ORDERED: Ipratropium/Albuterol Neb 3 ML IH ONE (21:21)
[2018-05-25] MEDS ORDERED: methylPREDNISolone 125 MG/2 ML VIAL IVP ONE (21:21)
[2018-05-25 21:50] LABS: Basophils % 0.5 %; Eosinophils # 0.2 K/mcL (0.0-0.6); Eosinophils % 2.6 %; Hematocrit 41.9 % (35.3-44.9); Immature Granulocytes % 0.5 % (0-4); Lymphocytes # 0.5 K/mcL (0.6-4.6); Lymphocytes % 8.2 %; Mean Corpuscular Hemoglobin 28.4 pg (28.0-33.3); Mean Corpuscular Volume 91.5 fL (83.0-100.0); Mean Platelet Volume 10.2 fL (9.4-12.4); Monocytes # 0.4 K/mcL (0.0-1.3); Monocytes % 6.4 %; Platelet Count 193 K/mcL (140-400); Red Blood Count 4.58 M/mcL (3.82-4.97); Red Cell Distribution Width 15.5 % (11.5-14.5); Segmented Neutrophils % 81.8 %
[2018-05-25 22:12] LABS: BUN/Creatinine Ratio 10 (6-26); Blood Urea Nitrogen 17 mg/dL (6-20); Calcium 9.6 mg/dL (8.6-10.3); Carbon Dioxide 23 mEq/L (23-29); Chloride 109 mEq/L (98-107); Glucose 145 mg/dL (70-105); Osmolality,Calculated 296 (280-300); Potassium 4.4 mEq/L (3.5-5.1); Sodium 141 mEq/L (136-145); Troponin I < 0.03 ng/mL (< 0.04); eGFR For Non-African Americans 30 (> 60)
[2018-05-25] MEDS ORDERED: Piperacillin/Tazobactam 3.375 GM in 0.9 % Sodium Chloride Mini Bag 100 ML IVPB ONE (22:41)
--- NOTE | 2018-05-26 00:24 | Emergency Department Note ---
Disposition Clinical Impression: Acute exacerbation of chronic obstructive airways disease, HCAP (healthcare- associated pneumonia), Hypoxemia Disposition: Admitted As Inpatient Condition: Fair Referrals: Shalonda Crowell MD [Primary Care Provider] - Forms: ED Satisfaction Letter SOB HPI - General Chief Complaint: ED Shortness of Breath/Dyspnea Stated Complaint: "pneumonia" Time Seen by Provider: 05/25/18 21:00 Source: patient, family Mode of arrival: ambulatory Limitations: no limitations Nursing Notes Reviewed: Yes Vital Signs Reviewed: Yes - History of Present Illness Improves with: nothing Worsens with: lying flat, inspiration Associated symptoms: Reports: chest pain, pain with inspiration, cough, wheezing , sputum production, nausea/vomiting. Denies: fever, hemoptysis, abdominal pain Treatment prior to arrival: none - Related Data Home Medications Medication Instructions Recorded Confirmed Carvedilol 3.125 mg PO BID 08/06/15 05/20/18 Albuterol Sulfate [Ventolin Hfa] 2 puff IH Q6H PRN 11/29/15 05/20/18 Pantoprazole Sodium [Protonix] 40 mg PO DAILY 11/29/15 05/20/18 Tiotropium [Spiriva] 18 mcg IH DAILY 03/13/17 05/20/18 Ergocalciferol (VITAMIN D2) 50,000 unit PO SON 11/09/17 05/20/18 [Vitamin D2] Losartan [Cozaar] 25 mg PO DAILY 11/09/17 05/20/18 Budesonide/Formoterol 80/4.5 2 puff IH BID 05/20/18 05/20/18 [Symbicort 80/4.5] Ferrous Sulfate 325 mg PO DAILY 05/20/18 05/20/18 Levocetirizine Dihydrochloride 5 mg PO DAILY 05/20/18 05/20/18 [Allergy Relief] Rosuvastatin Calcium 40 mg PO HS 05/20/18 05/20/18 Previous Rx's Medication Instructions Recorded Gabapentin [Neurontin] 300 mg PO TID #90 capsule 03/15/17 OxyCODONE/APAP 5/325 [Percocet 1 tab PO TID PRN #30 tablet 03/15/17 5/325 MG] Ciprofloxacin HCl [Cipro] 500 mg PO BID #14 tablet 05/21/18 Docusate Sodium [Colace] 100 mg PO BID #30 capsule 05/21/18 Ibuprofen [Ibu] 800 mg PO Q8H #60 tablet 05/21/18 metroNIDAZOLE [Flagyl] 500 mg PO TID #21 tablet 05/21/18 Allergies Allergy/AdvReac Type Severity Reaction Status Date / Time No Known Allergies Allergy Verified 05/20/18 11:40 Constitutional: Denies: fever, chills Cardiovascular: Reports: chest pain. Denies: palpitations Respiratory: Reports: cough, wheezes, sputum production. Denies: hemoptysis Gastrointestinal: Reports: nausea. Denies: abdominal pain, vomiting, diarrhea Musculoskeletal: Reports: back pain Neurological: Denies: headache, weakness, numbness Past Medical History - Past Medical History Medical history: Reports: asthma, COPD, coronary artery disease, diabetes, hyperlipidemia, hypertension, renal disease, other Surgical history: Reports: non-contributory Psychiatric history: Reports: no psych history PHYSIOTHERAPY ASSISTANT history: Reports: no PHYSIOTHERAPY ASSISTANT history - Social History Smoking Status: Current every day smoker Smokeless Tobacco Status: No Alcohol use: Reports: none Drug use: Reports: none Physical Exam - General General appearance: alert, in no apparent distress Course Vital Signs Temperature 98.1 F 05/25/18 20:50 Pulse Rate 85 05/25/18 20:50 Respiratory Rate 22 05/25/18 20:50 Blood Pressure 159/89 05/25/18 20:50 O2 Sat by Pulse Oximetry 90 05/25/18 20:50 Temperature 98.1 F 05/25/18 20:50 Pulse Rate 85 05/25/18 23:20 Respiratory Rate 20 05/25/18 23:20 Blood Pressure 145/84 05/25/18 23:20 O2 Sat by Pulse Oximetry 98 05/25/18 23:20 Oxygen Delivery Oxygen Delivery Nasal Cannula Shortness of Breath/Dyspnea - Lab Data Result diagrams: 05/25/18 21:33 05/25/18 21:33 Lab Results 05/25/18 05/25/18 05/25/18 Range/Units 21:33 21:33 21:33 WBC 6.1 (4.3-11.1) K/mcL RBC 4.58 (3.82-4.97) M/mcL Hgb 13.0 (11.5-15.4) g/dL Hct 41.9 (35.3-44.9) % MCV 91.5 (83.0-100.0) fL MCH 28.4 (28.0-33.3) pg MCHC 31.0 L (31.6-35.5) g/dL RDW 15.5 H (11.5-14.5) % Plt Count 193 (140-400) K/mcL MPV 10.2 (9.4-12.4) fL Immature Gran % 0.5 (0-4) % Seg Neutrophils % 81.8 % Lymphocytes % 8.2 % Monocytes % 6.4 % Eosinophils % 2.6 % Basophils % 0.5 % Neutrophils # 5.0 (1.6-8.9) K/mcL Lymphocytes # 0.5 L (0.6-4.6) K/mcL Monocytes # 0.4 (0.0-1.3) K/mcL Eosinophils # 0.2 (0.0-0.6) K/mcL Basophils # 0.0 (0.0-0.2) K/mcL Sodium 141 (136-145) mEq/L Potassium 4.4 (3.5-5.1) mEq/L Chloride 109 H (98-107) mEq/L Carbon Dioxide 23 (23-29) mEq/L BUN 17 (6-20) mg/dL Creatinine 1.74 H (0.60-1.20) mg/dL Est GFR ( Amer) 37 L (> 60) Est GFR (Non-Af Amer) 30 L (> 60) BUN/Creatinine Ratio 10 (6-26) Glucose 145 H (70-105) mg/dL Calculated Osmolality 296 (280-300) Lactic Acid 0.8 (0.5-2.2) mmol/L Calcium 9.6 (8.6-10.3) mg/dL Troponin I < 0.03 (< 0.04) ng/mL B-Natriuretic Peptide (Less than 100) pg/mL 05/25/18 05/25/18 Range/Units 21:33 23:14 WBC (4.3-11.1) K/mcL RBC (3.82-4.97) M/mcL Hgb (11.5-15.4) g/dL Hct (35.3-44.9) % MCV (83.0-100.0) fL MCH (28.0-33.3) pg MCHC (31.6-35.5) g/dL RDW (11.5-14.5) % Plt Count (140-400) K/mcL MPV (9.4-12.4) fL Immature Gran % (0-4) % Seg Neutrophils % % Lymphocytes % % Monocytes % % Eosinophils % % Basophils % % Neutrophils # (1.6-8.9) K/mcL Lymphocytes # (0.6-4.6) K/mcL Monocytes # (0.0-1.3) K/mcL Eosinophils # (0.0-0.6) K/mcL Basophils # (0.0-0.2) K/mcL Sodium (136-145) mEq/L Potassium (3.5-5.1) mEq/L Chloride (98-107) mEq/L Carbon Dioxide (23-29) mEq/L BUN (6-20) mg/dL Creatinine (0.60-1.20) mg/dL Est GFR ( Amer) (> 60) Est GFR (Non-Af Amer) (> 60) BUN/Creatinine Ratio (6-26) Glucose (70-105) mg/dL Calculated Osmolality (280-300) Lactic Acid 1.2 (0.5-2.2) mmol/L Calcium (8.6-10.3) mg/dL Troponin I (< 0.04) ng/mL B-Natriuretic Peptide 103 H (Less than 100) pg/mL Attestation Statement - Attestation Attestation: I, Dante Montez, examined this patient and my medical decision-making was reviewed with the ACCESS LIAISON/PA/Advanced Practice Nurse/Resident Physician. I agree with the documented findings, disposition and treatment plan as described except to the extent set forth below. 53-year-old female presents emergency Department with concerns of difficulty in breathing. Patient states her work of breathing worsened over the past 1-2 days. Patient has a history of pneumonia and COPD which she states feels similar to this. On physical examination the patient has a significant amount of wheezing in the bilateral posterior lung aponte. She has worsening of her difficulty breathing with ambulation. Denies chest pain. No pneumonia seen on chest x-ray. Patient felt improvement with nebulized albuterol. She will be admitted as likely COPD exacerbation. Patient comfortable with this plan. Vital signs stable prior to admission.
[2018-05-26] MEDS ORDERED: Acetaminophen 325 MG TABLET PO PRN (01:06)
[2018-05-26] MEDS ORDERED: traMADol 50 MG TABLET PO PRN (01:06)
[2018-05-26] MEDS ORDERED: Naloxone 0.4 MG/ML INJ IVP PRN ×2 (01:06→01:09)
--- NOTE | 2018-05-26 02:36 | Internal Med History&Physical ---
Date of Encounter: 05/26/18 Time of Encounter: 02:34 Internal Medicine - H&P: HPI Chief complaint: Shortness of breath History of present illness: Ms. Alexander is a 53 year old female with a significant smoking history, asthma, COPD, diabetes, chronic kidney disease and hypertension who presents with acute onset shortness of breath. Patient states that she was in her usual state of health up until yesterday afternoon around 3 PM. She states she was coming down her stairs when she became short of breath and had to sit down. Patient states she had a difficult time catching her breath. She took her home inhalers which did not provide her with any relief. She does endorse being around her nieces who were sick with a upper respiratory tract infection recently. She subsequently went to urgent care and it was there that they referred her to the hospital. Per ED documents, patient endorsed a somewhat different story stating that she has been having difficulty breathing over the last several days with a productive green cough. Of note patient recently had her gallbladder removed [address] Hillman. She currently denies any Fever , chills, chest pain, nausea, vomiting, abdominal pain or diarrhea. Upon presentation to the ED the patient was hypoxemic with an O2 saturation of 87% on room air. Chest x-ray was performed which was unremarkable. Laboratory workup was also unremarkable except a mild acute on chronic kidney injury. Patient received vancomycin and Zosyn in the ED for possible HCAP. Admitted for possible COPD exacerbation and HCAP. Past Med Surg Social Fam HX - Past Medical History Medical history: arthritis, asthma, COPD, coronary artery disease, diabetes, hyperlipidemia, hypertension, renal disease, other Psychiatric history: no psych history - Past Surgical History Surgical History: cholecystectomy Additional surgical history: tonsils/adenoids/tubes. eye surgery had laxzy eye - Social History Smoking Status: Current every day smoker Packs per day: 1 Smokeless Tobacco Status: No Alcohol use: none Drug use: opiates - Family History Mother Adopted: No Family Member Ethnicity: Non- Living Status: Hx Family Cardiac Disorders: Yes (SISTER) Hx Family Respiratory Disorders: Yes (DAD) Hx Family Cancer: No Hx Family GI Disorders: No Hx Family Endocrine Disorder: Yes (MOTHER) Hx Family Neuromuscular Disorders: No Hx Family Neurologic Disorders: No Hx Family HEENT Disorders: No Hx Family Autoimmune Disorders: No Sister Name: 5 sisters Living Status: Cause of : complication related to diabetes for 4 sisters, 1 sister was cancer Hx Family Cancer: Yes (hx of cancer) Hx Family Endocrine Disorder: Yes Brother Name: Rigo Living Status: Age at : 30 Cause of : heart attack Hx Family Cardiac Disorders: Yes Father Living Status: Hx Family Cardiac Disorders: No Hx Family Respiratory Disorders: Yes Hx Family Cancer: Yes (Lung CA) Internal Medicine - H&P: Meds Albuterol Sulfate [Ventolin Hfa] 2 puff IH Q6H PRN 11/29/15 [History] Pantoprazole Sodium [Protonix] 40 mg PO DAILY 11/29/15 [History] Tiotropium [Spiriva] 18 mcg IH DAILY 03/13/17 [History] Gabapentin [Neurontin] 300 mg PO TID #90 capsule 03/15/17 [Rx] OxyCODONE/APAP 5/325 [Percocet 5/325 MG] 1 tab PO TID PRN #30 tablet 03/15/17 [ Rx] Ergocalciferol (VITAMIN D2) [Vitamin D2] 50,000 unit PO SON 11/09/17 [History] Budesonide/Formoterol 80/4.5 [Symbicort 80/4.5] 2 puff IH BID 05/20/18 [History ] Ferrous Sulfate 325 mg PO DAILY 05/20/18 [History] Levocetirizine Dihydrochloride [Allergy Relief] 5 mg PO DAILY 05/20/18 [History] Rosuvastatin Calcium 40 mg PO HS 05/20/18 [History] Docusate Sodium [Colace] 100 mg PO BID #30 capsule 05/21/18 [Rx] Azithromycin 250 mg PO DAILY 2 Days #2 tablet 05/28/18 [Rx] Losartan [Cozaar] 50 mg PO DAILY 14 Days #14 tablet 05/28/18 [Rx] PredniSONE [Raúl] See Taper PO DAILY 3 Days #7 tablet. 05/28/18 [Rx] 3 Allergy/AdvReac Type Severity Reaction Status Date / Time No Known Allergies Allergy Verified 05/20/18 11:40 All Systems PM: A 10-system review of systems was performed and is negative for pertinent findings except as documented above in the HPI. - Constitutional Constitutional: no chills, no fever(s), no night sweats - EENT Eyes: no change in vision, no discharge, no pain, no photophobia Ears: no ear discharge, no ear pain, no tinnitus Nose, mouth and throat: no dysphagia, no nasal discharge, no neck pain, no sore throat - Cardiovascular Cardiovascular ROS IM: no chest pain, no diaphoresis, no dyspnea, no lightheadedness, no palpitations, no syncope - Respiratory Respiratory: no cough, no dyspnea, no wheezing, no excessive phlegm production - Gastrointestinal Gastrointestinal: no abdominal pain, no diarrhea, no hematemesis, no hematochezia, no melena, no nausea, no vomiting - Genitourinary Genitourinary: no change in urinary stream, no dysuria, no flank pain, no hematuria - Musculoskeletal Musculoskeletal ROS IM: no numbness, no tingling - Integumentary Integumentary IM: no rash, no unusual bruising - Neurological Neurological ROS: no confusion, no convulsions, no focal weakness, no numbness, no tingling, no tremor(s) - Hematologic/Lymphatic Hematologic/Lymphatic: no easy bruising - Constitutional Vitals: Temp Pulse Resp BP Pulse Ox 98.3 F 81 20 168/99 89 05/26/18 02:05 05/26/18 02:05 05/26/18 02:05 05/26/18 02:05 05/26/18 02:05 Exam: General: Alert and oriented 3 lying in bed in no acute distress Skin:Normal color, except for distal lower extremities with evidence of venous stasis dermatitis. HEENT:EOM, pupils equal, round and reactive. Cardiovascular:Normal S1 & S2, no rubs, murmurs or gallops. No JVD. Pulse regular. Lungs: Diffuse both inspiratory and expiratory wheezing appreciated throughout all lung aponte. Abdomen:Soft, mildly distended non-tender, no rigidity. Extremities:No deformity, no edema or tenderness, no joint swelling or clubbing. Neurological:Normal cognition and motor skills. Pulses:Carotid and radial pulses normal +2. Rest of the physical exam is non contributory Internal Med - H&P Results - Labs CBC & Chem 7: 05/26/18 05:10 05/27/18 04:42 - Assessment and plan (1) Acute respiratory failure with hypoxia Status: Resolved Assessment and plan: Acute hypoxemic respiratory failure now requiring 3 L nasal cannula in a patient with significant smoking history and recent cholecystectomy. Patient otherwise was hemodynamically stable, afebrile and non-tachycardic on initial presentation. Patient has diffuse inspiratory and expiratory wheezing throughout all lung aponte. Chest x-ray relatively unremarkable. Differential includes COPD exacerbation and low suspicion for both health care associated pneumonia and PE. Patient's well's score is 1.5 making her low risk. However will obtain d-dimer in an attempt to rule out PE. (2) Acute exacerbation of chronic obstructive airways disease Status: Acute Assessment and plan: Acute hypoxemic respiratory failure with diffuse inspiratory and expiratory wheeze in a patient with a long-standing history of smoking. Patient does not appear to be in any respiratory distress and is breathing comfortably at this time. Patient currently smokes 1 pack per day and she has been smoking since the age of 10. We will start patient on breathing treatments and steroids. Continue oxygen support. Currently on Vanco and Zosyn for coverage of healthcare associated pneumonia. We will continue for now and reassess in the morning. (3) HCAP (healthcare-associated pneumonia) Status: Inactive Assessment and plan: Patient recently hospitalized for cholecystectomy on 05/20/18 with no significant complications. No white count or fever. Low suspicion for healthcare associated pneumonia. Patient received 1 dose of Vanco and Zosyn in the ED. Would consider discontinuing given lack corroborating evidence on chest x-ray. Would consider starting patient on azithromycin for COPD exacerbation. (4) DM2 (diabetes mellitus, type 2) Status: Chronic Assessment and plan: Diabetic diet. Blood glucose checks and sliding scale insulin. Qualifiers: Diabetes mellitus intermission coordinator insulin use: without intermission coordinator use Diabetes mellitus complication status: with kidney complications Diabetes mellitus complication detail: with chronic kidney disease Chronic kidney disease stage : stage 3 (moderate) Qualified Code(s): E11.22 - Type 2 diabetes mellitus with diabetic chronic kidney disease; N18.3 - Chronic kidney disease, stage 3 ( moderate) (5) DVT prophylaxis Status: Acute Assessment and plan: Subcutaneous heparin - Time Spent With Patient Total time spent is greater than 50% in coordination of care (as documented) at patient's floor/unit and/or counseling patient:
[2018-05-26] MEDS ORDERED: *HR* OxyCODONE/APAP 5/325 TABLET PO PRN ×2 (02:38→14:49)
[2018-05-26] MEDS: 0.9 % Sodium Chloride 1,000 ML IVC SCH ×2 (02:45→15:45)
[2018-05-26] MEDS ORDERED: D5% in Water 1,000 ML IVC PRN (03:16)
[2018-05-26] MEDS ORDERED: Dextrose Gel 15 GM/37.5 ML TUBE PO PRN ×2 (03:16)
[2018-05-26] MEDS ORDERED: *HR* Dextrose 50 % in Water (Syg) 50 ML SYRINGE IVP PRN (03:16)
[2018-05-26] MEDS ORDERED: Piperacillin/Tazobactam 3.375 GM in 0.9 % Sodium Chloride Mini Bag 100 ML IVPB ONE (04:00)
[2018-05-26] MEDS: Ipratropium/Albuterol Neb 3 ML IH SCH ×6 (04:03→23:54)
[2018-05-26 05:42] LABS: Basophils % 0.4 %; Eosinophils % 0.2 %; Hematocrit 38.9 % (35.3-44.9); Hemoglobin 12.1 g/dL (11.5-15.4); Immature Granulocytes % 0.7 % (0-4); Lymphocytes # 0.3 K/mcL (0.6-4.6); Lymphocytes % 5.2 %; Mean Corpuscular HGB Conc 31.1 g/dL (31.6-35.5); Mean Corpuscular Hemoglobin 28.5 pg (28.0-33.3); Mean Corpuscular Volume 91.5 fL (83.0-100.0); Mean Platelet Volume 10.5 fL (9.4-12.4); Monocytes # 0.1 K/mcL (0.0-1.3); Monocytes % 1.8 %; Platelet Count 178 K/mcL (140-400); Red Blood Count 4.25 M/mcL (3.82-4.97); Red Cell Distribution Width 15.4 % (11.5-14.5); Segmented Neutrophils % 91.7 %
[2018-05-26 05:57] LABS: Albumin 3.7 g/dL (3.5-5.7); Albumin/Globulin Ratio 1.2 (1.1-2.2); Bilirubin,Total 0.4 mg/dL (0.3-1.0); Globulin 3.2 g/dL (2.4-3.5); Potassium 4.4 mEq/L (3.5-5.1); Total Protein 6.9 g/dL (6.4-8.9)
[2018-05-26] MEDS: *HR* Heparin 5,000 UNIT/ML VIAL SQ SCH ×3 (06:56→21:08)
[2018-05-26] MEDS: MethylPREDNISolone 40 MG/ML VIAL IVP SCH ×2 (06:56→13:03)
[2018-05-26] MEDS: Azithromycin 500 MG in D5% in Water 250 ML IVPB SCH (06:57)
[2018-05-26] MEDS: Nicotine 21 MG PATCH.TD24 TD SCH (09:28)
[2018-05-26] MEDS: Loratadine 10 MG TABLET PO SCH (09:32)
[2018-05-26] MEDS: Insulin LISPRO 300 UNITS/3 ML VIAL SQ SCH ×3 (09:33→16:17)
[2018-05-26] MEDS: cefTRIAXone 1,000 MG in Water for inj. (sterile) 20 ML 10 ML IVP SCH (16:16)
--- NOTE | 2018-05-26 18:57 | Event Note ---
Date of Encounter: 05/26/18 Time of Encounter: 09:30 pt admitted with copd exacerbation currently no sob on o2 nc, no hoome o2 use, + cough, green sputum + wheezing change to rocpehin + azithro, decrease IV steroids and cont to monitor she has elevated dimer though this can be seen in setting of infection, she is denyng calf pain, edema, immobilization, recent long travel. Ideally cta would be obtianed but her kidney funciton is not ideal at this time. will cont to monitor for other s/s of pe and for improvement with copd exacerbation treatment and will consider cta gen- awake, alert, nad lungs- exp wheezing thorughout, diminsihed bl bases, normal resp effort on ra cv- rrr, no m/r/g, no le edema abd- soft, nt, nd, + bs neuro -aaox3, cn grossly intact
[2018-05-27] MEDS: MethylPREDNISolone 40 MG/ML VIAL IVP SCH ×3 (02:02→20:47)
[2018-05-27] MEDS: Ipratropium/Albuterol Neb 3 ML IH SCH ×6 (04:06→23:31)
[2018-05-27] MEDS: Azithromycin 500 MG in D5% in Water 250 ML IVPB SCH (04:33)
[2018-05-27 05:20] LABS: Calcium 8.9 mg/dL (8.6-10.3); Potassium 4.4 mEq/L (3.5-5.1)
[2018-05-27] MEDS: *HR* Heparin 5,000 UNIT/ML VIAL SQ SCH ×3 (07:04→20:47)
[2018-05-27] MEDS: Insulin LISPRO 300 UNITS/3 ML VIAL SQ SCH ×3 (08:34→16:53)
[2018-05-27] MEDS: cefTRIAXone 1,000 MG in Water for inj. (sterile) 20 ML 10 ML IVP SCH (08:45)
[2018-05-27] MEDS: Loratadine 10 MG TABLET PO SCH (08:45)
--- NOTE | 2018-05-27 10:02 | Internal Med Progress Note ---
Hospitalist Progress Note - Encounter Date of Encounter: 05/27/18 Time of Encounter: 08:45 - Subjective Interval History: overall sob is improving, denies wheezing, + cough with sputum, denies fevers and chills. she denies any recent hx of le calk pain, edema, immobiliztion or clot hx. No cp, pressure. - Exam Vitals: Temp Pulse Resp BP Pulse Ox 98.1 F 49 14 157/91 91 05/27/18 08:10 05/27/18 08:10 05/27/18 08:10 05/27/18 08:10 05/27/18 08:10 Exam: General: awake, alert, appears stated age Neck: supple, trachea midline Cardiovascular:regular rate and rhythm, normal S1 & S2, no rubs, murmurs or gallops. no lower extremity edema Lungs:N+ exp wheezing, no rhonchi or crackles, Normal respiratory effort on o2 nc Abdomen:Soft, non-tender, non-distended, + bowel sounds Neurological: AAOx3 Skin:Normal color, no rash, no pallor - Assessment and Plan (1) Acute respiratory failure with hypoxia Current Visit: No Status: Acute Assessment and Plan: Acute hypoxemic respiratory failure now requiring 3 L nasal cannula in a patient with significant smoking history Liekly 2/2 COPD exacerbation and low suspicion for both health care associated pneumonia and PE -Chest x-ray relatively unremarkable. D -Patient's well's score is 1.5 making her low risk however D Dimer obtained onadmit elevated -though she recently had cholecystectomy--she denies calf pain, edema, immobilization, recent long travel. Ideally cta would be obtained but her kidney function is not ideal at this time. will cont to monitor for other s/s of pe but at this time clinical picture more c/w COPD exacerbation and clinically improving (2) Acute exacerbation of chronic obstructive airways disease Current Visit: Yes Status: Acute Assessment and Plan: Acute hypoxemic respiratory failure with diffuse inspiratory and expiratory wheeze in a patient with a long-standing history of smoking. -cont rocephin + azithro -supplemental o2 nc wean as able -IV steroids -nebs standing and prn -will frther wean steroids in am -increase ambulation (3) DM2 (diabetes mellitus, type 2) Current Visit: No Status: Chronic Assessment and Plan: Diabetic diet. Blood glucose checks and sliding scale insulin. -she is refusing any SSI -not on any home meds -will cont to monitor with decreasing steroids -ada diet (4) HCAP (healthcare-associated pneumonia) Current Visit: Yes Status: Inactive Assessment and Plan: Patient recently hospitalized for cholecystectomy on 05/20/18 with no significant complications. No white count or fever. Low suspicion for healthcare associated pneumonia. Patient received 1 dose of Vanco and Zosyn in the ED. Would consider discontinuing given lack corroborating evidence on chest x-ray. Would consider starting patient on azithromycin for COPD exacerbation. (5) DVT prophylaxis Current Visit: Yes Status: Acute Assessment and Plan: Subcutaneous heparin (6) CKD (chronic kidney disease) stage 3, GFR 30-59 ml/min Current Visit: No Status: Chronic Assessment and Plan: DIANA on CKD, resolved with IVFs -creat on admit 1.78 and now downtrended to 1.48 -appears to be back to baseline 1.2-1.4 in recent months -avoid nephro toxic agents (7) HTN (hypertension) Current Visit: No Status: Chronic Assessment and Plan: losartan resumed -bp stable -requires outpt fu for further management - Time Spent with Patient Total time spent is greater than 50% in coordination of care (as documented) at patient's floor/unit and/or counseling patient: 25 - 35 minutes Plan of Care Discussed with: patient Internal Medicine: Result - Labs CBC & Chem 7: 05/26/18 05:10 05/27/18 04:42 Labs: BMP 05/27/18 04:42 Sodium 138 Potassium 4.4 Chloride 109 H Carbon Dioxide 24 BUN 23 H Creatinine 1.48 H Glucose 225 H Calcium 8.9 - ABG Interpretation ABG results: PT/INR, D-dimer D-Dimer 1326 ng/mLFEU (0-500) H 05/26/18 05:10 Consult Discharge Plan - Plan Referrals: Shalonda Crowell MD [Primary Care Provider] - (3) DM2 (diabetes mellitus, type 2) Qualifiers: Diabetes mellitus long-term insulin use: without buttermaker helper use Diabetes mellitus complication status: with kidney complications Diabetes mellitus complication detail: with chronic kidney disease Chronic kidney disease stage: stage 3 (moderate) Qualified Code(s): E11.22 - Type 2 diabetes mellitus with diabetic chronic kidney disease; N18.3 - Chronic kidney disease, stage 3 ( moderate) (7) HTN (hypertension) Qualifiers: Hypertension type: essential hypertension Qualified Code(s): I10 - Essential (primary) hypertension
[2018-05-27] MEDS: Nicotine 21 MG PATCH.TD24 TD SCH (10:34)
--- NOTE | 2018-05-27 15:57 | Electrocardiograph Report ---
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
[2018-05-28] MEDS: Ipratropium/Albuterol Neb 3 ML IH SCH ×4 (03:44→19:50)
[2018-05-28] MEDS: *HR* Heparin 5,000 UNIT/ML VIAL SQ SCH (04:58)
[2018-05-28] MEDS: Azithromycin 500 MG in D5% in Water 250 ML IVPB SCH (04:58)
--- NOTE | 2018-05-28 08:29 | Internal Med Progress Note ---
Hospitalist Progress Note - Encounter Date of Encounter: 05/28/18 Time of Encounter: 09:30 - Subjective Interval History: in bed on room air. feeling back to baseline. denies fevers, chills, sob. cough improving. she ambulated with RN and did not have symptoms, does not require home o2. - Exam Vitals: Temp Pulse Resp BP Pulse Ox 98.0 F 52 18 153/89 93 05/27/18 17:12 05/28/18 06:45 05/28/18 06:45 05/28/18 06:45 05/28/18 06:45 Exam: General: awake, alert, appears stated age Cardiovascular:regular rate and rhythm, normal S1 & S2, no rubs, murmurs or gallops. no lower extremity edema Lungs:ctabl today, no wheezing no rhonchi or crackles, Normal respiratory effort on room air Abdomen:Soft, non-tender, non-distended, + bowel sounds Neurological: AAOx3 Skin:Normal color, no rash, no pallor - Assessment and Plan (1) Acute respiratory failure with hypoxia Current Visit: No Status: Resolved Assessment and Plan: Acute hypoxemic respiratory failure now requiring 3 L nasal cannula in a patient with significant smoking history ,RESOLVED Likely 2/2 COPD exacerbation and low suspicion for both health care associated pneumonia and PE -Chest x-ray relatively unremarkable. -Patient's well's score is 1.5 making her low risk however D Dimer obtained on admit elevated -though she recently had cholecystectomy--she denies calf pain, edema, immobilization, recent long travel. did not obtain cta given kidney function and then resolved symptoms/hypoxia with treatment of copd exacerbation (2) Acute exacerbation of chronic obstructive airways disease Current Visit: Yes Status: Acute Assessment and Plan: Acute hypoxemic respiratory failure with diffuse inspiratory and expiratory wheeze in a patient with a long-standing history of smoking. -cont rocephin + azithro -supplemental o2 nc weaned to room air -IV steroids weaning--oral taper on dc -nebs standing and prn -increase ambulation -6 minwalk preformed, does not require o2, no sxs on ambulation -dc to home and cont oral abx course, fu with pcp (3) DM2 (diabetes mellitus, type 2) Current Visit: No Status: Chronic Assessment and Plan: Diabetic diet. Blood glucose checks and sliding scale insulin. -she is refusing any SSI -not on any home meds -needs to fu with pcp on dc -ada diet (4) DVT prophylaxis Current Visit: Yes Status: Acute Assessment and Plan: Subcutaneous heparin (5) CKD (chronic kidney disease) stage 3, GFR 30-59 ml/min Current Visit: No Status: Chronic Assessment and Plan: DIANA on CKD, resolved with IVFs -creat on admit 1.78 and now downtrended to 1.48 -appears to be back to baseline 1.2-1.4 in recent months -avoid nephro toxic agents (6) HTN (hypertension) Current Visit: No Status: Chronic Assessment and Plan: losartan resumed -holding BB due to HR in 50s -BPs above goals consistently 150-160s sbp--increase home losartan -requires outpt fu for further management - Time Spent with Patient Total time spent is greater than 50% in coordination of care (as documented) at patient's floor/unit and/or counseling patient: 25 - 35 minutes Plan of Care Discussed with: patient Internal Medicine: Result - Labs CBC & Chem 7: 05/26/18 05:10 05/27/18 04:42 - ABG Interpretation ABG results: PT/INR, D-dimer D-Dimer 1326 ng/mLFEU (0-500) H 05/26/18 05:10 Consult Discharge Plan - Plan Referrals: Shalonda Crowell MD [Primary Care Provider] - (3) DM2 (diabetes mellitus, type 2) Qualifiers: Diabetes mellitus group home insulin use: without laborer marine terminal use Diabetes mellitus complication status: with kidney complications Diabetes mellitus complication detail: with chronic kidney disease Chronic kidney disease stage: stage 3 (moderate) Qualified Code(s): E11.22 - Type 2 diabetes mellitus with diabetic chronic kidney disease; N18.3 - Chronic kidney disease, stage 3 ( moderate) (6) HTN (hypertension) Qualifiers: Hypertension type: essential hypertension Qualified Code(s): I10 - Essential (primary) hypertension
[2018-05-28] MEDS ORDERED: MethylPREDNISolone 40 MG/ML VIAL IVP SCH (09:00)
[2018-05-28] MEDS: Loratadine 10 MG TABLET PO SCH (09:12)
[2018-05-28] MEDS: Nicotine 21 MG PATCH.TD24 TD SCH (09:13)
[2018-05-28] MEDS: cefTRIAXone 1,000 MG in Water for inj. (sterile) 20 ML 10 ML IVP SCH (09:13)
[2018-05-28] MEDS: Insulin LISPRO 300 UNITS/3 ML VIAL SQ SCH ×2 (09:14→12:15)
[2018-05-28 11:21] VITALS: BP 163/84
--- NOTE | 2018-05-28 12:04 | Discharge Summary ---
- NOTES TO OUTPATIENT PROVIDER Notes to Outpatient Provider: treated for copd exacerbation, to [facility] oral abx and steroids outpt. OF NOTE: home coreg stopped due to bradycardia (asx) this admission and home losartan increased due to bps elevated consistently. Requires outpt fu Date of Encounter: 05/28/18 Time of Encounter: 09:30 - Discharge Diagnosis (1) Acute respiratory failure with hypoxia Priority: Primary Status: Resolved Assessment and Plan: Acute hypoxemic respiratory failure now requiring 3 L nasal cannula in a patient with significant smoking history ,RESOLVED Likely 2/2 COPD exacerbation and low suspicion for both health care associated pneumonia and PE -Chest x-ray relatively unremarkable. -Patient's well's score is 1.5 making her low risk however D Dimer obtained on admit elevated -though she recently had cholecystectomy--she denies calf pain, edema, immobilization, recent long travel. did not obtain cta given kidney function and then resolved symptoms/hypoxia with treatment of copd exacerbation (2) Acute exacerbation of chronic obstructive airways disease Priority: Primary Status: Acute Assessment and Plan: Acute hypoxemic respiratory failure with diffuse inspiratory and expiratory wheeze in a patient with a long-standing history of smoking. -cont rocephin + azithro -supplemental o2 nc weaned to room air -IV steroids weaning--oral taper on dc -nebs standing and prn -increase ambulation -6 minwalk preformed, does not require o2, no sxs on ambulation -dc to home and cont oral abx course, fu with pcp (3) DM2 (diabetes mellitus, type 2) Priority: Secondary Status: Chronic Assessment and Plan: Diabetic diet. Blood glucose checks and sliding scale insulin. -she is refusing any SSI -not on any home meds -needs to fu with pcp on dc -ada diet Qualifiers: Diabetes mellitus parts counterman insulin use: without parts counterman use Diabetes mellitus complication status: with kidney complications Diabetes mellitus complication detail: with chronic kidney disease Chronic kidney disease stage : stage 3 (moderate) Qualified Code(s): E11.22 - Type 2 diabetes mellitus with diabetic chronic kidney disease; N18.3 - Chronic kidney disease, stage 3 ( moderate) (4) DVT prophylaxis Priority: Secondary Status: Acute Assessment and Plan: Subcutaneous heparin (5) CKD (chronic kidney disease) stage 3, GFR 30-59 ml/min Priority: Secondary Status: Chronic Assessment and Plan: DIANA on CKD, resolved with IVFs -creat on admit 1.78 and now downtrended to 1.48 -appears to be back to baseline 1.2-1.4 in recent months -avoid nephro toxic agents (6) HTN (hypertension) Priority: Secondary Status: Chronic Assessment and Plan: losartan resumed -holding BB due to HR in 50s -BPs above goals consistently 150-160s sbp--increase home losartan -requires outpt fu for further management Qualifiers: Hypertension type: essential hypertension Qualified Code(s): I10 - Essential (primary) hypertension Hospital course: Ms. Alexander is a 53 year old female who presented with productive cough, sob from copd exacerbation. symptoms improved as above with treatment. of note, she had elevated d dimer this admission but no clinical hx suspicious for clot and symptoms resolved with copd exacerbation treatment. She had elevated bps and HR inthe mostly 50s that required adjustments to her home meds as above. See above for full details of course. She is dc to home in stable condition. - Time Spent with Patient Total time spent providing and/or coordinating discharge services: Less than 30 minutes - Discharge Medications Prescriptions: Azithromycin 250 mg PO DAILY 2 Days #2 tablet Losartan [Cozaar] 50 mg PO DAILY 14 Days #14 tablet PredniSONE [Raúl] See Taper PO DAILY 3 Days #7 tablet.dr Home Medications: Albuterol Sulfate [Ventolin Hfa] 2 puff IH Q6H PRN 11/29/15 [History] Pantoprazole Sodium [Protonix] 40 mg PO DAILY 11/29/15 [History] Tiotropium [Spiriva] 18 mcg IH DAILY 03/13/17 [History] Gabapentin [Neurontin] 300 mg PO TID #90 capsule 03/15/17 [Rx] OxyCODONE/APAP 5/325 [Percocet 5/325 MG] 1 tab PO TID PRN #30 tablet 03/15/17 [ Rx] Ergocalciferol (VITAMIN D2) [Vitamin D2] 50,000 unit PO SON 11/09/17 [History] Budesonide/Formoterol 80/4.5 [Symbicort 80/4.5] 2 puff IH BID 05/20/18 [History ] Ferrous Sulfate 325 mg PO DAILY 05/20/18 [History] Levocetirizine Dihydrochloride [Allergy Relief] 5 mg PO DAILY 05/20/18 [History] Rosuvastatin Calcium 40 mg PO HS 05/20/18 [History] Docusate Sodium [Colace] 100 mg PO BID #30 capsule 05/21/18 [Rx] Azithromycin 250 mg PO DAILY 2 Days #2 tablet 05/28/18 [Rx] Losartan [Cozaar] 50 mg PO DAILY 14 Days #14 tablet 05/28/18 [Rx] PredniSONE [Raúl] See Taper PO DAILY 3 Days #7 tablet. 05/28/18 [Rx] Allergies/Adverse Reactions: 3 Allergy/AdvReac Type Severity Reaction Status Date / Time No Known Allergies Allergy Verified 05/20/18 11:40 Date of admission: 05/26/18 04:03 Primary care physician: Shalonda Crowell MD Discharging clinician: Kerri Echavarria - Constitutional Vitals: Temp Pulse Resp BP Pulse Ox 97.8 F 48 16 163/84 96 05/28/18 11:09 05/28/18 11:09 05/28/18 11:32 05/28/18 11:05/28/18 11:32 Exam: General: awake, alert, appears stated age Cardiovascular:regular rate and rhythm, normal S1 & S2, no rubs, murmurs or gallops. no lower extremity edema Lungs:ctabl today, no wheezing no rhonchi or crackles, Normal respiratory effort on room air Abdomen:Soft, non-tender, non-distended, + bowel sounds Neurological: AAOx3 Skin:Normal color, no rash, no pallor - Patient Status Disposition: Home, Self-Care Condition: Good Overall status at discharge: patient is back to baseline - Discharge Instructions Follow Up With: Shalonda Crowell MD [Primary Care Provider] - - Diet and Activity Activity: resume usual activities as tolerated Diet: other (low fat, low salt, diabetic)
== END 2018-05-28 15:00 | disposition home or self-care (01) | DRG 190 ==
LOC: EMEROOARM 20:39 → 3ANU 20:39 → SUATTDRO 05-26 04:03
PROVIDERS: ADMIT Pediatrics; ATTEND Internal Medicine

== ENCOUNTER 2020-08-22 09:55 | Observation (INO) ==
[2020-08-22] MEDS ORDERED: 0.9 % Sodium Chloride 1,000 ML IVC ONE (10:22)
[2020-08-22] MEDS ORDERED: Isovue-370 500 ML BOTTLE IVP ONE (10:31)
[2020-08-22 10:59] LABS: Immature Granulocytes % 0.2 % (0-4); Lymphocytes % 18.1 %
[2020-08-22 11:00] LABS: Basophils % 0.6 %; Eosinophils # 0.1 K/mcL (0.0-0.6); Eosinophils % 2.5 %; Hematocrit 35.7 % (35.3-44.9); Hemoglobin 10.4 g/dL (11.5-15.4); Lymphocytes # 0.9 K/mcL (0.6-4.6); Mean Corpuscular HGB Conc 29.1 g/dL (31.6-35.5); Mean Corpuscular Hemoglobin 25.1 pg (28.0-33.3); Mean Corpuscular Volume 86.2 fL (83.0-100.0); Mean Platelet Volume 10.2 fL (9.4-12.4); Monocytes # 0.5 K/mcL (0.0-1.3); Monocytes % 8.8 %; Neutrophils # 3.6 K/mcL (1.6-8.9); Platelet Count 166 K/mcL (140-400); Red Blood Count 4.14 M/mcL (3.82-4.97); Red Cell Distribution Width 18.6 % (11.5-14.5); Segmented Neutrophils % 69.8 %; White Blood Count 5.1 K/mcL (4.3-11.1)
[2020-08-22 11:10] LABS: INR 1.1; Prothrombin Time 12.6 Seconds (9.4-12.1)
[2020-08-22 11:12] LABS: Activated Partial Thrombo Time 23.7 Seconds (26.0-36.0)
[2020-08-22 11:16] LABS: Albumin 3.7 g/dL (3.5-5.7); Albumin/Globulin Ratio 0.9 (1.1-2.2); Bilirubin,Direct 0.1 mg/dL (0.0-0.2); Bilirubin,Indirect 0.5 mg/dL (0.0-1.0); Bilirubin,Total 0.6 mg/dL (0.3-1.0); Calcium 8.7 mg/dL (8.6-10.3); Potassium 4.2 mEq/L (3.5-5.1); Total Protein 7.7 g/dL (6.4-8.9)
[2020-08-22 11:37] LABS: Anisocytosis 1+ (Not Present); Platelet Estimate Normal (Normal)
[2020-08-22] MEDS ORDERED: *HR* OxyCODONE/APAP 5/325 TABLET PO STA (13:43)
[2020-08-22] MEDS ORDERED: Clindamycin 600 MG/50 ML 600 MG/50 ML IV.SOLN IVPB ONE (15:25)
[2020-08-22] MEDS ORDERED: Naloxone 0.4 MG/ML INJ IVP PRN (16:09)
[2020-08-22] MEDS: *HR* Heparin 5,000 UNIT/ML VIAL SQ SCH (18:48)
[2020-08-22] MEDS: Lactobacillus 1 EACH CAP.SPRINK PO SCH (21:28)
[2020-08-22] MEDS ORDERED: Nystatin POWDER 30 GM BOTTLE TP PRN (21:52)
[2020-08-22] MEDS: Clindamycin 600 MG/50 ML 600 MG/50 ML IV.SOLN IVPB SCH (23:38)
[2020-08-23] MEDS: *HR* OxyCODONE/APAP 5/325 TABLET PO PRN ×2 (00:25→16:28)
[2020-08-23] MEDS: *HR* Heparin 5,000 UNIT/ML VIAL SQ SCH ×2 (06:00→18:02)
[2020-08-23] MEDS: Tiotropium 18 MCG inhalation IH SCH (07:33)
[2020-08-23] MEDS ORDERED: Gabapentin 300 MG CAPSULE PO SCH (09:00)
[2020-08-23] MEDS: Lactobacillus 1 EACH CAP.SPRINK PO SCH ×2 (09:29→21:11)
[2020-08-23] MEDS: Clindamycin 600 MG/50 ML 600 MG/50 ML IV.SOLN IVPB SCH ×2 (09:29→16:21)
[2020-08-23 10:37] LABS: Mean Corpuscular Hemoglobin 24.4 pg (28.0-33.3)
[2020-08-23 10:39] LABS: Basophils % 0.6 %; Eosinophils # 0.1 K/mcL (0.0-0.6); Eosinophils % 2.2 %; Hemoglobin 10.6 g/dL (11.5-15.4); Immature Granulocytes % 0.6 % (0-4); Immature Platelets 2.2 % (1.1-6.1); Lymphocytes # 0.6 K/mcL (0.6-4.6); Lymphocytes % 17.7 %; Mean Corpuscular HGB Conc 29.4 g/dL (31.6-35.5); Mean Corpuscular Volume 82.9 fL (83.0-100.0); Mean Platelet Volume 10.3 fL (9.4-12.4); Monocytes # 0.3 K/mcL (0.0-1.3); Monocytes % 7.2 %; Neutrophils # 2.6 K/mcL (1.6-8.9); Platelet Count 164 K/mcL (140-400); Red Blood Count 4.34 M/mcL (3.82-4.97); Red Cell Distribution Width 18.6 % (11.5-14.5); Segmented Neutrophils % 71.7 %; White Blood Count 3.6 K/mcL (4.3-11.1)
[2020-08-23 10:52] LABS: Calcium 8.8 mg/dL (8.6-10.3); Potassium 4.4 mEq/L (3.5-5.1)
[2020-08-23] MEDS: Gabapentin 300 MG CAPSULE PO SCH ×2 (16:20→21:11)
[2020-08-24] MEDS: Clindamycin 600 MG/50 ML 600 MG/50 ML IV.SOLN IVPB SCH (02:54)
[2020-08-24] MEDS: *HR* OxyCODONE/APAP 5/325 TABLET PO PRN (04:43)
[2020-08-24] MEDS: *HR* Heparin 5,000 UNIT/ML VIAL SQ SCH (04:43)
[2020-08-24 05:32] LABS: Basophils % 0.5 %; Eosinophils # 0.1 K/mcL (0.0-0.6); Eosinophils % 2.4 %; Hematocrit 33.7 % (35.3-44.9); Hemoglobin 9.9 g/dL (11.5-15.4); Lymphocytes % 25.9 %; Mean Corpuscular HGB Conc 29.4 g/dL (31.6-35.5); Mean Corpuscular Hemoglobin 24.9 pg (28.0-33.3); Mean Corpuscular Volume 84.9 fL (83.0-100.0); Mean Platelet Volume 10.3 fL (9.4-12.4); Monocytes # 0.5 K/mcL (0.0-1.3); Neutrophils # 2.2 K/mcL (1.6-8.9); Platelet Count 196 K/mcL (140-400); Red Blood Count 3.97 M/mcL (3.82-4.97); Red Cell Distribution Width 18.6 % (11.5-14.5); Segmented Neutrophils % 58.2 %; White Blood Count 3.7 K/mcL (4.3-11.1)
[2020-08-24 05:49] LABS: Calcium 8.6 mg/dL (8.6-10.3); Potassium 4.3 mEq/L (3.5-5.1)
[2020-08-24 07:31] VITALS: BP 114/62
[2020-08-24] MEDS: Tiotropium 18 MCG inhalation IH SCH (08:06)
[2020-08-24] MEDS: Gabapentin 300 MG CAPSULE PO SCH ×2 (09:06→15:56)
[2020-08-24] MEDS: Lactobacillus 1 EACH CAP.SPRINK PO SCH (09:06)
[2020-08-24] MEDS ORDERED: Clindamycin 600 MG/50 ML 600 MG/50 ML IV.SOLN IVPB SCH (11:00)
== END 2020-08-24 18:11 | disposition home health service (06) ==
LOC: EMEROOARM 09:55 → 3ANU 09:55 → SUATTDRO 16:12 → 3ANU 16:51
PROVIDERS: ADMIT Internal Medicine; ATTEND Family Medicine

== ENCOUNTER 2020-09-28 07:31 | Observation (INO) ==
[2020-09-28] MEDS ORDERED: Morphine Sulfate 2 MG/ML SYRINGE IVP STA (08:08)
[2020-09-28 08:19] LABS: Lymphocytes % 10.9 %; Nucleated Red Blood Cells 0.6 /100 WBC (0); Red Cell Distribution Width 18.6 % (11.5-14.5)
[2020-09-28 08:20] LABS: Basophils % 0.4 %; Eosinophils # 0.1 K/mcL (0.0-0.6); Eosinophils % 1.4 %; Hematocrit 34.8 % (35.3-44.9); Immature Granulocytes % 0.8 % (0-4); Mean Corpuscular HGB Conc 28.7 g/dL (31.6-35.5); Mean Corpuscular Hemoglobin 25.2 pg (28.0-33.3); Mean Corpuscular Volume 87.7 fL (83.0-100.0); Mean Platelet Volume 9.8 fL (9.4-12.4); Monocytes # 0.5 K/mcL (0.0-1.3); Monocytes % 10.3 %; Neutrophils # 3.8 K/mcL (1.6-8.9); Platelet Count 216 K/mcL (140-400); Red Blood Count 3.97 M/mcL (3.82-4.97); Segmented Neutrophils % 76.2 %
[2020-09-28 08:22] LABS: Lymphocytes # 0.6 K/mcL (0.6-4.6)
[2020-09-28 08:39] LABS: Calcium 9.3 mg/dL (8.6-10.3); Potassium 5.2 mEq/L (3.5-5.1)
[2020-09-28 08:40] LABS: Hypochromasia Present (Not Present); Platelet Estimate Normal (Normal)
[2020-09-28] MEDS ORDERED: 0.9 % Sodium Chloride 1,000 ML IVC SCH (09:00)
[2020-09-28] MEDS ORDERED: Piperacillin/Tazobactam 3.375 GM in Water for inj. (sterile) 20 ML IVP ONE (09:24)
[2020-09-28] MEDS ORDERED: Vancomycin 2,000 MG/520 ML IV.SOLN IVPB ONE (09:35)
[2020-09-28] MEDS ORDERED: Naloxone 0.4 MG/ML INJ IVP PRN (10:06)
[2020-09-28] MEDS ORDERED: Nystatin POWDER 30 GM BOTTLE TP PRN (10:08)
[2020-09-28] MEDS: *HR* OxyCODONE/APAP 5/325 TABLET PO PRN (11:47)
[2020-09-28] MEDS ORDERED: *HR* Dextrose 50 % in Water (Vial) 50 ML VIAL IVP PRN (13:07)
[2020-09-28] MEDS ORDERED: Dextrose Gel 15 GM/37.5 ML TUBE PO PRN ×2 (13:07)
[2020-09-28] MEDS ORDERED: D5% in Water 1,000 ML IVC PRN (13:07)
[2020-09-28] MEDS: Gabapentin 400 MG CAPSULE PO SCH ×2 (14:38→22:00)
[2020-09-28] MEDS: *HR* Heparin 5,000 UNIT/ML VIAL SQ SCH ×2 (14:38→22:05)
[2020-09-28] MEDS: Insulin LISPRO 300 UNITS/3 ML VIAL SUBQ SCH ×2 (18:22→22:00)
[2020-09-28] MEDS: Lactobacillus 1 EACH CAP.SPRINK PO SCH (22:00)
[2020-09-28] MEDS: Sulfamethoxazole/Trimeth DS 1 EACH TABLET PO SCH (22:00)
[2020-09-29] MEDS: *HR* Heparin 5,000 UNIT/ML VIAL SQ SCH ×3 (04:59→22:28)
[2020-09-29 05:42] LABS: Basophils % 0.6 %; Eosinophils # 0.1 K/mcL (0.0-0.6); Hematocrit 30.8 % (35.3-44.9); Immature Granulocytes % 0.9 % (0-4); Lymphocytes # 0.5 K/mcL (0.6-4.6); Lymphocytes % 15.3 %; Mean Corpuscular HGB Conc 29.2 g/dL (31.6-35.5); Mean Corpuscular Hemoglobin 25.2 pg (28.0-33.3); Mean Corpuscular Volume 86.3 fL (83.0-100.0); Mean Platelet Volume 9.7 fL (9.4-12.4); Monocytes # 0.5 K/mcL (0.0-1.3); Monocytes % 14.2 %; Neutrophils # 2.3 K/mcL (1.6-8.9); Nucleated Red Blood Cells 1.4 /100 WBC (0); Platelet Count 219 K/mcL (140-400); Red Blood Count 3.57 M/mcL (3.82-4.97); Red Cell Distribution Width 18.7 % (11.5-14.5); White Blood Count 3.5 K/mcL (4.3-11.1)
[2020-09-29 06:06] LABS: Calcium 8.9 mg/dL (8.6-10.3); Potassium 5.2 mEq/L (3.5-5.1)
[2020-09-29] MEDS: Tiotropium 10 INH DOSE IH SCH (08:29)
[2020-09-29] MEDS: Budesonide/Formoterol 160/4.5 1 PUFF INH IH SCH ×2 (08:29→20:01)
[2020-09-29] MEDS: Insulin LISPRO 300 UNITS/3 ML VIAL SUBQ SCH ×4 (08:34→20:46)
[2020-09-29] MEDS: Lactobacillus 1 EACH CAP.SPRINK PO SCH ×2 (08:40→20:37)
[2020-09-29] MEDS: Gabapentin 400 MG CAPSULE PO SCH ×3 (08:41→20:36)
[2020-09-29] MEDS: Sulfamethoxazole/Trimeth DS 1 EACH TABLET PO SCH (08:41)
[2020-09-29] MEDS ORDERED: Ergocalciferol (VIT D2) 50,000 UNIT (1.25MG) CAP PO SCH (09:00)
[2020-09-29] MEDS ORDERED: calcitrioL 0.25 MCG CAPSULE PO SCH (09:00)
[2020-09-29] MEDS: Ammonium Lactate 30 APPL/225 GM BOTTLE TP SCH (09:21)
[2020-09-29] MEDS: Nystatin Cream 15 GM TUBE TP SCH ×3 (09:21→20:38)
[2020-09-29] MEDS: *HR* OxyCODONE/APAP 5/325 TABLET PO PRN (13:44)
[2020-09-29] MEDS: Doxycycline 100 MG CAPSULE PO SCH (20:37)
[2020-09-30] MEDS: *HR* OxyCODONE/APAP 5/325 TABLET PO PRN ×2 (00:17→12:30)
[2020-09-30 04:16] LABS: Calcium 8.9 mg/dL (8.6-10.3); Potassium 5.2 mEq/L (3.5-5.1)
[2020-09-30 06:04] LABS: Basophils % 0.7 %; Eosinophils # 0.1 K/mcL (0.0-0.6); Eosinophils % 2.1 %; Hematocrit 31.1 % (35.3-44.9); Hemoglobin 9.1 g/dL (11.5-15.4); Immature Granulocytes % 1.8 % (0-4); Lymphocytes # 0.7 K/mcL (0.6-4.6); Lymphocytes % 25.4 %; Mean Corpuscular HGB Conc 29.3 g/dL (31.6-35.5); Mean Corpuscular Hemoglobin 25.3 pg (28.0-33.3); Mean Corpuscular Volume 86.4 fL (83.0-100.0); Mean Platelet Volume 9.8 fL (9.4-12.4); Monocytes # 0.4 K/mcL (0.0-1.3); Monocytes % 14.1 %; Neutrophils # 1.6 K/mcL (1.6-8.9); Nucleated Red Blood Cells 1.4 /100 WBC (0); Platelet Count 208 K/mcL (140-400); Red Cell Distribution Width 18.5 % (11.5-14.5); Segmented Neutrophils % 55.9 %; White Blood Count 2.8 K/mcL (4.3-11.1)
[2020-09-30] MEDS: *HR* Heparin 5,000 UNIT/ML VIAL SQ SCH ×2 (06:30→16:08)
[2020-09-30 07:11] LABS: Hypochromasia Present (Not Present); Platelet Estimate Normal (Normal)
[2020-09-30] MEDS: Budesonide/Formoterol 160/4.5 1 PUFF INH IH SCH (10:13)
[2020-09-30] MEDS: Tiotropium 10 INH DOSE IH SCH (10:14)
[2020-09-30] MEDS: Lactobacillus 1 EACH CAP.SPRINK PO SCH (11:09)
[2020-09-30] MEDS: Gabapentin 400 MG CAPSULE PO SCH ×2 (11:09→17:07)
[2020-09-30] MEDS: Insulin LISPRO 300 UNITS/3 ML VIAL SUBQ SCH ×3 (11:10→17:07)
[2020-09-30] MEDS: Nystatin Cream 15 GM TUBE TP SCH ×2 (11:10→17:07)
[2020-09-30] MEDS: Doxycycline 100 MG CAPSULE PO SCH (11:10)
[2020-09-30 11:21] VITALS: BP 152/77
[2020-09-30] MEDS ORDERED: Insulin Human Regular 10 UNIT in 0.9 % Sodium Chloride 10 ML IV ONE (11:44)
[2020-09-30] MEDS ORDERED: *HR* Dextrose 50 % in Water (Vial) 50 ML VIAL IVP ONE (11:45)
[2020-09-30] MEDS: Ammonium Lactate 30 APPL/225 GM BOTTLE TP SCH (12:29)
[2020-09-30 14:02] LABS: Influenza A PCR Negative (Negative); Influenza B PCR Negative (Negative); Resp. Syncytial Virus PCR Negative (Negative)
[2020-09-30 14:05] LABS: SARS-CoV-2 by PCR (In House) Negative (Negative)
== END 2020-09-30 18:28 ==
LOC: 3ANU 07:31 → EMEROOARM 07:31 → 3ANU 11:12
PROVIDERS: ADMIT Internal Medicine; ATTEND Internal Medicine

== ENCOUNTER 2020-12-18 19:55 | Inpatient (IN) ==
[2020-12-18] MEDS ORDERED: Piperacillin/Tazobactam 3.375 GM in Water for inj. (sterile) 20 ML IVP ONE (20:34)
[2020-12-18] MEDS ORDERED: Isovue-370 500 ML BOTTLE IVP ONE (20:38)
[2020-12-18 20:53] LABS: Basophils % 0.2 %; Hematocrit 39.8 % (35.3-44.9); Hemoglobin 12.2 g/dL (11.5-15.4); Immature Granulocytes % 0.5 % (0-4); Lymphocytes # 0.4 K/mcL (0.6-4.6); Lymphocytes % 4.3 %; Mean Corpuscular HGB Conc 30.7 g/dL (31.6-35.5); Mean Corpuscular Hemoglobin 27.5 pg (28.0-33.3); Mean Corpuscular Volume 89.8 fL (83.0-100.0); Mean Platelet Volume 10.6 fL (9.4-12.4); Monocytes # 0.6 K/mcL (0.0-1.3); Monocytes % 6.7 %; Neutrophils # 7.3 K/mcL (1.6-8.9); Platelet Count 182 K/mcL (140-400); Red Blood Count 4.43 M/mcL (3.82-4.97); Red Cell Distribution Width 18.2 % (11.5-14.5); Segmented Neutrophils % 88.3 %; White Blood Count 8.3 K/mcL (4.3-11.1)
[2020-12-18 21:00] LABS: INR 1.3; Prothrombin Time 15.2 Seconds (9.4-12.1)
[2020-12-18] MEDS ORDERED: Vancomycin 2,000 MG/520 ML IV.SOLN IVPB ONE (21:00)
[2020-12-18] MEDS: 0.9 % Sodium Chloride 1,000 ML IVC SCH ×3 (21:11→22:28)
[2020-12-18 21:16] LABS: Albumin 3.7 g/dL (3.5-5.7); Albumin/Globulin Ratio 0.9 (1.1-2.2); Bilirubin,Direct 0.4 mg/dL (0.0-0.2); Bilirubin,Indirect 0.7 mg/dL (0.0-1.0); Bilirubin,Total 1.1 mg/dL (0.3-1.0); Calcium 9.2 mg/dL (8.6-10.3); Globulin 4.3 g/dL (2.4-3.5); Magnesium 1.7 mg/dL (1.6-2.6); Phosphorous 1.7 mg/dL (2.7-4.5); Troponin I 0.03 ng/mL (< 0.04)
[2020-12-18] MEDS ORDERED: Clindamycin 600 MG/50 ML 600 MG/50 ML IV.SOLN IVPB ONE (22:56)
[2020-12-18] MEDS ORDERED: *HR* Propofol 200 MG/20 ML VIAL IVP ONE (23:06)
[2020-12-18] MEDS ORDERED: *HR* Succinylcholine 200 MG/10 ML VIAL IVP ONE (23:07)
[2020-12-18] MEDS ORDERED: Dexamethasone 4 MG/ML VIAL ONE (23:54)
[2020-12-19] MEDS ORDERED: Lidocaine 5% OINT 35 APPL/35.44 GM TUBE TP ONE (00:03)
[2020-12-19] MEDS ORDERED: Acetaminophen 325 MG TABLET PO PRN (03:16)
[2020-12-19] MEDS ORDERED: Naloxone 0.4 MG/ML INJ IVP PRN (03:16)
[2020-12-19] MEDS ORDERED: Ondansetron ODT 4 MG TAB.RAPDIS SL PRN (03:16)
[2020-12-19] MEDS ORDERED: *HR* Dextrose 50 % in Water (Vial) 50 ML VIAL IVP PRN (03:17)
[2020-12-19] MEDS ORDERED: Dextrose Gel 15 GM/37.5 ML TUBE PO PRN ×2 (03:17)
[2020-12-19] MEDS ORDERED: D5% in Water 1,000 ML IVC PRN (03:17)
[2020-12-19] MEDS: *HR* HYDROcodone/Acet 5/325 mg TABLET PO PRN ×2 (04:23→21:18)
[2020-12-19] MEDS: Piperacillin/Tazobactam 3.375 GM in 0.9 % Sodium Chloride Mini Bag 100 ML IVP SCH ×3 (04:23→21:19)
[2020-12-19] MEDS: Gentamicin Oint 15 GM TUBE TP SCH ×4 (04:24→21:19)
[2020-12-19 05:46] LABS: Basophils % 0.1 %; Hematocrit 36.5 % (35.3-44.9); Hemoglobin 11.2 g/dL (11.5-15.4); Immature Granulocytes % 0.9 % (0-4); Lymphocytes # 0.3 K/mcL (0.6-4.6); Lymphocytes % 4.1 %; Mean Corpuscular HGB Conc 30.7 g/dL (31.6-35.5); Mean Corpuscular Hemoglobin 26.7 pg (28.0-33.3); Mean Corpuscular Volume 87.1 fL (83.0-100.0); Mean Platelet Volume 10.7 fL (9.4-12.4); Monocytes # 0.4 K/mcL (0.0-1.3); Monocytes % 5.4 %; Neutrophils # 7.1 K/mcL (1.6-8.9); Platelet Count 158 K/mcL (140-400); Red Blood Count 4.19 M/mcL (3.82-4.97); Red Cell Distribution Width 18.3 % (11.5-14.5); Segmented Neutrophils % 89.5 %
[2020-12-19 05:55] LABS: Calcium 8.6 mg/dL (8.6-10.3); Potassium 4.3 mEq/L (3.5-5.1)
[2020-12-19] MEDS: *HR* Heparin 5,000 UNIT/ML VIAL SQ SCH ×3 (06:12→21:18)
[2020-12-19] MEDS: Insulin LISPRO 300 UNITS/3 ML VIAL SUBQ SCH ×3 (06:20→18:10)
[2020-12-19] MEDS: Vancomycin 1,500 MG/265 ML IV.SOLN IVPB SCH ×2 (08:35→21:21)
[2020-12-19] MEDS: MethylPREDNISolone 40 MG/ML VIAL IVP SCH ×2 (08:35→16:42)
[2020-12-19] MEDS: Ciprofloxacin/Dex *EAR* Susp 7.5 ML BOTTLE LEFT EAR SCH ×2 (08:36→21:19)
[2020-12-19] MEDS: Melatonin 3 MG TABLET PO PRN (21:18)
[2020-12-20] MEDS: Insulin LISPRO 300 UNITS/3 ML VIAL SUBQ SCH ×5 (01:14→20:01)
[2020-12-20] MEDS: MethylPREDNISolone 40 MG/ML VIAL IVP SCH ×4 (01:14→23:34)
[2020-12-20 01:53] LABS: Basophils % 0.1 %; Hematocrit 37.8 % (35.3-44.9); Hemoglobin 11.3 g/dL (11.5-15.4); Immature Granulocytes % 0.4 % (0-4); Lymphocytes # 0.4 K/mcL (0.6-4.6); Lymphocytes % 4.2 %; Mean Corpuscular HGB Conc 29.9 g/dL (31.6-35.5); Mean Corpuscular Volume 90.4 fL (83.0-100.0); Mean Platelet Volume 11.1 fL (9.4-12.4); Monocytes # 0.5 K/mcL (0.0-1.3); Monocytes % 5.1 %; Neutrophils # 9.1 K/mcL (1.6-8.9); Platelet Count 162 K/mcL (140-400); Red Blood Count 4.18 M/mcL (3.82-4.97); Red Cell Distribution Width 18.4 % (11.5-14.5); Segmented Neutrophils % 90.2 %; White Blood Count 10.1 K/mcL (4.3-11.1)
[2020-12-20 02:12] LABS: Calcium 9.1 mg/dL (8.6-10.3); Phosphorous 3.3 mg/dL (2.7-4.5); Potassium 4.7 mEq/L (3.5-5.1)
[2020-12-20] MEDS: Piperacillin/Tazobactam 3.375 GM in 0.9 % Sodium Chloride Mini Bag 100 ML IVP SCH ×3 (05:02→20:00)
[2020-12-20] MEDS: *HR* Heparin 5,000 UNIT/ML VIAL SQ SCH ×3 (05:04→19:59)
[2020-12-20] MEDS: Pantoprazole 40 MG VIAL IVP SCH (08:29)
[2020-12-20] MEDS: Ciprofloxacin/Dex *EAR* Susp 7.5 ML BOTTLE LEFT EAR SCH ×2 (08:30→20:01)
[2020-12-20] MEDS: Gentamicin Oint 15 GM TUBE TP SCH (08:30)
[2020-12-20] MEDS: Vancomycin 1,500 MG/265 ML IV.SOLN IVPB SCH (08:31)
[2020-12-20 11:18] LABS: Estimated Average Glucose 148 mg/dl; Hemoglobin A1C 6.8 %
[2020-12-20] MEDS: *HR* HYDROcodone/Acet 5/325 mg TABLET PO PRN (20:00)
[2020-12-21] MEDS: *HR* HYDROcodone/Acet 5/325 mg TABLET PO PRN ×2 (02:25→20:31)
[2020-12-21] MEDS ORDERED: Budesonide/Formoterol 160/4.5 1 PUFF INH IH PRN (03:00)
[2020-12-21] MEDS: Piperacillin/Tazobactam 3.375 GM in 0.9 % Sodium Chloride Mini Bag 100 ML IVP SCH ×3 (04:43→19:44)
[2020-12-21] MEDS: *HR* Heparin 5,000 UNIT/ML VIAL SQ SCH ×3 (04:44→20:31)
[2020-12-21 06:01] LABS: Basophils % 0.1 %; Hematocrit 38.1 % (35.3-44.9); Hemoglobin 11.4 g/dL (11.5-15.4); Lymphocytes # 0.4 K/mcL (0.6-4.6); Lymphocytes % 4.6 %; Mean Corpuscular HGB Conc 29.9 g/dL (31.6-35.5); Mean Corpuscular Hemoglobin 26.5 pg (28.0-33.3); Mean Corpuscular Volume 88.4 fL (83.0-100.0); Mean Platelet Volume 10.5 fL (9.4-12.4); Monocytes # 0.3 K/mcL (0.0-1.3); Monocytes % 3.7 %; Neutrophils # 8.4 K/mcL (1.6-8.9); Nucleated Red Blood Cells 0.3 /100 WBC (0); Platelet Count 188 K/mcL (140-400); Red Blood Count 4.31 M/mcL (3.82-4.97); Red Cell Distribution Width 18.6 % (11.5-14.5); Segmented Neutrophils % 90.6 %; White Blood Count 9.3 K/mcL (4.3-11.1)
[2020-12-21 06:20] LABS: Albumin 3.5 g/dL (3.5-5.7); Albumin/Globulin Ratio 0.8 (1.1-2.2); Bilirubin,Direct 0.2 mg/dL (0.0-0.2); Bilirubin,Indirect 0.3 mg/dL (0.0-1.0); Bilirubin,Total 0.5 mg/dL (0.3-1.0); Globulin 4.2 g/dL (2.4-3.5); Total Protein 7.7 g/dL (6.4-8.9)
[2020-12-21 06:22] LABS: Calcium 9.5 mg/dL (8.6-10.3)
[2020-12-21] MEDS: Tiotropium 10 INH DOSE IH SCH (08:27)
[2020-12-21] MEDS: Vancomycin 1,500 MG/265 ML IV.SOLN IVPB SCH (09:17)
[2020-12-21] MEDS: Pantoprazole 40 MG VIAL IVP SCH (09:18)
[2020-12-21] MEDS: MethylPREDNISolone 40 MG/ML VIAL IVP SCH ×3 (09:18→23:31)
[2020-12-21] MEDS: Insulin LISPRO 300 UNITS/3 ML VIAL SUBQ SCH ×4 (09:19→19:53)
[2020-12-21] MEDS: Ciprofloxacin/Dex *EAR* Susp 7.5 ML BOTTLE LEFT EAR SCH ×2 (09:19→20:32)
[2020-12-21] MEDS ORDERED: Ipratropium Neb 0.5 MG NEBULIZER IH PRN (10:10)
[2020-12-21] MEDS: Melatonin 3 MG TABLET PO PRN (20:32)
[2020-12-22 01:40] LABS: Basophils % 0.3 %; Hematocrit 37.2 % (35.3-44.9); Hemoglobin 11.2 g/dL (11.5-15.4); Immature Granulocytes % 1.4 % (0-4); Lymphocytes # 0.5 K/mcL (0.6-4.6); Lymphocytes % 6.9 %; Mean Corpuscular HGB Conc 30.1 g/dL (31.6-35.5); Mean Corpuscular Volume 86.3 fL (83.0-100.0); Mean Platelet Volume 10.8 fL (9.4-12.4); Monocytes # 0.3 K/mcL (0.0-1.3); Monocytes % 4.2 %; Neutrophils # 5.7 K/mcL (1.6-8.9); Nucleated Red Blood Cells 0.5 /100 WBC (0); Platelet Count 198 K/mcL (140-400); Red Blood Count 4.31 M/mcL (3.82-4.97); Red Cell Distribution Width 17.7 % (11.5-14.5); Segmented Neutrophils % 87.2 %; White Blood Count 6.5 K/mcL (4.3-11.1)
[2020-12-22 01:57] LABS: Calcium 9.5 mg/dL (8.6-10.3); Magnesium 2.3 mg/dL (1.6-2.6); Potassium 4.7 mEq/L (3.5-5.1)
[2020-12-22] MEDS: Piperacillin/Tazobactam 3.375 GM in 0.9 % Sodium Chloride Mini Bag 100 ML IVP SCH ×3 (04:41→20:08)
[2020-12-22] MEDS: *HR* Heparin 5,000 UNIT/ML VIAL SQ SCH ×3 (04:41→20:00)
[2020-12-22] MEDS: MethylPREDNISolone 40 MG/ML VIAL IVP SCH (10:10)
[2020-12-22] MEDS: Pantoprazole 40 MG VIAL IVP SCH (10:10)
[2020-12-22] MEDS: Vancomycin 1,500 MG/265 ML IV.SOLN IVPB SCH (10:10)
[2020-12-22] MEDS: Insulin LISPRO 300 UNITS/3 ML VIAL SUBQ SCH ×3 (10:11→17:00)
[2020-12-22] MEDS: Ciprofloxacin/Dex *EAR* Susp 7.5 ML BOTTLE LEFT EAR SCH ×2 (10:12→20:07)
[2020-12-22] MEDS: Tiotropium 10 INH DOSE IH SCH (10:15)
[2020-12-22] MEDS ORDERED: hydrALAZINE 25 MG TABLET PO ONE (14:24)
[2020-12-22] MEDS ORDERED: MethylPREDNISolone 40 MG/ML VIAL IVP SCH (21:00)
[2020-12-23] MEDS: Insulin LISPRO 300 UNITS/3 ML VIAL SUBQ SCH ×5 (00:19→22:02)
[2020-12-23] MEDS: Melatonin 3 MG TABLET PO PRN (01:22)
[2020-12-23 02:23] LABS: Calcium 9.2 mg/dL (8.6-10.3); Potassium 4.1 mEq/L (3.5-5.1)
[2020-12-23] MEDS: *HR* Heparin 5,000 UNIT/ML VIAL SQ SCH ×3 (06:21→21:52)
[2020-12-23] MEDS: Piperacillin/Tazobactam 3.375 GM in 0.9 % Sodium Chloride Mini Bag 100 ML IVP SCH ×3 (06:22→21:51)
[2020-12-23] MEDS: MethylPREDNISolone 40 MG/ML VIAL IVP SCH (08:08)
[2020-12-23] MEDS: Aspirin Enteric Coated 81 MG Tablet PO SCH (08:08)
[2020-12-23] MEDS: Ciprofloxacin/Dex *EAR* Susp 7.5 ML BOTTLE LEFT EAR SCH (08:12)
[2020-12-23] MEDS: Tiotropium 10 INH DOSE IH SCH (08:14)
[2020-12-23] MEDS ORDERED: lisinopriL 5 MG TABLET PO SCH (09:00)
[2020-12-23] MEDS: Vancomycin 1,500 MG/265 ML IV.SOLN IVPB SCH (11:36)
[2020-12-23] MEDS: hydrALAZINE 25 MG TABLET PO SCH ×2 (15:39→21:52)
[2020-12-23] MEDS ORDERED: Melatonin 3 MG TABLET PO SCH (21:00)
[2020-12-23] MEDS: Ofloxacin *EAR* Drops 5 ML BOTTLE LEFT EAR SCH (21:59)
[2020-12-24 01:10] LABS: Basophils % 0.5 %; Eosinophils % 0.1 %; Hematocrit 43.2 % (35.3-44.9); Immature Granulocytes % 3.2 % (0-4); Lymphocytes # 1.2 K/mcL (0.6-4.6); Lymphocytes % 15.7 %; Mean Corpuscular HGB Conc 31.5 g/dL (31.6-35.5); Mean Corpuscular Hemoglobin 26.8 pg (28.0-33.3); Mean Platelet Volume 10.6 fL (9.4-12.4); Monocytes # 0.8 K/mcL (0.0-1.3); Monocytes % 10.2 %; Neutrophils # 5.2 K/mcL (1.6-8.9); Nucleated Red Blood Cells 0.8 /100 WBC (0); Platelet Count 245 K/mcL (140-400); Red Blood Count 5.08 M/mcL (3.82-4.97); Red Cell Distribution Width 17.7 % (11.5-14.5); Segmented Neutrophils % 70.3 %; White Blood Count 7.4 K/mcL (4.3-11.1)
[2020-12-24 01:12] LABS: Hemoglobin 13.6 g/dL (11.5-15.4)
[2020-12-24 05:24] LABS: Potassium 3.3 mEq/L (3.5-5.1)
[2020-12-24] MEDS: Piperacillin/Tazobactam 3.375 GM in 0.9 % Sodium Chloride Mini Bag 100 ML IVP SCH ×2 (05:33→11:53)
[2020-12-24] MEDS: *HR* Heparin 5,000 UNIT/ML VIAL SQ SCH (05:33)
[2020-12-24] MEDS: Insulin LISPRO 300 UNITS/3 ML VIAL SUBQ SCH ×2 (07:31→11:55)
[2020-12-24] MEDS: Tiotropium 10 INH DOSE IH SCH (08:31)
[2020-12-24] MEDS: Aspirin Enteric Coated 81 MG Tablet PO SCH (09:48)
[2020-12-24] MEDS: hydrALAZINE 25 MG TABLET PO SCH (09:48)
[2020-12-24] MEDS: MethylPREDNISolone 40 MG/ML VIAL IVP SCH (09:49)
[2020-12-24] MEDS: Ofloxacin *EAR* Drops 5 ML BOTTLE LEFT EAR SCH (09:54)
[2020-12-24] MEDS ORDERED: Vancomycin 1,250 MG/262.5 ML IV.SOLN IVPB SCH (11:00)
[2020-12-24 11:01] VITALS: BP 127/77
== END 2020-12-24 16:27 | disposition home or self-care (01) | DRG 155 ==
LOC: 2NNU 19:55 → EMEROOARM 19:55 → OBSVTOIN 12-19 01:37 → SUATTDRO 12-19 01:37 → 2NNU 12-19 02:26 → 3NENU 12-23 17:10
PROVIDERS: ADMIT Family Medicine; ATTEND Internal Medicine

== ENCOUNTER 2021-01-07 13:50 | Inpatient (IN) ==
[2021-01-07] MEDS: 0.9 % Sodium Chloride 1,000 ML IVC ONE ×2 (14:38→15:07)
[2021-01-07] MEDS ORDERED: 0.9 % Sodium Chloride 1,000 ML IVC ONE (15:01)
[2021-01-07] MEDS ORDERED: Vancomycin 2,000 MG/520 ML IV.SOLN IVPB ONE (15:22)
[2021-01-07] MEDS ORDERED: Piperacillin/Tazobactam 3.375 GM in 0.9 % Sodium Chloride Mini Bag 100 ML IVPB ONE (15:22)
[2021-01-07 16:28] LABS: Alanine Aminotransferase 12 Units/L (7-52); Albumin/Globulin Ratio 0.8 (1.1-2.2); Alkaline Phosphatase 81 Units/L (34-104); Aspartate Amino Transferase 10 Units/L (13-39); BUN/Creatinine Ratio 9 (6-26); Bilirubin,Direct 0.1 mg/dL (0.0-0.2); Bilirubin,Indirect 0.2 mg/dL (0.0-1.0); Bilirubin,Total 0.3 mg/dL (0.3-1.0); Blood Urea Nitrogen 128 mg/dL (6-20); Calcium 6.7 mg/dL (8.6-10.3); Carbon Dioxide 14 mEq/L (23-29); Chloride 103 mEq/L (98-107); Globulin 3.9 g/dL (2.4-3.5); Glucose 104 mg/dL (70-105); Lipase 124 Units/L (11-82); Magnesium 2.1 mg/dL (1.6-2.6); Osmolality,Calculated 325 (280-300); Potassium 5.8 mEq/L (3.5-5.1); Sodium 137 mEq/L (136-145); Total Protein 6.9 g/dL (6.4-8.9); eGFR For African Americans 3 (> 60); eGFR For Non-African Americans 3 (> 60)
[2021-01-07 16:37] LABS: Troponin I < 0.03 ng/mL (< 0.04)
[2021-01-07] MEDS ORDERED: Albuterol 2.5 MG/3 ML NEBULIZER IH ONE (16:44)
[2021-01-07] MEDS ORDERED: Insulin Human Regular 5 UNIT in 0.9 % Sodium Chloride 10 ML IV ONE (16:44)
[2021-01-07] MEDS ORDERED: Calcium Gluconate 1gm/50mL 1 GM/50 ML BAG IVPB STA ×2 (16:48→16:59)
[2021-01-07] MEDS: Norepinephrine 4 MG/254 ML IV.SOLN IVC SCH (16:50)
[2021-01-07] MEDS ORDERED: Calcium Gluconate 1gm/50mL 1 GM/50 ML BAG IVPB ONE ×2 (17:00→17:20)
[2021-01-07 17:04] LABS: Basophils % 0.7 %; Hematocrit 31.2 % (35.3-44.9); Hemoglobin 9.5 g/dL (11.5-15.4); Immature Granulocytes % 0.2 % (0-4); Lymphocytes # 0.7 K/mcL (0.6-4.6); Lymphocytes % 16.3 %; Mean Corpuscular HGB Conc 30.4 g/dL (31.6-35.5); Mean Corpuscular Hemoglobin 27.4 pg (28.0-33.3); Mean Corpuscular Volume 89.9 fL (83.0-100.0); Mean Platelet Volume 10.9 fL (9.4-12.4); Monocytes # 0.4 K/mcL (0.0-1.3); Neutrophils # 2.9 K/mcL (1.6-8.9); Platelet Count 135 K/mcL (140-400); Red Blood Count 3.47 M/mcL (3.82-4.97); Red Cell Distribution Width 19.9 % (11.5-14.5); Segmented Neutrophils % 71.8 %; White Blood Count 4.1 K/mcL (4.3-11.1)
[2021-01-07] MEDS: *HR* Dextrose 50 % in Water (Vial) 50 ML VIAL IVP ONE ×2 (17:09→18:03)
[2021-01-07] MEDS ORDERED: SODIUM ZIRCONIUM CYCLOSILICATE 5 GM POWD.PACK PO STA (17:20)
[2021-01-07 17:42] LABS: Amorphous Sediment,Urine Few per hpf (None-Few); Bacteria,Urine Few per hpf (None-Few); Bilirubin,Urine Negative (Negative); Blood,Urine Moderate (Negative); Clarity,Urine Ex.Turbid (Clear); Color,Urine Yellow (Yellow); Glucose,Urine (UA) Normal (Normal); Hyaline Casts,Urine Few per lpf (None Seen); Ketones,Urine Negative (Negative); Leukocyte Esterase,Urine Moderate (Negative); Mucus,Urine Few per lpf (None-Few); Nitrite,Urine Negative (Negative); Protein,Urine 70 mg/dL (Neg-Trace); Squamous Epithelial Cell,Urine Few per hpf (None-Few); Urobilinogen,Urine Normal (Normal); WBC,Urine 15-30 per hpf (0-3)
[2021-01-07] MEDS: Calcium Gluconate 1gm/50mL 1 GM/50 ML BAG IVPB STA ×2 (18:05→18:09)
[2021-01-07] MEDS ORDERED: Naloxone 0.4 MG/ML INJ IVP PRN (18:05)
[2021-01-07] MEDS ORDERED: Acetaminophen 325 MG TABLET PO PRN (18:05)
[2021-01-07] MEDS ORDERED: D5% in Water 1,000 ML IVC PRN (18:11)
[2021-01-07] MEDS ORDERED: Dextrose Gel 15 GM/37.5 ML TUBE PO PRN ×2 (18:11)
[2021-01-07] MEDS ORDERED: *HR* Dextrose 50 % in Water (Vial) 50 ML VIAL IVP PRN (18:11)
[2021-01-07] MEDS ORDERED: Nystatin POWDER 30 GM BOTTLE TP PRN (18:12)
[2021-01-07] MEDS ORDERED: *HR* OxyCODONE/APAP 5/325 TABLET PO PRN (18:12)
[2021-01-07] MEDS ORDERED: Albuterol 2.5 MG/3 ML NEBULIZER IH PRN (18:14)
[2021-01-07] MEDS ORDERED: 0.9 % Sodium Chloride 1,000 ML IVC SCH (18:15)
[2021-01-07 19:20] LABS: Estimated Average Glucose 163 mg/dl; Hemoglobin A1C 7.3 %
[2021-01-07] MEDS: Insulin LISPRO 300 UNITS/3 ML VIAL SUBQ SCH (21:42)
[2021-01-07] MEDS: Ofloxacin *EAR* Drops 5 ML BOTTLE LEFT EAR SCH (21:42)
[2021-01-07] MEDS: Ipratropium/Albuterol Neb 3 ML IH SCH ×2 (21:43→23:52)
[2021-01-07 21:46] LABS: Albumin 2.9 g/dL (3.5-5.7); Albumin/Globulin Ratio 0.8 (1.1-2.2); Bilirubin,Total 0.3 mg/dL (0.3-1.0); Calcium 6.5 mg/dL (8.6-10.3); Globulin 3.8 g/dL (2.4-3.5); Potassium 5.4 mEq/L (3.5-5.1); Total Protein 6.7 g/dL (6.4-8.9)
[2021-01-07 22:11] LABS: Phosphorous 12.3 mg/dL (2.7-4.5)
[2021-01-07] MEDS: Albumin 25% 25gram/100mL 25 GM/100 ML IV.SOLN IVC SCH (23:39)
[2021-01-07] MEDS: *HR* Heparin 5,000 UNIT/ML VIAL SQ SCH (23:41)
[2021-01-07] MEDS: Piperacillin/Tazobactam 3.375 GM in 0.9 % Sodium Chloride Mini Bag 100 ML IVPB SCH (23:41)
[2021-01-08 00:13] LABS: VBG Ionized Calcium 0.79 mmol/L (1.15-1.35)
[2021-01-08 00:29] LABS: Calcium 6.1 mg/dL (8.6-10.3); Magnesium 1.9 mg/dL (1.6-2.6); Potassium 5.4 mEq/L (3.5-5.1)
[2021-01-08] MEDS ORDERED: Calcium Gluconate 1gm/50mL 1 GM/50 ML BAG IVPB PRN (00:35)
[2021-01-08] MEDS ORDERED: Sodium Bicarbonate 150 MEQ in Water for inj. (sterile) 1,000 ML IVC SCH (00:50)
[2021-01-08] MEDS: Calcium Gluconate 1gm/50mL 1 GM/50 ML BAG IVPB PRN ×2 (00:52→01:44)
[2021-01-08] MEDS: Norepinephrine 4 MG/254 ML IV.SOLN IVC SCH ×3 (01:08→10:50)
[2021-01-08] MEDS: Albumin 25% 25gram/100mL 25 GM/100 ML IV.SOLN IVC SCH (01:20)
[2021-01-08] MEDS: Sodium Bicarbonate 150 MEQ in D5% in Water 1,000 ML IVC SCH ×2 (01:34→12:42)
[2021-01-08] MEDS: Ipratropium/Albuterol Neb 3 ML IH SCH ×6 (03:44→23:34)
[2021-01-08 03:50] LABS: Basophils # 0.1 K/mcL (0.0-0.2); Basophils % 0.9 %; Eosinophils # 0.1 K/mcL (0.0-0.6); Eosinophils % 1.4 %; Hematocrit 32.5 % (35.3-44.9); Hemoglobin 9.8 g/dL (11.5-15.4); Immature Granulocytes % 0.5 % (0-4); Lymphocytes % 18.8 %; Mean Corpuscular HGB Conc 30.2 g/dL (31.6-35.5); Mean Corpuscular Hemoglobin 26.4 pg (28.0-33.3); Mean Corpuscular Volume 87.6 fL (83.0-100.0); Mean Platelet Volume 10.5 fL (9.4-12.4); Monocytes # 0.6 K/mcL (0.0-1.3); Monocytes % 10.1 %; Neutrophils # 3.8 K/mcL (1.6-8.9); Nucleated Red Blood Cells 0.4 /100 WBC (0); Platelet Count 160 K/mcL (140-400); Red Blood Count 3.71 M/mcL (3.82-4.97); Red Cell Distribution Width 19.9 % (11.5-14.5); Segmented Neutrophils % 68.3 %; White Blood Count 5.5 K/mcL (4.3-11.1)
[2021-01-08 04:14] LABS: Albumin 3.4 g/dL (3.5-5.7); Albumin/Globulin Ratio 0.9 (1.1-2.2); Bilirubin,Direct 0.1 mg/dL (0.0-0.2); Bilirubin,Indirect 0.3 mg/dL (0.0-1.0); Bilirubin,Total 0.4 mg/dL (0.3-1.0); Calcium 6.5 mg/dL (8.6-10.3); Globulin 3.6 g/dL (2.4-3.5); Magnesium 1.9 mg/dL (1.6-2.6); Phosphorous 11.3 mg/dL (2.7-4.5); Potassium 5.3 mEq/L (3.5-5.1)
[2021-01-08] MEDS: Piperacillin/Tazobactam 3.375 GM in 0.9 % Sodium Chloride Mini Bag 100 ML IVPB SCH ×2 (07:47→17:01)
[2021-01-08] MEDS: Pantoprazole 40 MG VIAL IVP SCH (07:48)
[2021-01-08] MEDS: Loratadine 10 MG TABLET PO SCH (07:49)
[2021-01-08] MEDS: Insulin LISPRO 300 UNITS/3 ML VIAL SUBQ SCH ×4 (07:49→21:40)
[2021-01-08] MEDS: *HR* Heparin 5,000 UNIT/ML VIAL SQ SCH ×3 (07:49→23:29)
[2021-01-08 08:50] LABS: VBG Ionized Calcium 0.78 mmol/L (1.15-1.35)
[2021-01-08] MEDS ORDERED: Fluconazole 150 MG TABLET PO SCH (09:00)
[2021-01-08 09:08] LABS: Calcium 6.5 mg/dL (8.6-10.3); Potassium 5.3 mEq/L (3.5-5.1)
[2021-01-08 10:54] LABS: Sodium, Urine 57.7 mEq/L
[2021-01-08 10:55] LABS: Amorphous Sediment,Urine Few per hpf (None-Few); Bacteria,Urine Few per hpf (None-Few); Bilirubin,Urine Negative (Negative); Blood,Urine Moderate (Negative); Clarity,Urine Clear (Clear); Color,Urine Light-Yellow (Yellow); Glucose,Urine (UA) Normal (Normal); Hyaline Casts,Urine Few per lpf (None Seen); Ketones,Urine Negative (Negative); Leukocyte Esterase,Urine Trace (Negative); Mucus,Urine Few per lpf (None-Few); Nitrite,Urine Negative (Negative); PH,Urine 5.5 pH Units (5.0-8.0); Protein,Urine 50 mg/dL (Neg-Trace); RBC,Urine 0-3 per hpf (0-3); Specific Gravity,Urine 1.013 (1.010-1.025); Squamous Epithelial Cell,Urine Few per hpf (None-Few); Urobilinogen,Urine Normal (Normal)
[2021-01-08] MEDS ORDERED: Calcium Chloride 2,000 MG in 0.9 % Sodium Chloride 100 ML IVPB ONE ×2 (11:00→16:45)
[2021-01-08] MEDS: Hydrocortisone Sodium Succ 100 MG/2 ML VIAL IVP SCH ×3 (12:42→23:29)
[2021-01-08 13:39] LABS: Calcium 6.3 mg/dL (8.6-10.3); Potassium 5.3 mEq/L (3.5-5.1)
[2021-01-08 15:48] LABS: VBG Ionized Calcium 0.91 mmol/L (1.15-1.35)
[2021-01-08 19:08] LABS: VBG Ionized Calcium 1.08 mmol/L (1.15-1.35)
[2021-01-08] MEDS: Ofloxacin *EAR* Drops 5 ML BOTTLE LEFT EAR SCH (19:47)
[2021-01-08 23:25] LABS: Calcium 7.8 mg/dL (8.6-10.3); Potassium 5.3 mEq/L (3.5-5.1)
[2021-01-09] MEDS: Ipratropium/Albuterol Neb 3 ML IH SCH ×7 (03:36→23:52)
[2021-01-09 04:25] LABS: Basophils % 0.4 %; Hematocrit 32.7 % (35.3-44.9); Hemoglobin 9.9 g/dL (11.5-15.4); Immature Granulocytes % 0.7 % (0-4); Lymphocytes # 0.2 K/mcL (0.6-4.6); Mean Corpuscular HGB Conc 30.3 g/dL (31.6-35.5); Mean Corpuscular Hemoglobin 26.7 pg (28.0-33.3); Mean Corpuscular Volume 88.1 fL (83.0-100.0); Mean Platelet Volume 11.6 fL (9.4-12.4); Monocytes # 0.1 K/mcL (0.0-1.3); Monocytes % 3.3 %; Neutrophils # 2.4 K/mcL (1.6-8.9); Platelet Count 115 K/mcL (140-400); Red Blood Count 3.71 M/mcL (3.82-4.97); Red Cell Distribution Width 19.5 % (11.5-14.5); Segmented Neutrophils % 87.6 %
[2021-01-09 04:27] LABS: White Blood Count 2.7 K/mcL (4.3-11.1)
[2021-01-09 04:37] LABS: Calcium 7.6 mg/dL (8.6-10.3); Magnesium 1.8 mg/dL (1.6-2.6); Phosphorous 10.8 mg/dL (2.7-4.5); Potassium 5.3 mEq/L (3.5-5.1)
[2021-01-09 05:07] LABS: VBG Ionized Calcium 0.96 mmol/L (1.15-1.35)
[2021-01-09] MEDS: Hydrocortisone Sodium Succ 100 MG/2 ML VIAL IVP SCH ×4 (05:49→23:18)
[2021-01-09] MEDS: Piperacillin/Tazobactam 3.375 GM in 0.9 % Sodium Chloride Mini Bag 100 ML IVPB SCH ×2 (05:50→17:18)
[2021-01-09] MEDS: Calcium Gluconate 1gm/50mL 1 GM/50 ML BAG IVPB PRN (07:11)
[2021-01-09] MEDS: Pantoprazole 40 MG VIAL IVP SCH (07:53)
[2021-01-09] MEDS: *HR* Heparin 5,000 UNIT/ML VIAL SQ SCH ×3 (07:53→23:19)
[2021-01-09] MEDS: Loratadine 10 MG TABLET PO SCH (07:53)
[2021-01-09] MEDS ORDERED: Calcium Chloride 2,000 MG in 0.9 % Sodium Chloride 100 ML IVPB ONE (08:45)
[2021-01-09] MEDS: Insulin LISPRO 300 UNITS/3 ML VIAL SUBQ SCH ×4 (09:11→20:55)
[2021-01-09] MEDS ORDERED: *HR* OxyCODONE/APAP 5/325 TABLET PO PRN (11:35)
[2021-01-09] MEDS ORDERED: Acetaminophen 325 MG TABLET PO PRN (11:35)
[2021-01-09] MEDS ORDERED: D5% in Water 1,000 ML IVC PRN (11:35)
[2021-01-09] MEDS ORDERED: Nystatin POWDER 30 GM BOTTLE TP PRN (11:35)
[2021-01-09] MEDS ORDERED: *HR* Dextrose 50 % in Water (Vial) 50 ML VIAL IVP PRN (11:35)
[2021-01-09] MEDS ORDERED: Dextrose Gel 15 GM/37.5 ML TUBE PO PRN ×2 (11:35)
[2021-01-09] MEDS ORDERED: Albuterol 2.5 MG/3 ML NEBULIZER IH PRN (11:35)
[2021-01-09] MEDS ORDERED: Naloxone 0.4 MG/ML INJ IVP PRN (11:35)
[2021-01-09] MEDS: Ofloxacin *EAR* Drops 5 ML BOTTLE LEFT EAR SCH (20:54)
[2021-01-10 03:17] LABS: Hematocrit 31.1 % (35.3-44.9); Hemoglobin 9.4 g/dL (11.5-15.4); Immature Granulocytes % 0.3 % (0-4); Lymphocytes # 0.2 K/mcL (0.6-4.6); Lymphocytes % 8.3 %; Mean Corpuscular HGB Conc 30.2 g/dL (31.6-35.5); Mean Corpuscular Hemoglobin 26.3 pg (28.0-33.3); Mean Corpuscular Volume 87.1 fL (83.0-100.0); Mean Platelet Volume 10.7 fL (9.4-12.4); Monocytes # 0.2 K/mcL (0.0-1.3); Monocytes % 6.3 %; Neutrophils # 2.5 K/mcL (1.6-8.9); Platelet Count 105 K/mcL (140-400); Red Blood Count 3.57 M/mcL (3.82-4.97); Red Cell Distribution Width 19.1 % (11.5-14.5); Segmented Neutrophils % 85.1 %; White Blood Count 2.9 K/mcL (4.3-11.1)
[2021-01-10 03:38] LABS: VBG Ionized Calcium 0.91 mmol/L (1.15-1.35)
[2021-01-10 03:42] LABS: Albumin 3.2 g/dL (3.5-5.7); Albumin/Globulin Ratio 0.8 (1.1-2.2); Bilirubin,Total 0.3 mg/dL (0.3-1.0); Calcium 7.6 mg/dL (8.6-10.3); Globulin 3.8 g/dL (2.4-3.5); Magnesium 1.8 mg/dL (1.6-2.6); Phosphorous 9.9 mg/dL (2.7-4.5); Potassium 5.1 mEq/L (3.5-5.1)
[2021-01-10] MEDS: Ipratropium/Albuterol Neb 3 ML IH SCH ×6 (04:09→23:07)
[2021-01-10] MEDS: Hydrocortisone Sodium Succ 100 MG/2 ML VIAL IVP SCH ×3 (05:26→18:18)
[2021-01-10] MEDS: Piperacillin/Tazobactam 3.375 GM in 0.9 % Sodium Chloride Mini Bag 100 ML IVPB SCH (05:27)
[2021-01-10] MEDS: Insulin LISPRO 300 UNITS/3 ML VIAL SUBQ SCH ×4 (08:41→20:11)
[2021-01-10] MEDS: *HR* Heparin 5,000 UNIT/ML VIAL SQ SCH ×2 (08:42→15:41)
[2021-01-10] MEDS: Pantoprazole 40 MG VIAL IVP SCH (08:43)
[2021-01-10] MEDS: Loratadine 10 MG TABLET PO SCH (08:43)
[2021-01-10] MEDS: Cefepime HCl 1,000 MG in 0.9 % Sodium Chloride Mini Bag 100 ML IVPB SCH (18:17)
[2021-01-10] MEDS: Ofloxacin *EAR* Drops 5 ML BOTTLE LEFT EAR SCH (20:11)
[2021-01-11] MEDS: *HR* Heparin 5,000 UNIT/ML VIAL SQ SCH ×4 (00:12→23:46)
[2021-01-11] MEDS: Hydrocortisone Sodium Succ 100 MG/2 ML VIAL IVP SCH ×5 (00:12→23:45)
[2021-01-11] MEDS: Ipratropium/Albuterol Neb 3 ML IH SCH ×2 (04:03→08:00)
[2021-01-11] MEDS: Insulin LISPRO 300 UNITS/3 ML VIAL SUBQ SCH ×4 (07:48→21:53)
[2021-01-11] MEDS ORDERED: Ipratropium/Albuterol Neb 3 ML IH PRN (08:00)
[2021-01-11] MEDS: Pantoprazole 40 MG VIAL IVP SCH (08:42)
[2021-01-11] MEDS: Loratadine 10 MG TABLET PO SCH (08:43)
[2021-01-11 09:52] LABS: Calcium 6.8 mg/dL (8.6-10.3); Potassium 4.6 mEq/L (3.5-5.1)
[2021-01-11] MEDS: Cefepime HCl 1,000 MG in 0.9 % Sodium Chloride Mini Bag 100 ML IVPB SCH (17:43)
[2021-01-11] MEDS: Ofloxacin *EAR* Drops 5 ML BOTTLE LEFT EAR SCH (21:53)
[2021-01-12 03:42] LABS: Calcium 6.3 mg/dL (8.6-10.3); Magnesium 1.7 mg/dL (1.6-2.6); Potassium 4.8 mEq/L (3.5-5.1)
[2021-01-12 03:46] LABS: Hemoglobin 9.2 g/dL (11.5-15.4); Mean Corpuscular HGB Conc 29.7 g/dL (31.6-35.5); Mean Corpuscular Hemoglobin 26.4 pg (28.0-33.3); Mean Corpuscular Volume 89.1 fL (83.0-100.0); Mean Platelet Volume 11.1 fL (9.4-12.4); Red Blood Count 3.48 M/mcL (3.82-4.97); Red Cell Distribution Width 18.9 % (11.5-14.5); White Blood Count 2.3 K/mcL (4.3-11.1)
[2021-01-12 03:47] LABS: Platelet Count 91 K/mcL (140-400)
[2021-01-12] MEDS: Hydrocortisone Sodium Succ 100 MG/2 ML VIAL IVP SCH ×4 (05:02→23:21)
[2021-01-12] MEDS ORDERED: 0.9 % Sodium Chloride 250 ML IVC PRN (07:31)
[2021-01-12] MEDS ORDERED: 0.9 % Sodium Chloride 1,000 ML PRIME SCH (07:45)
[2021-01-12] MEDS: Insulin LISPRO 300 UNITS/3 ML VIAL SUBQ SCH ×4 (07:46→20:33)
[2021-01-12] MEDS: *HR* Heparin 5,000 UNIT/ML VIAL SQ SCH ×3 (08:30→23:19)
[2021-01-12] MEDS ORDERED: Heparin 1,000 UNITS/500 mL 500 ML ONE (08:51)
[2021-01-12] MEDS ORDERED: *HR* Heparin 5,000 UNIT/ML VIAL ONE (09:59)
[2021-01-12 10:54] LABS: VBG Ionized Calcium 0.79 mmol/L (1.15-1.35)
[2021-01-12] MEDS: Loratadine 10 MG TABLET PO SCH (11:19)
[2021-01-12] MEDS: levoFLOXacin 500 MG TABLET PO SCH (11:19)
[2021-01-12 12:11] LABS: Hepatitis B Surface Antibody 3.16 mIU/mL
[2021-01-12 15:04] LABS: Hepatitis B Surface Antigen Nonreactive (Nonreactive)
[2021-01-12] MEDS ORDERED: Ergocalciferol (VIT D2) 50,000 UNIT (1.25MG) CAP PO SCH ×2 (18:12)
[2021-01-12] MEDS: Budesonide/Formoterol 80/4.5 1 PUFF INH IH SCH (19:57)
[2021-01-12] MEDS: Ofloxacin *EAR* Drops 5 ML BOTTLE LEFT EAR SCH (20:34)
[2021-01-13 03:18] LABS: Red Cell Distribution Width 18.1 % (11.5-14.5)
[2021-01-13 03:20] LABS: Hematocrit 31.5 % (35.3-44.9); Hemoglobin 9.6 g/dL (11.5-15.4); Immature Granulocytes % 0.5 % (0-4); Immature Platelets 4.9 % (1.1-6.1); Lymphocytes # 0.3 K/mcL (0.6-4.6); Lymphocytes % 13.5 %; Mean Corpuscular HGB Conc 30.5 g/dL (31.6-35.5); Mean Corpuscular Hemoglobin 26.4 pg (28.0-33.3); Mean Corpuscular Volume 86.8 fL (83.0-100.0); Mean Platelet Volume 10.8 fL (9.4-12.4); Monocytes # 0.2 K/mcL (0.0-1.3); Monocytes % 7.2 %; Neutrophils # 1.7 K/mcL (1.6-8.9); Red Blood Count 3.63 M/mcL (3.82-4.97); Segmented Neutrophils % 78.8 %; White Blood Count 2.1 K/mcL (4.3-11.1)
[2021-01-13 03:21] LABS: Platelet Count 83 K/mcL (140-400)
[2021-01-13 03:36] LABS: Calcium 6.7 mg/dL (8.6-10.3)
[2021-01-13] MEDS: Hydrocortisone Sodium Succ 100 MG/2 ML VIAL IVP SCH ×3 (05:15→17:53)
[2021-01-13] MEDS ORDERED: 0.9 % Sodium Chloride 250 ML IVC PRN (07:26)
[2021-01-13] MEDS: Loratadine 10 MG TABLET PO SCH (08:34)
[2021-01-13] MEDS: *HR* Heparin 5,000 UNIT/ML VIAL SQ SCH ×3 (08:35→23:31)
[2021-01-13] MEDS: Insulin LISPRO 300 UNITS/3 ML VIAL SUBQ SCH ×4 (08:35→21:35)
[2021-01-13] MEDS: Tiotropium 10 INH DOSE IH SCH (09:45)
[2021-01-13] MEDS: Budesonide/Formoterol 80/4.5 1 PUFF INH IH SCH ×2 (09:46→19:34)
[2021-01-13] MEDS ORDERED: *HR* Heparin 10,000 UNIT/10 ML VIAL ONE (11:28)
[2021-01-13] MEDS: Ofloxacin *EAR* Drops 5 ML BOTTLE LEFT EAR SCH (20:02)
[2021-01-14] MEDS: Ondansetron 4 MG/2 ML VIAL IVP PRN (00:10)
[2021-01-14 03:38] LABS: Hemoglobin 9.4 g/dL (11.5-15.4)
[2021-01-14 03:40] LABS: Hematocrit 30.8 % (35.3-44.9); Immature Platelets 6.1 % (1.1-6.1); Mean Corpuscular HGB Conc 30.5 g/dL (31.6-35.5); Mean Corpuscular Hemoglobin 26.8 pg (28.0-33.3); Mean Corpuscular Volume 87.7 fL (83.0-100.0); Mean Platelet Volume 10.7 fL (9.4-12.4); Red Blood Count 3.51 M/mcL (3.82-4.97); Red Cell Distribution Width 17.6 % (11.5-14.5); White Blood Count 2.6 K/mcL (4.3-11.1)
[2021-01-14 03:56] LABS: Magnesium 1.6 mg/dL (1.6-2.6); Potassium 3.3 mEq/L (3.5-5.1)
[2021-01-14] MEDS: Hydrocortisone Sodium Succ 100 MG/2 ML VIAL IVP SCH (05:38)
[2021-01-14] MEDS: Budesonide/Formoterol 80/4.5 1 PUFF INH IH SCH ×2 (07:31→20:24)
[2021-01-14] MEDS: Tiotropium 10 INH DOSE IH SCH (07:31)
[2021-01-14] MEDS: Insulin LISPRO 300 UNITS/3 ML VIAL SUBQ SCH ×4 (07:52→22:06)
[2021-01-14] MEDS: predniSONE 20 MG TABLET PO SCH (08:26)
[2021-01-14] MEDS: Loratadine 10 MG TABLET PO SCH (08:26)
[2021-01-14] MEDS: levoFLOXacin 500 MG TABLET PO SCH (08:26)
[2021-01-14] MEDS: *HR* Heparin 5,000 UNIT/ML VIAL SQ SCH ×2 (08:26→17:12)
[2021-01-14] MEDS: *HR* OxyCODONE/APAP 5/325 TABLET PO PRN (11:27)
[2021-01-14] MEDS: Ofloxacin *EAR* Drops 5 ML BOTTLE LEFT EAR SCH (19:34)
[2021-01-15] MEDS: *HR* Heparin 5,000 UNIT/ML VIAL SQ SCH ×4 (00:11→23:17)
[2021-01-15] MEDS: *HR* OxyCODONE/APAP 5/325 TABLET PO PRN ×2 (00:11→09:28)
[2021-01-15] MEDS: Ondansetron 4 MG/2 ML VIAL IVP PRN (00:28)
[2021-01-15 05:22] LABS: Eosinophils % 0.4 %; Hematocrit 32.9 % (35.3-44.9); Hemoglobin 9.9 g/dL (11.5-15.4); Immature Granulocytes % 0.4 % (0-4); Immature Platelets 8.2 % (1.1-6.1); Lymphocytes # 0.3 K/mcL (0.6-4.6); Mean Corpuscular HGB Conc 30.1 g/dL (31.6-35.5); Mean Corpuscular Hemoglobin 26.6 pg (28.0-33.3); Mean Corpuscular Volume 88.4 fL (83.0-100.0); Mean Platelet Volume 11.6 fL (9.4-12.4); Monocytes # 0.3 K/mcL (0.0-1.3); Monocytes % 11.2 %; Neutrophils # 1.8 K/mcL (1.6-8.9); Red Blood Count 3.72 M/mcL (3.82-4.97); White Blood Count 2.4 K/mcL (4.3-11.1)
[2021-01-15 05:24] LABS: Platelet Count 71 K/mcL (140-400)
[2021-01-15 05:32] LABS: Calcium 6.7 mg/dL (8.6-10.3)
[2021-01-15] MEDS: Insulin LISPRO 300 UNITS/3 ML VIAL SUBQ SCH ×4 (09:16→20:43)
[2021-01-15] MEDS: Loratadine 10 MG TABLET PO SCH (09:27)
[2021-01-15] MEDS: predniSONE 20 MG TABLET PO SCH (09:28)
[2021-01-15] MEDS: hydrALAZINE 25 MG TABLET PO SCH ×3 (09:28→23:17)
[2021-01-15] MEDS: Tiotropium 10 INH DOSE IH SCH (10:43)
[2021-01-15] MEDS: Budesonide/Formoterol 80/4.5 1 PUFF INH IH SCH ×2 (10:45→19:57)
[2021-01-15] MEDS: amLODIPine 5 MG TABLET PO SCH (15:15)
[2021-01-15] MEDS ORDERED: *HR* Metoprolol 5 MG/5 ML VIAL IVP STA (16:32)
[2021-01-15] MEDS ORDERED: Perflutren Lipid Microsphere 1.3 ML in 0.9 % Sodium Chloride 8.7 ML IVP PRN (16:36)
[2021-01-15] MEDS ORDERED: *HR* Heparin 5,000 UNIT/ML VIAL IVP PRN ×2 (16:42)
[2021-01-15] MEDS ORDERED: *HR* Heparin 5,000 UNIT/ML VIAL IVP ONE (16:42)
[2021-01-15] MEDS ORDERED: Heparin 25,000UNIT/250ML 1/2NS 25,000 UNIT/250 ML IV.SOLN IVC SCH (16:45)
[2021-01-15] MEDS: Metoprolol XL (24 HR) Succ 25 MG TAB.ER.24H PO SCH (17:24)
[2021-01-15] MEDS: Ofloxacin *EAR* Drops 5 ML BOTTLE LEFT EAR SCH (20:59)
[2021-01-16 03:57] LABS: Eosinophils % 0.3 %
[2021-01-16 03:59] LABS: Hemoglobin 9.9 g/dL (11.5-15.4); Immature Granulocytes % 0.3 % (0-4); Immature Platelets 8.1 % (1.1-6.1); Lymphocytes # 0.6 K/mcL (0.6-4.6); Lymphocytes % 19.3 %; Mean Corpuscular Hemoglobin 26.7 pg (28.0-33.3); Mean Corpuscular Volume 88.9 fL (83.0-100.0); Mean Platelet Volume 11.3 fL (9.4-12.4); Monocytes # 0.4 K/mcL (0.0-1.3); Neutrophils # 2.3 K/mcL (1.6-8.9); Red Blood Count 3.71 M/mcL (3.82-4.97); Red Cell Distribution Width 16.9 % (11.5-14.5); Segmented Neutrophils % 69.1 %; White Blood Count 3.3 K/mcL (4.3-11.1)
[2021-01-16 04:11] LABS: Platelet Count 79 K/mcL (140-400)
[2021-01-16 04:15] LABS: Calcium 6.8 mg/dL (8.6-10.3); Potassium 3.7 mEq/L (3.5-5.1)
[2021-01-16] MEDS: Insulin LISPRO 300 UNITS/3 ML VIAL SUBQ SCH ×3 (09:13→17:09)
[2021-01-16] MEDS: amLODIPine 5 MG TABLET PO SCH (09:24)
[2021-01-16] MEDS: *HR* Heparin 5,000 UNIT/ML VIAL SQ SCH ×2 (09:24→17:08)
[2021-01-16] MEDS: predniSONE 20 MG TABLET PO SCH (09:24)
[2021-01-16] MEDS: Loratadine 10 MG TABLET PO SCH (09:25)
[2021-01-16] MEDS: Metoprolol XL (24 HR) Succ 25 MG TAB.ER.24H PO SCH (09:25)
[2021-01-16] MEDS: hydrALAZINE 25 MG TABLET PO SCH ×2 (09:25→17:08)
[2021-01-16] MEDS: *HR* OxyCODONE/APAP 5/325 TABLET PO PRN (09:46)
[2021-01-16] MEDS: levoFLOXacin 500 MG TABLET PO SCH (10:15)
[2021-01-16] MEDS: Tiotropium 10 INH DOSE IH SCH (10:38)
[2021-01-16] MEDS: Budesonide/Formoterol 80/4.5 1 PUFF INH IH SCH (10:38)
[2021-01-16 16:54] VITALS: BP 118/81
[2021-01-17] MEDS ORDERED: predniSONE 20 MG TABLET PO SCH (09:00)
== END 2021-01-16 21:32 | disposition home health service (06) | DRG 871 ==
LOC: EMEROOARM 13:50 → ICNU 17:50 → SUATTDRO 17:50 → ICNU 21:01 → 2ANU 01-09 11:46
PROVIDERS: ADMIT Pediatrics; ATTEND Internal Medicine

== ENCOUNTER 2021-04-02 07:01 | Observation (INO) ==
[2021-04-02] MEDS ORDERED: Piperacillin/Tazobactam 3.375 GM in 0.9 % Sodium Chloride Mini Bag 100 ML IVPB ONE (08:36)
[2021-04-02] MEDS ORDERED: 0.9 % Sodium Chloride 1,000 ML IVC ONE (08:39)
[2021-04-02] MEDS ORDERED: Vancomycin 2,000 MG/520 ML IV.SOLN IVPB ONE (09:00)
[2021-04-02 09:08] LABS: Eosinophils % 0.1 %; Hematocrit 30.7 % (35.3-44.9); Hemoglobin 9.3 g/dL (11.5-15.4); Immature Granulocytes % 0.3 % (0-4); Mean Corpuscular HGB Conc 30.3 g/dL (31.6-35.5); Mean Corpuscular Hemoglobin 27.6 pg (28.0-33.3); Mean Corpuscular Volume 91.1 fL (83.0-100.0); Red Blood Count 3.37 M/mcL (3.82-4.97)
[2021-04-02 09:10] LABS: Immature Platelets 6.6 % (1.1-6.1); Lymphocytes # 0.7 K/mcL (0.6-4.6); Mean Platelet Volume 11.5 fL (9.4-12.4); Monocytes # 0.5 K/mcL (0.0-1.3); Monocytes % 7.7 %; Platelet Count 128 K/mcL (140-400); Red Cell Distribution Width 17.4 % (11.5-14.5); Segmented Neutrophils % 81.9 %
[2021-04-02 09:11] LABS: Neutrophils # 5.7 K/mcL (1.6-8.9)
[2021-04-02 09:32] LABS: Calcium 8.4 mg/dL (8.6-10.3); Potassium 3.1 mEq/L (3.5-5.1); Troponin I 0.03 ng/mL (< 0.04)
[2021-04-02] MEDS ORDERED: Potassium Chloride Elixir 20 MEQ/15 ML UDC PO ONE (10:02)
[2021-04-02] MEDS ORDERED: Ondansetron 4 MG/2 ML VIAL IVP PRN (11:04)
[2021-04-02] MEDS ORDERED: Acetaminophen 325 MG TABLET PO PRN (11:04)
[2021-04-02] MEDS ORDERED: Naloxone 0.4 MG/ML INJ IVP PRN (11:04)
[2021-04-02] MEDS ORDERED: D5% in Water 1,000 ML IVC PRN (11:15)
[2021-04-02] MEDS ORDERED: *HR* Dextrose 50 % in Water (Vial) 50 ML VIAL IVP PRN (11:15)
[2021-04-02] MEDS ORDERED: Dextrose Gel 15 GM/37.5 ML TUBE PO PRN ×2 (11:15)
[2021-04-02] MEDS: Insulin LISPRO 300 UNITS/3 ML VIAL SUBQ SCH ×2 (13:01→16:18)
[2021-04-02] MEDS: levoFLOXacin 750 MG/150 ML 750 MG/150 ML BAG IVPB SCH (13:03)
[2021-04-02] MEDS ORDERED: Insulin LISPRO 300 UNITS/3 ML VIAL SUBQ SCH (21:00)
[2021-04-03 02:10] LABS: VBG HCO3 22 mEq/L (21-27); VBG PCO2 32 mmHg (41-51); VBG PH 7.45 pH Units (7.32-7.42); VBG PO2 110 mmHg (25-50)
[2021-04-03 02:24] LABS: Calcium 8.1 mg/dL (8.6-10.3); Magnesium 1.9 mg/dL (1.6-2.6); Potassium 3.8 mEq/L (3.5-5.1)
[2021-04-03] MEDS: *HR* Heparin 5,000 UNIT/ML VIAL SQ SCH ×2 (05:11→17:11)
[2021-04-03 05:36] LABS: Basophils % 0.4 %; Eosinophils % 0.9 %; Hematocrit 27.8 % (35.3-44.9); Hemoglobin 8.3 g/dL (11.5-15.4); Immature Granulocytes % 0.4 % (0-4); Lymphocytes # 0.7 K/mcL (0.6-4.6); Mean Corpuscular HGB Conc 29.9 g/dL (31.6-35.5); Mean Corpuscular Hemoglobin 27.2 pg (28.0-33.3); Mean Corpuscular Volume 91.1 fL (83.0-100.0); Mean Platelet Volume 11.4 fL (9.4-12.4); Monocytes # 0.3 K/mcL (0.0-1.3); Monocytes % 7.2 %; Neutrophils # 3.6 K/mcL (1.6-8.9); Platelet Count 127 K/mcL (140-400); Red Blood Count 3.05 M/mcL (3.82-4.97); Red Cell Distribution Width 17.7 % (11.5-14.5); Segmented Neutrophils % 77.1 %; White Blood Count 4.7 K/mcL (4.3-11.1)
[2021-04-03] MEDS: Insulin LISPRO 300 UNITS/3 ML VIAL SUBQ SCH ×3 (07:49→17:06)
[2021-04-03] MEDS: levoFLOXacin 750 MG/150 ML 750 MG/150 ML BAG IVPB SCH (08:42)
[2021-04-03 10:48] VITALS: PULSE 60
[2021-04-03 16:01] VITALS: BP 120/80; TEMP 98.2; O2SAT 94
== END 2021-04-03 18:30 | disposition home or self-care (01) ==
LOC: EMEROOARM 07:01 → 3ANU 07:01
PROVIDERS: ADMIT Pharmacist; ATTEND Pharmacist

== ENCOUNTER 2021-07-01 19:14 | Inpatient (IN) ==
[2021-07-01] MEDS ORDERED: Isovue-370 500 ML BOTTLE IVP ONE (19:24)
[2021-07-01] MEDS ORDERED: 0.9 % Sodium Chloride 1,000 ML IVC ONE (19:24)
[2021-07-01 20:34] LABS: Albumin 3.1 g/dL (3.5-5.7); Albumin/Globulin Ratio 1.1 (1.1-2.2); Bilirubin,Direct 0.2 mg/dL (0.0-0.2); Bilirubin,Indirect 0.5 mg/dL (0.0-1.0); Bilirubin,Total 0.7 mg/dL (0.3-1.0); Calcium 9.5 mg/dL (8.6-10.3); Globulin 2.8 g/dL (2.4-3.5); Magnesium 1.8 mg/dL (1.6-2.6); Potassium 3.6 mEq/L (3.5-5.1); Total Protein 5.9 g/dL (6.4-8.9)
[2021-07-01 20:36] LABS: Troponin I 0.04 ng/mL (< 0.04)
[2021-07-01 20:42] LABS: Bilirubin,Urine Small (Negative); Blood,Urine Trace-lysed (Negative); Clarity,Urine Turbid (Clear); Color,Urine Yellow (Yellow); Glucose,Urine (UA) Normal (Normal); Ketones,Urine 15 mg/dL (Negative); Leukocyte Esterase,Urine Moderate (Negative); Nitrite,Urine Positive (Negative); Protein,Urine 30 mg/dL (Neg-Trace); Specific Gravity,Urine 1.015 (1.010-1.025); Urobilinogen,Urine Normal (Normal)
[2021-07-01] MEDS ORDERED: 0.9 % Sodium Chloride 1,000 ML ONE (22:05)
[2021-07-01] MEDS: 0.9 % Sodium Chloride 2,000 ML IV ONE (22:08)
[2021-07-01] MEDS ORDERED: cefTRIAXone 1,000 MG in 0.9 % Sodium Chloride Mini Bag 100 ML IVPB ONE (22:16)
[2021-07-01] MEDS ORDERED: Azithromycin 500 MG in 0.9 % Sodium Chloride 250 ML IVPB ONE (22:16)
[2021-07-01] MEDS ORDERED: cefTRIAXone 1,000 MG in Water for inj. (sterile) 10 ML IVP ONE (22:45)
[2021-07-01 23:12] LABS: Adenovirus Not Detected (Not Detect); Bordetella Pertussis Not Detected (Not Detect); Chlamydophila pneumoniae Not Detected (Not Detect); Coronavirus 229E Not Detected (Not Detect); Coronavirus HKU1 Not Detected (Not Detect); Coronavirus NL63 Not Detected (Not Detect); Coronavirus OC43 Not Detected (Not Detect); Human Metapneumovirus Not Detected (Not Detect); Human Rhinovirus/Enterovirus Not Detected (Not Detect); Influenza A Subtype 2009 H1 Not Detected (Not Detect); Influenza B Not Detected (Not Detect); Mycoplasma pneumoniae Not Detected (Not Detect); Parainfluenza Virus 1 Not Detected (Not Detect); Parainfluenza Virus 2 Not Detected (Not Detect); Parainfluenza Virus 3 Not Detected (Not Detect); Parainfluenza Virus 4 Not Detected (Not Detect); Respiratory Syncytial Virus Not Detected (Not Detect); SARS-CoV-2 Not Detected (Not Detect)
[2021-07-02 00:42] LABS: Basophils % 0.7 %; Eosinophils % 0.7 %; Hematocrit 27.5 % (35.3-44.9); Hemoglobin 8.5 g/dL (11.5-15.4); Immature Granulocytes % 0.7 % (0-4); Immature Platelets 3.3 % (1.1-6.1); Lymphocytes # 0.3 K/mcL (0.6-4.6); Lymphocytes % 18.9 %; Mean Corpuscular HGB Conc 30.9 g/dL (31.6-35.5); Mean Corpuscular Hemoglobin 27.6 pg (28.0-33.3); Mean Corpuscular Volume 89.3 fL (83.0-100.0); Mean Platelet Volume 10.7 fL (9.4-12.4); Monocytes # 0.1 K/mcL (0.0-1.3); Monocytes % 6.8 %; Neutrophils # 1.1 K/mcL (1.6-8.9); Red Blood Count 3.08 M/mcL (3.82-4.97); Segmented Neutrophils % 72.2 %; White Blood Count 1.5 K/mcL (4.3-11.1)
[2021-07-02 00:46] LABS: Platelet Count 80 K/mcL (140-400)
[2021-07-02 01:02] LABS: Anisocytosis 1+ (Not Present); Platelet Estimate Slight Decrease (Normal); Reactive Lymphocytes Present (Not Present); Toxic Granulation Present (Not Present)
[2021-07-02] MEDS ORDERED: Melatonin 3 MG TABLET PO PRN (01:12)
[2021-07-02] MEDS ORDERED: Acetaminophen 325 MG TABLET PO PRN (01:12)
[2021-07-02] MEDS ORDERED: *HR* OxyCODONE Immed Rel 5 MG TABLET PO PRN (01:12)
[2021-07-02] MEDS ORDERED: Naloxone 0.4 MG/ML INJ IVP PRN (01:12)
[2021-07-02] MEDS ORDERED: *HR* Promethazine 25 MG/ML VIAL IM PRN (01:12)
[2021-07-02] MEDS ORDERED: Nystatin POWDER 30 GM BOTTLE TP PRN (01:21)
[2021-07-02] MEDS ORDERED: Perflutren Lipid Microsphere 1.3 ML in 0.9 % Sodium Chloride 8.7 ML IVP PRN (01:24)
[2021-07-02] MEDS: 0.9 % Sodium Chloride 2,000 ML IV ONE (01:43)
[2021-07-02] MEDS ORDERED: D5% in Water 1,000 ML IVC PRN (01:47)
[2021-07-02] MEDS ORDERED: *HR* Dextrose 50 % in Water (Syg) 50 ML SYRINGE IVP PRN (01:47)
[2021-07-02] MEDS ORDERED: Dextrose Gel 15 GM/37.5 ML TUBE PO PRN ×2 (01:47)
[2021-07-02] MEDS ORDERED: MethylPREDNISolone 40 MG/ML VIAL IVP ONE (01:56)
[2021-07-02] MEDS ORDERED: Ipratropium/Albuterol Neb 3 ML IH PRN (01:56)
[2021-07-02] MEDS: Ringers Solution, Lactated 1,000 ML IVC SCH ×2 (03:49→10:41)
[2021-07-02 05:04] LABS: Eosinophils % 0.6 %
[2021-07-02 05:07] LABS: Basophils % 0.6 %; Hematocrit 24.9 % (35.3-44.9); Immature Granulocytes % 1.9 % (0-4); Immature Platelets 3.2 % (1.1-6.1); Immature Reticulocyte % 16.7 % (11.0-38.0); Lymphocytes # 0.3 K/mcL (0.6-4.6); Lymphocytes % 20.5 %; Mean Corpuscular HGB Conc 32.1 g/dL (31.6-35.5); Mean Corpuscular Hemoglobin 28.7 pg (28.0-33.3); Mean Corpuscular Volume 89.2 fL (83.0-100.0); Mean Platelet Volume 10.9 fL (9.4-12.4); Monocytes # 0.1 K/mcL (0.0-1.3); Monocytes % 6.4 %; Neutrophils # 1.1 K/mcL (1.6-8.9); Nucleated Red Blood Cells 2.6 /100 WBC (0); Red Blood Count 2.79 M/mcL (3.82-4.97); Retculocyte # 0.03 M/mcL (0.05-0.10); Reticulocyte % 0.9 % (1.6-2.8); White Blood Count 1.6 K/mcL (4.3-11.1)
[2021-07-02 05:08] LABS: Platelet Count 78 K/mcL (140-400)
[2021-07-02] MEDS: *HR* Heparin 5,000 UNIT/ML VIAL SQ SCH ×3 (05:22→20:35)
[2021-07-02 05:24] LABS: Iron 54 mcg/dL (50-170)
[2021-07-02 05:31] LABS: % Iron Saturation 30 % (15-50); Transferrin 127 mg/dL (203-362)
[2021-07-02 05:36] LABS: Anisocytosis 1+ (Not Present); Platelet Estimate Slight Decrease (Normal); Poikilocytosis 1+ (Not Present)
[2021-07-02 05:41] LABS: Albumin 2.5 g/dL (3.5-5.7); Bilirubin,Total 0.4 mg/dL (0.3-1.0); Globulin 2.4 g/dL (2.4-3.5); Magnesium 1.6 mg/dL (1.6-2.6); Potassium 3.3 mEq/L (3.5-5.1); Thyroid Stimulating Hormone 0.62 mcIU/mL (0.340-5.600); Total Protein 4.9 g/dL (6.4-8.9)
[2021-07-02] MEDS: Insulin LISPRO 300 UNITS/3 ML VIAL SUBQ SCH ×4 (05:54→23:34)
[2021-07-02] MEDS ORDERED: *HR* Metoprolol 5 MG/5 ML VIAL IVP ONE (05:54)
[2021-07-02 06:25] LABS: Folate < 1.0 ng/mL (3.0-16.0); Vitamin B12 194 pg/mL (250-1100)
[2021-07-02] MEDS: cefTRIAXone 1,000 MG in Water for inj. (sterile) 10 ML IVP SCH (10:20)
[2021-07-02 10:27] LABS: Adenovirus F 40/41 PCR Not detected (Not detect); Astrovirus PCR Not detected (Not detect); Campylobacter by PCR Not detected (Not detect); Cryptosporidium by PCR Not detected (Not detect); Cyclospora cayetanensis PCR Not detected (Not detect); E. coli O157 by PCR Not detected (Not detect); Entamoeba histolytica PCR Not detected (Not detect); Enteroaggregative E.coli(EAEC) Not detected (Not detect); Enteropathogenic E.coli(EPEC) Not detected (Not detect); Enterotoxigenic E.coli (ETEC) Not detected (Not detect); Giardia lamblia PCR Not detected (Not detect); Norovirus GI/GII PCR DETECTED (Not detect); Plesiomonas shigelloides PCR Not detected (Not detect); Rotavirus A PCR Not detected (Not detect); Salmonella PCR Not detected (Not detect); Sapovirus PCR Not detected (Not detect); Shig/EnteroinvasiveE coli EIEC Not detected (Not detect); Shigalike tox-prod E coli STEC Not detected (Not detect); Vibrio PCR Not detected (Not detect); Vibrio cholerae PCR Not detected (Not detect); Yersinia enterocolitica PCR Not detected (Not detect)
[2021-07-02 10:29] LABS: C.difficile Toxin A/B Gene PCR DETECTED (Not detect)
[2021-07-02] MEDS ORDERED: Ringers Solution, Lactated 1,000 ML IVC SCH (10:52)
[2021-07-02] MEDS: MethylPREDNISolone 40 MG/ML VIAL IVP SCH ×2 (12:24→23:39)
[2021-07-02] MEDS: Nystatin Cream 15 GM TUBE TP SCH (20:43)
[2021-07-02] MEDS: Insulin DETEMIR 100 UNIT/ML X5UNITS SUBQ SCH (21:31)
[2021-07-02] MEDS ORDERED: Azithromycin 500 MG in 0.9 % Sodium Chloride 250 ML IVPB SCH (23:00)
[2021-07-02] MEDS: Ondansetron 4 MG/2 ML VIAL IVP PRN (23:48)
[2021-07-03] MEDS: *HR* Heparin 5,000 UNIT/ML VIAL SQ SCH ×3 (05:11→20:54)
[2021-07-03] MEDS: Insulin LISPRO 300 UNITS/3 ML VIAL SUBQ SCH ×3 (05:25→17:10)
[2021-07-03 07:19] LABS: Red Cell Distribution Width 17.2 % (11.5-14.5)
[2021-07-03 07:21] LABS: Hematocrit 26.1 % (35.3-44.9); Mean Corpuscular HGB Conc 30.7 g/dL (31.6-35.5); Mean Corpuscular Hemoglobin 27.6 pg (28.0-33.3); Mean Platelet Volume 11.1 fL (9.4-12.4); Nucleated Red Blood Cells 2.5 /100 WBC (0); White Blood Count 1.6 K/mcL (4.3-11.1)
[2021-07-03 07:48] LABS: Magnesium 1.6 mg/dL (1.6-2.6); Phosphorous 2.6 mg/dL (2.7-4.5); Potassium 4.4 mEq/L (3.5-5.1)
[2021-07-03 07:58] LABS: Platelet Count 76 K/mcL (140-400)
[2021-07-03 08:32] LABS: Anisocytosis 1+ (Not Present); Lymphocytes # 0.4 K/mcL (0.6-4.6); Neutrophils # 1.2 K/mcL (1.6-8.9)
[2021-07-03 08:33] LABS: Ovalocytes 1+ (Not Present); Platelet Estimate Decreased (Normal)
[2021-07-03] MEDS: Cyanocobalamin (B-12) 1,000 MCG TABLET PO SCH (08:34)
[2021-07-03] MEDS: Folic Acid 1 MG TABLET PO SCH (08:34)
[2021-07-03] MEDS: cefTRIAXone 1,000 MG in Water for inj. (sterile) 10 ML IVP SCH (08:35)
[2021-07-03] MEDS: Nystatin Cream 15 GM TUBE TP SCH ×2 (08:35→20:55)
[2021-07-03] MEDS ORDERED: NON-FORMULARY MEDICATION 1 EACH EACH (Pantoprazole Sodium [Protonix] 40 MG Tablet.Dr) PO SCH (09:00)
[2021-07-03 14:22] LABS: Uric Acid 8.9 mg/dL (2.3-7.6)
[2021-07-03] MEDS: MethylPREDNISolone 40 MG/ML VIAL IVP SCH (15:10)
[2021-07-03] MEDS: Insulin DETEMIR 100 UNIT/ML X5UNITS SUBQ SCH (20:54)
[2021-07-04] MEDS: Insulin LISPRO 300 UNITS/3 ML VIAL SUBQ SCH ×4 (01:01→19:07)
[2021-07-04 02:05] LABS: Hemoglobin 8.4 g/dL (11.5-15.4)
[2021-07-04 02:07] LABS: Basophils % 0.5 %; Eosinophils % 0.5 %; Hematocrit 26.6 % (35.3-44.9); Immature Platelets 2.9 % (1.1-6.1); Lymphocytes # 0.3 K/mcL (0.6-4.6); Lymphocytes % 12.5 %; Mean Corpuscular HGB Conc 31.6 g/dL (31.6-35.5); Mean Corpuscular Volume 88.7 fL (83.0-100.0); Mean Platelet Volume 11.7 fL (9.4-12.4); Monocytes # 0.1 K/mcL (0.0-1.3); Neutrophils # 1.5 K/mcL (1.6-8.9); Segmented Neutrophils % 74.5 %
[2021-07-04 02:08] LABS: Platelet Count 79 K/mcL (140-400)
[2021-07-04 02:24] LABS: Anisocytosis 1+ (Not Present); Platelet Estimate Decreased (Normal)
[2021-07-04 05:42] LABS: Magnesium 1.7 mg/dL (1.6-2.6); Phosphorous 2.4 mg/dL (2.7-4.5); Potassium 4.5 mEq/L (3.5-5.1)
[2021-07-04] MEDS: *HR* Heparin 5,000 UNIT/ML VIAL SQ SCH ×3 (05:55→20:36)
[2021-07-04] MEDS: predniSONE 20 MG TABLET PO SCH (10:00)
[2021-07-04] MEDS: Folic Acid 1 MG TABLET PO SCH (10:05)
[2021-07-04] MEDS: Cyanocobalamin (B-12) 1,000 MCG TABLET PO SCH (10:06)
[2021-07-04] MEDS: levoFLOXacin 750 MG TABLET PO SCH (10:07)
[2021-07-04] MEDS: Nystatin Cream 15 GM TUBE TP SCH ×3 (13:04→21:30)
[2021-07-04] MEDS: *HR* HYDROcodone/Acet 5/325 mg TABLET PO PRN (20:35)
[2021-07-04] MEDS: Insulin DETEMIR 100 UNIT/ML X5UNITS SUBQ SCH (20:36)
[2021-07-05] MEDS: Insulin LISPRO 300 UNITS/3 ML VIAL SUBQ SCH ×5 (01:06→23:53)
[2021-07-05] MEDS: Ondansetron 4 MG/2 ML VIAL IVP PRN ×2 (05:29→12:37)
[2021-07-05] MEDS: *HR* Heparin 5,000 UNIT/ML VIAL SQ SCH ×3 (05:30→19:51)
[2021-07-05] MEDS: *HR* HYDROcodone/Acet 5/325 mg TABLET PO PRN ×2 (06:18→19:51)
[2021-07-05] MEDS: Folic Acid 1 MG TABLET PO SCH (08:13)
[2021-07-05] MEDS: predniSONE 20 MG TABLET PO SCH (08:13)
[2021-07-05] MEDS: Cyanocobalamin (B-12) 1,000 MCG TABLET PO SCH (08:13)
[2021-07-05] MEDS: levoFLOXacin 750 MG TABLET PO SCH (08:14)
[2021-07-05] MEDS: Nystatin Cream 15 GM TUBE TP SCH ×2 (08:26→19:54)
[2021-07-05] MEDS: Insulin DETEMIR 100 UNIT/ML X5UNITS SUBQ SCH (19:51)
[2021-07-06 00:40] LABS: Basophils % 0.7 %; Mean Corpuscular Volume 89.6 fL (83.0-100.0)
[2021-07-06 00:42] LABS: Hematocrit 26.6 % (35.3-44.9); Hemoglobin 8.2 g/dL (11.5-15.4); Immature Granulocytes % 11.1 % (0-4); Immature Platelets 2.3 % (1.1-6.1); Lymphocytes # 0.3 K/mcL (0.6-4.6); Lymphocytes % 18.3 %; Mean Corpuscular HGB Conc 30.8 g/dL (31.6-35.5); Mean Corpuscular Hemoglobin 27.6 pg (28.0-33.3); Mean Platelet Volume 10.1 fL (9.4-12.4); Monocytes # 0.1 K/mcL (0.0-1.3); Monocytes % 5.2 %; Red Blood Count 2.97 M/mcL (3.82-4.97); Red Cell Distribution Width 16.8 % (11.5-14.5); Segmented Neutrophils % 64.7 %; White Blood Count 1.5 K/mcL (4.3-11.1)
[2021-07-06 00:43] LABS: Platelet Count 50 K/mcL (140-400)
[2021-07-06 01:01] LABS: Calcium 7.9 mg/dL (8.6-10.3); Magnesium 1.6 mg/dL (1.6-2.6); Phosphorous 1.7 mg/dL (2.7-4.5); Potassium 4.8 mEq/L (3.5-5.1)
[2021-07-06 01:11] LABS: Anisocytosis 1+ (Not Present); Hypochromasia Present (Not Present); Platelet Estimate Decreased (Normal)
[2021-07-06] MEDS: *HR* HYDROcodone/Acet 5/325 mg TABLET PO PRN ×2 (04:24→23:04)
[2021-07-06] MEDS: *HR* Heparin 5,000 UNIT/ML VIAL SQ SCH (06:35)
[2021-07-06] MEDS: Insulin LISPRO 300 UNITS/3 ML VIAL SUBQ SCH ×4 (06:36→23:39)
[2021-07-06] MEDS: predniSONE 20 MG TABLET PO SCH (09:06)
[2021-07-06] MEDS: Folic Acid 1 MG TABLET PO SCH (09:06)
[2021-07-06] MEDS: Cyanocobalamin (B-12) 1,000 MCG TABLET PO SCH (09:06)
[2021-07-06] MEDS: levoFLOXacin 750 MG TABLET PO SCH (09:06)
[2021-07-06] MEDS: Nystatin Cream 15 GM TUBE TP SCH ×2 (09:06→21:16)
[2021-07-06] MEDS: Cyanocobalamin (B-12) 1,000 MCG/ML VIAL IM SCH (12:13)
[2021-07-06] MEDS: Ondansetron 4 MG/2 ML VIAL IVP PRN (14:21)
[2021-07-06] MEDS: Insulin DETEMIR 100 UNIT/ML X5UNITS SUBQ SCH (21:16)
[2021-07-07] MEDS: Insulin LISPRO 300 UNITS/3 ML VIAL SUBQ SCH ×3 (06:12→18:23)
[2021-07-07] MEDS: Ondansetron 4 MG/2 ML VIAL IVP PRN (09:13)
[2021-07-07] MEDS: Nystatin Cream 15 GM TUBE TP SCH (09:15)
[2021-07-07] MEDS: Cyanocobalamin (B-12) 1,000 MCG/ML VIAL IM SCH (10:11)
[2021-07-07] MEDS: Folic Acid 1 MG TABLET PO SCH (10:11)
[2021-07-07] MEDS: levoFLOXacin 750 MG TABLET PO SCH (10:11)
[2021-07-07 10:30] VITALS: O2SAT 100
[2021-07-07 15:42] VITALS: BP 107/74; PULSE 75; TEMP 97.8
[2021-07-07] MEDS ORDERED: Ondansetron ODT 4 MG TAB.RAPDIS SL SCH (16:00)
[2021-07-07 16:28] LABS: Adenovirus Not Detected (Not Detect); Bordetella Pertussis Not Detected (Not Detect); Chlamydophila pneumoniae Not Detected (Not Detect); Coronavirus 229E Not Detected (Not Detect); Coronavirus HKU1 Not Detected (Not Detect); Coronavirus NL63 Not Detected (Not Detect); Coronavirus OC43 Not Detected (Not Detect); Human Metapneumovirus Not Detected (Not Detect); Human Rhinovirus/Enterovirus Not Detected (Not Detect); Influenza A Subtype 2009 H1 Not Detected (Not Detect); Influenza B Not Detected (Not Detect); Mycoplasma pneumoniae Not Detected (Not Detect); Parainfluenza Virus 1 Not Detected (Not Detect); Parainfluenza Virus 2 Not Detected (Not Detect); Parainfluenza Virus 3 Not Detected (Not Detect); Parainfluenza Virus 4 Not Detected (Not Detect); Respiratory Syncytial Virus Not Detected (Not Detect); SARS-CoV-2 Not Detected (Not Detect)
[2021-07-07] MEDS ORDERED: FLU Vac QV 21-22 (6Month+)/PF 0.5 ML SYRINGE IM ONE (16:59)
[2021-07-07] MEDS: *HR* HYDROcodone/Acet 5/325 mg TABLET PO PRN (17:19)
[2021-07-07 18:07] LABS: Lambda Qnt Free Light Chains 38.03 mg/L (5.71-26.30)
[2021-07-08 10:43] LABS: Kappa Qnt Free Light Chains 43.1 mg/L (3.30-19.40)
[2021-07-11 03:41] LABS: Alpha 2 Globulin (PEP) 0.98 g/dL (0.48-1.05); Beta Globulin (PEP) 0.71 g/dL (0.48-1.10)
[2021-07-11 10:05] LABS: IFE Reflexed NOT DONE
== END 2021-07-07 18:44 | disposition home or self-care (01) | DRG 871 ==
LOC: 2ANU 19:14 → EMEROOARM 19:14 → SUATTDRO 07-02 01:38 → 2ANU 07-02 02:45
PROVIDERS: ADMIT Internal Medicine; ATTEND Internal Medicine

== ENCOUNTER 2021-07-10 16:18 | Inpatient (IN) ==
[2021-07-10] MEDS ORDERED: 0.9 % Sodium Chloride 500 ML IVC ONE (17:26)
[2021-07-10 18:31] LABS: Basophils % 0.2 %; Eosinophils % 0.4 %; Hemoglobin 7.5 g/dL (11.5-15.4)
[2021-07-10 18:33] LABS: Hematocrit 23.2 % (35.3-44.9); Immature Granulocytes % 3.8 % (0-4); Lymphocytes # 0.4 K/mcL (0.6-4.6); Lymphocytes % 8.7 %; Mean Corpuscular HGB Conc 32.3 g/dL (31.6-35.5); Mean Corpuscular Hemoglobin 28.2 pg (28.0-33.3); Mean Corpuscular Volume 87.2 fL (83.0-100.0); Monocytes # 0.1 K/mcL (0.0-1.3); Monocytes % 2.5 %; Neutrophils # 3.8 K/mcL (1.6-8.9); Red Blood Count 2.66 M/mcL (3.82-4.97); Red Cell Distribution Width 17.1 % (11.5-14.5); Segmented Neutrophils % 84.4 %; White Blood Count 4.5 K/mcL (4.3-11.1)
[2021-07-10 18:38] LABS: INR 1.3; Prothrombin Time 14.6 Seconds (9.4-12.1)
[2021-07-10 18:40] LABS: Activated Partial Thrombo Time 22.7 Seconds (26.0-36.0)
[2021-07-10 18:50] LABS: Platelet Count 20 K/mcL (140-400)
[2021-07-10 18:52] LABS: Calcium 7.3 mg/dL (8.6-10.3); Potassium 4.7 mEq/L (3.5-5.1)
[2021-07-10 19:02] LABS: Troponin I 0.04 ng/mL (< 0.04)
[2021-07-10 21:42] LABS: Bilirubin,Urine Negative (Negative); Blood,Urine Moderate (Negative); Clarity,Urine Turbid (Clear); Color,Urine Light-Yellow (Yellow); Glucose,Urine (UA) Normal (Normal); Ketones,Urine 10 mg/dL (Negative); Leukocyte Esterase,Urine Large (Negative); Nitrite,Urine Negative (Negative); PH,Urine 6.5 pH Units (5.0-8.0); Protein,Urine 50 mg/dL (Neg-Trace); Specific Gravity,Urine 1.018 (1.010-1.025); Squamous Epithelial Cell,Urine Few per hpf (None-Few); Urobilinogen,Urine Normal (Normal); WBC,Urine 50-100 per hpf (0-3)
[2021-07-10] MEDS ORDERED: Acetaminophen 325 MG TABLET PO ONE (21:58)
[2021-07-10] MEDS ORDERED: Melatonin 3 MG TABLET PO PRN (23:34)
[2021-07-10] MEDS ORDERED: Naloxone 0.4 MG/ML INJ IVP PRN (23:34)
[2021-07-10] MEDS ORDERED: Ondansetron 4 MG/2 ML VIAL IVP PRN (23:34)
[2021-07-10] MEDS ORDERED: Dextrose Gel 15 GM/37.5 ML TUBE PO PRN ×2 (23:37)
[2021-07-10] MEDS ORDERED: *HR* Dextrose 50 % in Water (Syg) 50 ML SYRINGE IVP PRN (23:37)
[2021-07-10] MEDS ORDERED: D5% in Water 1,000 ML IVC PRN (23:37)
[2021-07-11] MEDS ORDERED: Nystatin POWDER 30 GM BOTTLE TP PRN (00:24)
[2021-07-11] MEDS ORDERED: Ondansetron ODT 4 MG TAB.RAPDIS SL PRN (00:24)
[2021-07-11] MEDS: Budesonide/Formoterol 80/4.5 1 PUFF INH IH SCH ×3 (03:25→19:27)
[2021-07-11] MEDS ORDERED: 0.9 % Sodium Chloride 500 ML IVC ONE (04:20)
[2021-07-11 07:02] LABS: Basophils % 0.2 %; Hemoglobin 7.7 g/dL (11.5-15.4); Monocytes % 2.8 %; Red Cell Distribution Width 17.2 % (11.5-14.5)
[2021-07-11 07:04] LABS: Hematocrit 24.9 % (35.3-44.9); Immature Granulocytes % 3.3 % (0-4); Lymphocytes # 0.3 K/mcL (0.6-4.6); Lymphocytes % 7.8 %; Mean Corpuscular HGB Conc 30.9 g/dL (31.6-35.5); Mean Corpuscular Hemoglobin 27.5 pg (28.0-33.3); Mean Corpuscular Volume 88.9 fL (83.0-100.0); Monocytes # 0.1 K/mcL (0.0-1.3); Neutrophils # 3.6 K/mcL (1.6-8.9); Segmented Neutrophils % 85.9 %; White Blood Count 4.2 K/mcL (4.3-11.1)
[2021-07-11] MEDS: Tiotropium 10 INH DOSE IH SCH (07:33)
[2021-07-11 07:58] LABS: Platelet Count 20 K/mcL (140-400)
[2021-07-11 08:04] LABS: Albumin 3.1 g/dL (3.5-5.7); Albumin/Globulin Ratio 1.3 (1.1-2.2); Bilirubin,Direct 0.1 mg/dL (0.0-0.2); Bilirubin,Indirect 0.4 mg/dL (0.0-1.0); Bilirubin,Total 0.5 mg/dL (0.3-1.0); Calcium 7.6 mg/dL (8.6-10.3); Globulin 2.4 g/dL (2.4-3.5); Magnesium 1.7 mg/dL (1.6-2.6); Potassium 4.8 mEq/L (3.5-5.1); Thyroid Stimulating Hormone 1.975 mcIU/mL (0.340-5.600); Total Protein 5.5 g/dL (6.4-8.9); Troponin I 0.04 ng/mL (< 0.04)
[2021-07-11] MEDS ORDERED: levoFLOXacin 750 MG TABLET PO SCH (09:00)
[2021-07-11] MEDS: 0.9 % Sodium Chloride 1,000 ML IVC SCH ×2 (10:14→19:15)
[2021-07-11] MEDS: Folic Acid 1 MG TABLET PO SCH ×2 (10:15→12:17)
[2021-07-11] MEDS: [UNRECOGNIZED DRUG - REMARK] PO SCH (10:16)
[2021-07-11] MEDS: Cyanocobalamin (B-12) 1,000 MCG TABLET PO SCH ×2 (10:16→12:17)
[2021-07-11] MEDS: Nystatin Cream 15 GM TUBE TP SCH ×2 (10:17→20:19)
[2021-07-11] MEDS ORDERED: Isovue-370 500 ML BOTTLE IVP ONE ×2 (10:53)
[2021-07-11] MEDS ORDERED: 0.9 % Sodium Chloride 1,000 ML IVC ONE (10:55)
[2021-07-11 11:47] LABS: Hematocrit 24.7 % (35.3-44.9); Hemoglobin 7.9 g/dL (11.5-15.4); Immature Platelets 9.3 % (1.1-6.1); Mean Corpuscular Hemoglobin 28.4 pg (28.0-33.3); Mean Corpuscular Volume 88.8 fL (83.0-100.0); Monocytes # 0.1 K/mcL (0.0-1.3); Neutrophils # 4.9 K/mcL (1.6-8.9); Red Blood Count 2.78 M/mcL (3.82-4.97); Red Cell Distribution Width 17.2 % (11.5-14.5); White Blood Count 5.7 K/mcL (4.3-11.1)
[2021-07-11 11:58] LABS: Platelet Count 20 K/mcL (140-400)
[2021-07-11] MEDS: Albumin Human 5% 12.5 GM/250 ML IV.SOLN IVC SCH ×2 (12:13→18:18)
[2021-07-11] MEDS: Cholecalciferol (D-3) 1,000 UNIT (25MCG) TABLET PO SCH (12:14)
[2021-07-11] MEDS ORDERED: Ringers Solution, Lactated 1,000 ML IVC ONE ×3 (12:38→19:56)
[2021-07-11 12:39] LABS: Lymphocytes # 0.7 K/mcL (0.6-4.6); Platelet Estimate Marked Decrease (Normal)
[2021-07-11] MEDS: Ringers Solution, Lactated 1,000 ML IVC SCH ×2 (16:13→20:18)
[2021-07-11] MEDS ORDERED: 0.9 % Sodium Chloride 250 ML ONE (18:02)
[2021-07-11] MEDS: *HR* Heparin 5,000 UNIT/ML VIAL SQ SCH ×2 (19:13→20:04)
[2021-07-11] MEDS: Doxycycline 100 MG in 0.9 % Sodium Chloride Mini Bag 100 ML IVPB SCH (19:14)
[2021-07-12] MEDS: Levalbuterol Neb 1.25 MG/3 ML IH SCH ×5 (00:13→20:54)
[2021-07-12 01:08] LABS: Basophils % 0.4 %; Eosinophils % 0.4 %; Hematocrit 18.6 % (35.3-44.9); Immature Granulocytes % 4.7 % (0-4); Lymphocytes # 0.4 K/mcL (0.6-4.6); Lymphocytes % 15.6 %; Mean Corpuscular HGB Conc 32.8 g/dL (31.6-35.5); Mean Corpuscular Volume 85.3 fL (83.0-100.0); Mean Platelet Volume 10.6 fL (9.4-12.4); Monocytes # 0.1 K/mcL (0.0-1.3); Monocytes % 3.3 %; Neutrophils # 2.1 K/mcL (1.6-8.9); Red Blood Count 2.18 M/mcL (3.82-4.97); Segmented Neutrophils % 75.6 %
[2021-07-12 01:30] LABS: BUN/Creatinine Ratio 25 (6-26); Blood Urea Nitrogen 26 mg/dL (6-20); Calcium 6.6 mg/dL (8.6-10.3); Carbon Dioxide 20 mEq/L (23-29); Chloride 105 mEq/L (98-107); Glucose 91 mg/dL (70-105); Magnesium 1.5 mg/dL (1.6-2.6); Osmolality,Calculated 286 (280-300); Phosphorous 2.8 mg/dL (2.7-4.5); Sodium 136 mEq/L (136-145); eGFR For African Americans > 60 (> 60); eGFR For Non-African Americans 55 (> 60)
[2021-07-12 01:31] LABS: Hemoglobin 6.1 g/dL (11.5-15.4); White Blood Count 2.8 K/mcL (4.3-11.1)
[2021-07-12 01:33] LABS: Platelet Count 23 K/mcL (140-400)
[2021-07-12 01:35] LABS: Platelet Estimate Marked Decrease (Normal)
[2021-07-12 01:57] LABS: Lactate Dehydrogenase < 25 Units/L (140-271)
[2021-07-12 02:41] LABS: Albumin 2.8 g/dL (3.5-5.7)
[2021-07-12] MEDS: Calcium Gluconate 1gm/50mL 1 GM/50 ML BAG IVPB SCH ×2 (02:53→03:23)
[2021-07-12] MEDS ORDERED: 0.9 % Sodium Chloride 250 ML ONE (03:04)
[2021-07-12] MEDS: Magnesium Oxide 400 MG TABLET PO SCH ×2 (03:24→05:47)
[2021-07-12] MEDS: Ringers Solution, Lactated 1,000 ML IVC SCH (03:58)
[2021-07-12] MEDS: Acetaminophen 325 MG TABLET PO PRN (05:47)
[2021-07-12] MEDS: Doxycycline 100 MG in 0.9 % Sodium Chloride Mini Bag 100 ML IVPB SCH ×2 (05:50→16:41)
[2021-07-12 07:27] LABS: Hematocrit 23.5 % (35.3-44.9)
[2021-07-12 07:52] LABS: Hemoglobin 7.8 g/dL (11.5-15.4)
[2021-07-12] MEDS: Cholecalciferol (D-3) 1,000 UNIT (25MCG) TABLET PO SCH (08:42)
[2021-07-12] MEDS: Folic Acid 1 MG TABLET PO SCH (10:16)
[2021-07-12] MEDS: Cyanocobalamin (B-12) 1,000 MCG TABLET PO SCH (10:16)
[2021-07-12] MEDS: Pantoprazole 40 MG VIAL IVP SCH ×2 (10:22→16:42)
[2021-07-12] MEDS: Budesonide/Formoterol 80/4.5 1 PUFF INH IH SCH ×2 (10:25→20:55)
[2021-07-12] MEDS: Tiotropium 10 INH DOSE IH SCH (10:26)
[2021-07-12] MEDS: [UNRECOGNIZED DRUG - REMARK] PO SCH (10:28)
[2021-07-12] MEDS: Nystatin Cream 15 GM TUBE TP SCH ×2 (10:28→19:51)
[2021-07-12] MEDS ORDERED: Cyanocobalamin (B-12) 1,000 MCG/ML VIAL IM ONE (15:07)
[2021-07-12] MEDS: Piperacillin/Tazobactam 3.375 GM in 0.9 % Sodium Chloride Mini Bag 100 ML IVPB SCH (16:43)
[2021-07-12 18:09] LABS: Immature Reticulocyte % 7.8 % (11.0-38.0); Retculocyte # 0.01 M/mcL (0.05-0.10); Reticulocyte % 0.3 % (1.6-2.8)
[2021-07-12 18:23] LABS: INR 1.3; Prothrombin Time 14.3 Seconds (9.4-12.1)
[2021-07-12] MEDS: Vancomycin 1,250 MG/262.5 ML IV.SOLN IVPB SCH (18:47)
[2021-07-13] MEDS ORDERED: *HR* Metoprolol 5 MG/5 ML VIAL IVP ONE (00:20)
[2021-07-13] MEDS ORDERED: *HR* Metoprolol 5 MG/5 ML VIAL IVP PRN (00:28)
[2021-07-13] MEDS: Piperacillin/Tazobactam 3.375 GM in 0.9 % Sodium Chloride Mini Bag 100 ML IVPB SCH ×3 (01:27→18:51)
[2021-07-13] MEDS: Levalbuterol Neb 1.25 MG/3 ML IH SCH ×4 (04:08→22:32)
[2021-07-13] MEDS: Pantoprazole 40 MG VIAL IVP SCH ×2 (05:11→18:52)
[2021-07-13] MEDS: Vancomycin 1,250 MG/262.5 ML IV.SOLN IVPB SCH ×2 (05:13→18:56)
[2021-07-13] MEDS: Doxycycline 100 MG in 0.9 % Sodium Chloride Mini Bag 100 ML IVPB SCH ×2 (05:16→18:52)
[2021-07-13 05:54] LABS: Eosinophils % 0.9 %; Hematocrit 22.8 % (35.3-44.9); Hemoglobin 7.6 g/dL (11.5-15.4); Immature Granulocytes % 2.9 % (0-4); Immature Platelets 5.5 % (1.1-6.1); Lymphocytes # 0.4 K/mcL (0.6-4.6); Lymphocytes % 8.8 %; Mean Corpuscular HGB Conc 33.3 g/dL (31.6-35.5); Mean Corpuscular Hemoglobin 29.8 pg (28.0-33.3); Mean Corpuscular Volume 89.4 fL (83.0-100.0); Monocytes # 0.2 K/mcL (0.0-1.3); Monocytes % 3.5 %; Nucleated Red Blood Cells 0.7 /100 WBC (0); Red Blood Count 2.55 M/mcL (3.82-4.97); Red Cell Distribution Width 16.9 % (11.5-14.5); Segmented Neutrophils % 83.9 %; White Blood Count 4.6 K/mcL (4.3-11.1)
[2021-07-13 05:56] LABS: Neutrophils # 3.9 K/mcL (1.6-8.9); Platelet Count 29 K/mcL (140-400)
[2021-07-13 06:12] LABS: BUN/Creatinine Ratio 21 (6-26); Blood Urea Nitrogen 23 mg/dL (6-20); Calcium 7.3 mg/dL (8.6-10.3); Carbon Dioxide 24 mEq/L (23-29); Chloride 106 mEq/L (98-107); Glucose 100 mg/dL (70-105); Osmolality,Calculated 290 (280-300); Phosphorous 2.4 mg/dL (2.7-4.5); Potassium 3.8 mEq/L (3.5-5.1); Sodium 138 mEq/L (136-145); eGFR For African Americans > 60 (> 60); eGFR For Non-African Americans 51 (> 60)
[2021-07-13] MEDS ORDERED: *HR* LORazepam 2 MG/ML VIAL IVP ONE ×2 (09:36→13:06)
[2021-07-13] MEDS: Folic Acid 1 MG TABLET PO SCH (09:46)
[2021-07-13] MEDS: Cyanocobalamin (B-12) 1,000 MCG TABLET PO SCH (09:46)
[2021-07-13] MEDS: [UNRECOGNIZED DRUG - REMARK] PO SCH (09:48)
[2021-07-13] MEDS: Nystatin Cream 15 GM TUBE TP SCH ×2 (09:48→19:01)
[2021-07-13] MEDS ORDERED: Furosemide 20 MG/2 ML VIAL IVP ONE (09:54)
[2021-07-13] MEDS: Budesonide/Formoterol 80/4.5 1 PUFF INH IH SCH ×2 (10:43→22:33)
[2021-07-13] MEDS: Tiotropium 10 INH DOSE IH SCH (10:43)
[2021-07-13] MEDS: Cholecalciferol (D-3) 1,000 UNIT (25MCG) TABLET PO SCH (11:42)
[2021-07-13] MEDS ORDERED: Amiodarone Premix 360 MG/200 ML BAG IVC ONE (13:04)
[2021-07-13] MEDS ORDERED: Amiodarone Premix 150 MG/100 ML BAG IVPB ONE (13:04)
[2021-07-13] MEDS ORDERED: *HR* LORazepam 2 MG/ML VIAL IVP STA (13:06)
[2021-07-13] MEDS ORDERED: 0.9 % Sodium Chloride 1,000 ML IVC ONE (13:06)
[2021-07-13] MEDS ORDERED: Norepinephrine 4 MG/254 ML IV.SOLN IVC SCH (13:30)
[2021-07-13 17:58] LABS: Basophils % 0.2 %; Hemoglobin 7.3 g/dL (11.5-15.4); Nucleated Red Blood Cells 0.5 /100 WBC (0); Red Cell Distribution Width 17.2 % (11.5-14.5)
[2021-07-13 18:00] LABS: Eosinophils % 0.7 %; Hematocrit 23.2 % (35.3-44.9); Immature Granulocytes % 2.1 % (0-4); Immature Platelets 6.8 % (1.1-6.1); Lymphocytes # 0.4 K/mcL (0.6-4.6); Lymphocytes % 6.1 %; Mean Corpuscular HGB Conc 31.5 g/dL (31.6-35.5); Mean Corpuscular Hemoglobin 28.5 pg (28.0-33.3); Mean Corpuscular Volume 90.6 fL (83.0-100.0); Mean Platelet Volume 11.1 fL (9.4-12.4); Monocytes # 0.2 K/mcL (0.0-1.3); Neutrophils # 5.1 K/mcL (1.6-8.9); Red Blood Count 2.56 M/mcL (3.82-4.97); Segmented Neutrophils % 87.9 %; White Blood Count 5.8 K/mcL (4.3-11.1)
[2021-07-13 18:04] LABS: Platelet Count 29 K/mcL (140-400)
[2021-07-13 18:06] LABS: INR 1.4; Prothrombin Time 16.1 Seconds (9.4-12.1)
[2021-07-13] MEDS: 0.9 % Sodium Chloride 1,000 ML IVC SCH (18:48)
[2021-07-13] MEDS: Calcium Gluconate 1gm/50mL 1 GM/50 ML BAG IVPB SCH (18:49)
[2021-07-13] MEDS: Amiodarone Premix 360 MG/200 ML BAG IVC SCH (20:02)
[2021-07-13] MEDS: Acetaminophen 325 MG TABLET PO PRN (20:29)
[2021-07-14] MEDS: 0.9 % Sodium Chloride 1,000 ML IVC SCH ×3 (01:52→10:53)
[2021-07-14] MEDS: Piperacillin/Tazobactam 3.375 GM in 0.9 % Sodium Chloride Mini Bag 100 ML IVPB SCH ×3 (01:53→18:02)
[2021-07-14] MEDS: Levalbuterol Neb 1.25 MG/3 ML IH SCH ×4 (04:28→19:49)
[2021-07-14] MEDS: Vancomycin 1,250 MG/262.5 ML IV.SOLN IVPB SCH (06:09)
[2021-07-14] MEDS: Doxycycline 100 MG in 0.9 % Sodium Chloride Mini Bag 100 ML IVPB SCH ×2 (06:10→18:10)
[2021-07-14] MEDS: Pantoprazole 40 MG VIAL IVP SCH ×2 (06:10→18:03)
[2021-07-14 06:24] LABS: Basophils % 0.2 %; Lymphocytes % 7.3 %; Monocytes % 3.7 %
[2021-07-14 06:26] LABS: Eosinophils % 0.5 %; Hematocrit 21.5 % (35.3-44.9); Hemoglobin 6.9 g/dL (11.5-15.4); Immature Granulocytes % 2.8 % (0-4); Immature Platelets 7.1 % (1.1-6.1); Lymphocytes # 0.4 K/mcL (0.6-4.6); Mean Corpuscular HGB Conc 32.1 g/dL (31.6-35.5); Mean Corpuscular Hemoglobin 28.9 pg (28.0-33.3); Monocytes # 0.2 K/mcL (0.0-1.3); Neutrophils # 4.8 K/mcL (1.6-8.9); Nucleated Red Blood Cells 0.7 /100 WBC (0); Red Blood Count 2.39 M/mcL (3.82-4.97); Red Cell Distribution Width 17.5 % (11.5-14.5); Segmented Neutrophils % 85.5 %; White Blood Count 5.6 K/mcL (4.3-11.1)
[2021-07-14 06:45] LABS: Platelet Count 27 K/mcL (140-400)
[2021-07-14 07:00] LABS: Magnesium 1.9 mg/dL (1.6-2.6); Phosphorous 1.8 mg/dL (2.7-4.5); Potassium 3.3 mEq/L (3.5-5.1)
[2021-07-14] MEDS: Amiodarone Premix 360 MG/200 ML BAG IVC SCH ×2 (08:22→21:05)
[2021-07-14] MEDS: Folic Acid 1 MG TABLET PO SCH (09:04)
[2021-07-14] MEDS: Nystatin Cream 15 GM TUBE TP SCH ×2 (09:04→21:45)
[2021-07-14] MEDS: Cyanocobalamin (B-12) 1,000 MCG TABLET PO SCH (09:04)
[2021-07-14] MEDS: Cholecalciferol (D-3) 1,000 UNIT (25MCG) TABLET PO SCH ×2 (09:04→09:27)
[2021-07-14] MEDS: Calcium Gluconate 1gm/50mL 1 GM/50 ML BAG IVPB SCH (09:28)
[2021-07-14] MEDS: Magnesium Oxide 400 MG TABLET PO SCH (09:34)
[2021-07-14] MEDS: Ringers Solution, Lactated 1,000 ML IVC SCH (09:35)
[2021-07-14] MEDS ORDERED: Furosemide 20 MG/2 ML VIAL IVP ONE (10:32)
[2021-07-14] MEDS: Budesonide/Formoterol 80/4.5 1 PUFF INH IH SCH ×2 (12:03→19:49)
[2021-07-14] MEDS: Tiotropium 10 INH DOSE IH SCH (12:03)
[2021-07-14] MEDS ORDERED: 0.9 % Sodium Chloride 250 ML ONE (13:22)
[2021-07-14 13:51] LABS: INR 1.5; Prothrombin Time 16.9 Seconds (9.4-12.1)
[2021-07-14] MEDS ORDERED: Potassium Phosphate 44 MEQ in 0.9 % Sodium Chloride 250 ML IVPB ONE (14:15)
[2021-07-14] MEDS ORDERED: Vancomycin 1,500 MG/265 ML IV.SOLN IVPB SCH (18:00)
[2021-07-14] MEDS: Norepinephrine 4 MG/254 ML IV.SOLN IVC SCH (21:32)
[2021-07-14 22:05] LABS: Calcium 6.6 mg/dL (8.6-10.3); Potassium 3.5 mEq/L (3.5-5.1)
[2021-07-15] MEDS: Piperacillin/Tazobactam 3.375 GM in 0.9 % Sodium Chloride Mini Bag 100 ML IVPB SCH ×2 (01:09→08:38)
[2021-07-15] MEDS: Levalbuterol Neb 1.25 MG/3 ML IH SCH ×4 (04:01→20:24)
[2021-07-15] MEDS: Doxycycline 100 MG in 0.9 % Sodium Chloride Mini Bag 100 ML IVPB SCH (05:14)
[2021-07-15] MEDS: Pantoprazole 40 MG VIAL IVP SCH ×2 (05:17→17:23)
[2021-07-15 05:39] LABS: VBG Ionized Calcium 0.93 mmol/L (1.15-1.35)
[2021-07-15 05:39] LABS: Nucleated Red Blood Cells 0.5 /100 WBC (0); Red Cell Distribution Width 17.2 % (11.5-14.5)
[2021-07-15 05:41] LABS: Basophils % 0.2 %; Eosinophils # 0.1 K/mcL (0.0-0.6); Eosinophils % 1.2 %; Hematocrit 25.7 % (35.3-44.9); Hemoglobin 8.5 g/dL (11.5-15.4); Immature Granulocytes % 2.5 % (0-4); Immature Platelets 6.2 % (1.1-6.1); Lymphocytes # 0.4 K/mcL (0.6-4.6); Lymphocytes % 6.8 %; Mean Corpuscular HGB Conc 33.1 g/dL (31.6-35.5); Mean Corpuscular Hemoglobin 28.8 pg (28.0-33.3); Mean Corpuscular Volume 87.1 fL (83.0-100.0); Monocytes # 0.2 K/mcL (0.0-1.3); Monocytes % 3.2 %; Neutrophils # 5.2 K/mcL (1.6-8.9); Red Blood Count 2.95 M/mcL (3.82-4.97); Segmented Neutrophils % 86.1 %
[2021-07-15 05:44] LABS: Platelet Count 24 K/mcL (140-400)
[2021-07-15 05:59] LABS: Calcium 6.5 mg/dL (8.6-10.3); Magnesium 1.6 mg/dL (1.6-2.6); Phosphorous 5.8 mg/dL (2.7-4.5); Potassium 3.5 mEq/L (3.5-5.1)
[2021-07-15] MEDS: Budesonide/Formoterol 80/4.5 1 PUFF INH IH SCH ×2 (08:10→20:24)
[2021-07-15] MEDS: Tiotropium 10 INH DOSE IH SCH (08:10)
[2021-07-15] MEDS: Acetaminophen 325 MG TABLET PO PRN (08:37)
[2021-07-15] MEDS: Folic Acid 1 MG TABLET PO SCH (08:37)
[2021-07-15] MEDS: Cyanocobalamin (B-12) 1,000 MCG TABLET PO SCH (08:37)
[2021-07-15] MEDS: Nystatin Cream 15 GM TUBE TP SCH ×2 (08:37→21:17)
[2021-07-15] MEDS: Cholecalciferol (D-3) 1,000 UNIT (25MCG) TABLET PO SCH (08:39)
[2021-07-15] MEDS: Amiodarone Premix 360 MG/200 ML BAG IVC SCH ×2 (11:47→21:43)
[2021-07-15] MEDS: *HR* Amiodarone 200 MG TABLET PO SCH ×2 (15:34→21:08)
[2021-07-16] MEDS: Levalbuterol Neb 1.25 MG/3 ML IH SCH ×4 (03:59→21:01)
[2021-07-16 04:06] LABS: Lymphocytes % 7.7 %
[2021-07-16 04:07] LABS: Basophils % 0.2 %; Eosinophils % 0.3 %; Hematocrit 24.8 % (35.3-44.9); Hemoglobin 8.4 g/dL (11.5-15.4); Immature Granulocytes % 1.7 % (0-4); Immature Platelets 6.8 % (1.1-6.1); Lymphocytes # 0.5 K/mcL (0.6-4.6); Mean Corpuscular HGB Conc 33.9 g/dL (31.6-35.5); Mean Corpuscular Hemoglobin 29.4 pg (28.0-33.3); Mean Corpuscular Volume 86.7 fL (83.0-100.0); Monocytes # 0.2 K/mcL (0.0-1.3); Monocytes % 3.6 %; Neutrophils # 5.7 K/mcL (1.6-8.9); Nucleated Red Blood Cells 0.5 /100 WBC (0); Red Blood Count 2.86 M/mcL (3.82-4.97); Red Cell Distribution Width 17.3 % (11.5-14.5); Segmented Neutrophils % 86.5 %; White Blood Count 6.6 K/mcL (4.3-11.1)
[2021-07-16] MEDS: *HR* LORazepam 1 MG TABLET PO PRN ×2 (04:15→23:11)
[2021-07-16 04:23] LABS: Platelet Count 24 K/mcL (140-400)
[2021-07-16] MEDS: Norepinephrine 4 MG/254 ML IV.SOLN IVC SCH (04:52)
[2021-07-16 05:09] LABS: Calcium 6.6 mg/dL (8.6-10.3); Magnesium 1.9 mg/dL (1.6-2.6); Phosphorous 4.4 mg/dL (2.7-4.5); Potassium 3.6 mEq/L (3.5-5.1)
[2021-07-16] MEDS: Calcium Gluconate 1gm/50mL 1 GM/50 ML BAG IVPB SCH ×2 (06:13→06:56)
[2021-07-16] MEDS: Pantoprazole 40 MG VIAL IVP SCH ×2 (06:21→16:18)
[2021-07-16] MEDS: Folic Acid 1 MG TABLET PO SCH (07:51)
[2021-07-16] MEDS: *HR* Amiodarone 200 MG TABLET PO SCH ×2 (07:51→21:53)
[2021-07-16] MEDS: Cholecalciferol (D-3) 1,000 UNIT (25MCG) TABLET PO SCH (07:51)
[2021-07-16] MEDS: Cyanocobalamin (B-12) 1,000 MCG TABLET PO SCH (09:21)
[2021-07-16] MEDS: Amiodarone Premix 360 MG/200 ML BAG IVC SCH (10:11)
[2021-07-16] MEDS: Budesonide/Formoterol 80/4.5 1 PUFF INH IH SCH ×2 (10:36→21:01)
[2021-07-16] MEDS: Tiotropium 10 INH DOSE IH SCH (10:36)
[2021-07-16] MEDS: Nystatin Cream 15 GM TUBE TP SCH ×2 (11:44→21:53)
[2021-07-16] MEDS: Albumin 25% 25gram/100mL 25 GM/100 ML IV.SOLN IVPB SCH ×2 (16:19→23:11)
[2021-07-16] MEDS: Acetaminophen 325 MG TABLET PO PRN (23:10)
[2021-07-17] MEDS: Levalbuterol Neb 1.25 MG/3 ML IH SCH ×4 (04:12→22:55)
[2021-07-17 04:20] LABS: Nucleated Red Blood Cells 0.5 /100 WBC (0)
[2021-07-17 04:21] LABS: Hematocrit 18.2 % (35.3-44.9); Immature Granulocytes % 0.7 % (0-4); Immature Platelets 8.1 % (1.1-6.1); Lymphocytes # 0.4 K/mcL (0.6-4.6); Lymphocytes % 8.9 %; Mean Corpuscular Hemoglobin 29.4 pg (28.0-33.3); Mean Corpuscular Volume 89.2 fL (83.0-100.0); Monocytes # 0.2 K/mcL (0.0-1.3); Monocytes % 4.8 %; Neutrophils # 3.6 K/mcL (1.6-8.9); Red Blood Count 2.04 M/mcL (3.82-4.97); Red Cell Distribution Width 17.4 % (11.5-14.5); Segmented Neutrophils % 85.6 %; White Blood Count 4.2 K/mcL (4.3-11.1)
[2021-07-17] MEDS: *HR* LORazepam 1 MG TABLET PO PRN ×2 (04:24→12:36)
[2021-07-17 04:35] LABS: Platelet Count 16 K/mcL (140-400)
[2021-07-17 04:37] LABS: Calcium 6.8 mg/dL (8.6-10.3); Magnesium 2.1 mg/dL (1.6-2.6); Phosphorous 3.4 mg/dL (2.7-4.5); Potassium 3.2 mEq/L (3.5-5.1)
[2021-07-17] MEDS ORDERED: 0.9 % Sodium Chloride 250 ML IVC SCH ×2 (04:45→19:17)
[2021-07-17] MEDS: Pantoprazole 40 MG VIAL IVP SCH ×2 (06:04→18:01)
[2021-07-17] MEDS: Cyanocobalamin (B-12) 1,000 MCG TABLET PO SCH (07:54)
[2021-07-17] MEDS: Cholecalciferol (D-3) 1,000 UNIT (25MCG) TABLET PO SCH (07:54)
[2021-07-17] MEDS: Folic Acid 1 MG TABLET PO SCH (07:54)
[2021-07-17] MEDS: Albumin 25% 25gram/100mL 25 GM/100 ML IV.SOLN IVPB SCH ×2 (07:55→15:18)
[2021-07-17] MEDS: *HR* Amiodarone 200 MG TABLET PO SCH ×2 (07:55→19:48)
[2021-07-17] MEDS: Nystatin Cream 15 GM TUBE TP SCH ×2 (07:56→19:48)
[2021-07-17] MEDS: Budesonide/Formoterol 80/4.5 1 PUFF INH IH SCH ×2 (08:01→22:55)
[2021-07-17] MEDS: Tiotropium 10 INH DOSE IH SCH (08:02)
[2021-07-17] MEDS ORDERED: 0.9 % Sodium Chloride 500 ML ONE (11:23)
[2021-07-17] MEDS: Acetaminophen 325 MG TABLET PO PRN (12:35)
[2021-07-17] MEDS ORDERED: 0.9 % Sodium Chloride 250 ML ONE (15:14)
[2021-07-17] MEDS ORDERED: Ondansetron ODT 4 MG TAB.RAPDIS SL PRN (19:17)
[2021-07-17] MEDS ORDERED: *HR* LORazepam 1 MG TABLET PO PRN (19:17)
[2021-07-17] MEDS ORDERED: Naloxone 0.4 MG/ML INJ IVP PRN (19:17)
[2021-07-17] MEDS ORDERED: Nystatin POWDER 30 GM BOTTLE TP PRN (19:17)
[2021-07-17] MEDS ORDERED: D5% in Water 1,000 ML IVC PRN (19:17)
[2021-07-17] MEDS ORDERED: *HR* Dextrose 50 % in Water (Syg) 50 ML SYRINGE IVP PRN (19:17)
[2021-07-17] MEDS ORDERED: Melatonin 3 MG TABLET PO PRN (19:17)
[2021-07-17] MEDS ORDERED: Dextrose Gel 15 GM/37.5 ML TUBE PO PRN ×2 (19:17)
[2021-07-17] MEDS ORDERED: *HR* Metoprolol 5 MG/5 ML VIAL IVP PRN (19:17)
[2021-07-17] MEDS ORDERED: Acetaminophen 325 MG TABLET PO PRN (19:17)
[2021-07-17 22:32] LABS: Eosinophils % 0.4 %; Hematocrit 17.4 % (35.3-44.9); Monocytes % 3.8 %; Nucleated Red Blood Cells 0.4 /100 WBC (0)
[2021-07-17 22:34] LABS: Immature Granulocytes % 0.8 % (0-4); Immature Platelets 5.4 % (1.1-6.1); Lymphocytes # 0.4 K/mcL (0.6-4.6); Lymphocytes % 9.1 %; Mean Corpuscular HGB Conc 32.2 g/dL (31.6-35.5); Mean Corpuscular Volume 90.2 fL (83.0-100.0); Mean Platelet Volume 9.2 fL (9.4-12.4); Monocytes # 0.2 K/mcL (0.0-1.3); Red Blood Count 1.93 M/mcL (3.82-4.97); Red Cell Distribution Width 16.4 % (11.5-14.5); Segmented Neutrophils % 85.9 %; White Blood Count 4.7 K/mcL (4.3-11.1)
[2021-07-17 22:35] LABS: Hemoglobin 5.6 g/dL (11.5-15.4); Platelet Count 17 K/mcL (140-400)
[2021-07-18] MEDS: Albumin 25% 25gram/100mL 25 GM/100 ML IV.SOLN IVPB SCH ×2 (00:04→08:32)
[2021-07-18] MEDS: Levalbuterol Neb 1.25 MG/3 ML IH SCH ×2 (03:29→07:53)
[2021-07-18] MEDS ORDERED: Pantoprazole 40 MG VIAL IVP SCH (06:00)
[2021-07-18 06:24] LABS: Hemoglobin 6.4 g/dL (11.5-15.4); Red Cell Distribution Width 16.1 % (11.5-14.5)
[2021-07-18 06:26] LABS: Eosinophils % 0.8 %; Hematocrit 19.9 % (35.3-44.9); Immature Granulocytes % 0.5 % (0-4); Immature Platelets 3.1 % (1.1-6.1); Lymphocytes # 0.3 K/mcL (0.6-4.6); Mean Corpuscular HGB Conc 32.2 g/dL (31.6-35.5); Mean Platelet Volume 9.7 fL (9.4-12.4); Monocytes # 0.1 K/mcL (0.0-1.3); Monocytes % 3.4 %; Neutrophils # 3.4 K/mcL (1.6-8.9); Nucleated Red Blood Cells 0.5 /100 WBC (0); Red Blood Count 2.21 M/mcL (3.82-4.97); Segmented Neutrophils % 87.3 %; White Blood Count 3.9 K/mcL (4.3-11.1)
[2021-07-18 06:28] LABS: Platelet Count 33 K/mcL (140-400)
[2021-07-18 06:44] LABS: Albumin 3.1 g/dL (3.5-5.7); Albumin/Globulin Ratio 2.8 (1.1-2.2); Bilirubin,Total 1.1 mg/dL (0.3-1.0); Calcium 6.8 mg/dL (8.6-10.3); Globulin 1.1 g/dL (2.4-3.5); Total Protein 4.2 g/dL (6.4-8.9)
[2021-07-18] MEDS: Budesonide/Formoterol 80/4.5 1 PUFF INH IH SCH (07:54)
[2021-07-18] MEDS ORDERED: 0.9 % Sodium Chloride 250 ML IVC SCH (08:15)
[2021-07-18] MEDS: Nystatin Cream 15 GM TUBE TP SCH ×2 (08:33→19:39)
[2021-07-18] MEDS: *HR* Amiodarone 200 MG TABLET PO SCH ×2 (08:33→19:39)
[2021-07-18] MEDS ORDERED: 0.9 % Sodium Chloride 500 ML ONE (08:35)
[2021-07-18] MEDS ORDERED: Cyanocobalamin (B-12) 1,000 MCG TABLET PO SCH (09:00)
[2021-07-18] MEDS ORDERED: Cholecalciferol (D-3) 1,000 UNIT (25MCG) TABLET PO SCH (09:00)
[2021-07-18] MEDS ORDERED: Megestrol Acetate 400 MG/10 ML UDC PO SCH ×2 (09:00)
[2021-07-18] MEDS ORDERED: Folic Acid 1 MG TABLET PO SCH (09:00)
[2021-07-18] MEDS ORDERED: Tiotropium 10 INH DOSE IH SCH (10:00)
[2021-07-18] MEDS ORDERED: Furosemide 20 MG/2 ML VIAL IVP ONE (12:33)
[2021-07-18] MEDS ORDERED: Morphine Sulfate 2 MG/ML SYRINGE IVP ONE (13:14)
[2021-07-18] MEDS ORDERED: Haloperidol Lactate 5 MG/ML VIAL IVP PRN (13:23)
[2021-07-18] MEDS ORDERED: Morphine Sulfate 2 MG/ML SYRINGE IVP PRN (13:23)
[2021-07-18] MEDS ORDERED: Ondansetron 4 MG/2 ML VIAL IVP PRN (13:23)
[2021-07-18] MEDS ORDERED: Atropine 1% Opth Drops 100 DROP/5 ML BOTTLE SL PRN (13:23)
[2021-07-18] MEDS: *HR* LORazepam 2 MG/ML VIAL IVP PRN ×2 (14:37→20:33)
[2021-07-18 20:05] VITALS: BP 81/35; PULSE 82; TEMP 97.9; O2SAT 84
== END 2021-07-19 01:15 | disposition expired | DRG 871 ==
LOC: EMEROOARM 16:18 → 3BNU 16:18 → SUATTDRO 07-11 12:42 → 3NENU 07-12 01:26 → 2NNU 07-14 12:05
PROVIDERS: ADMIT Internal Medicine; ATTEND Internal Medicine